=== PATIENT | female | born 1950 | race Caucasian/White ===

== ENCOUNTER 2017-05-31 11:53 | Emergency (ER) | payer MEDICARE ==
[~2017-05-31] VITALS: Ht 162.6 cm; Wt 90.7 kg
[~2017-05-31 11:53] MED LIST: ASP325T PO; ATEN50TA PO; GBPN300C PO; GLIP10TA13 PO; PNT40TEC PO; POTA20TA15 PO; SIMV40TA4 PO; SULF1TAB35 PO; THM100T PO
--- OUTSIDE RECORDS SUMMARY | 2017-05-31 11:59 | XMS REPORT ---
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
--- NOTE | 2017-05-31 12:09 | ED Neurological Problem ---
General Chief Complaint: Neuro-Stroke Like Symptoms Stated Complaint: THROAT FEELS LIKE IT IS CLOSING/SPEECH ISSUES Source: patient, family Exam Limitations: no limitations History of Present Illness Time seen by provider: 12:06 Initial Comments To ER with a 5 day history of difficulty swallowing and speech issues. Patient speaks in single words or very short phrases and when asked if she knows what she wants to say but can't get the words out she shakes her head yes. She states this began about a week ago. She feels that her symptoms are not any worse today than they were 5 days ago, she only presents today because her family insisted she be checked out. However, her daughter who is present reports that her symptoms of aphasia/dysphasia are worse today than they were yesterday. She does report a history of a stroke in the past. She is on a daily aspirin. She states she otherwise feels fine. Daughter reports that she did have a stroke in 2000 with some right-sided weakness. Timing/Duration: 1 week Severity: moderate Associated Symptoms: No numbness in legs/feet, No paresthesia, No ringing in ears, No seizures, No sleepy Allergies and Home Medications Allergies Coded Allergies: No Known Drug Allergies (Unverified , 04/17/12) Home Medications Aspirin 325 Mg Tab, 325 MG PO DAILY, (Reported) Atenolol 50 Mg Tablet, 50 MG PO DAILY, (Reported) Gabapentin 300 Mg Cap, 300 MG PO HS, (Reported) Glipizide 10 Mg Tablet, 10 MG PO DAILY, (Reported) Pantoprazole Sodium 40 Mg Tablet.dr, 40 MG PO DAILY, #30 (Reported) Constitutional: see HPI Eyes: No Symptoms Reported Ears, Nose, Mouth, Throat: no symptoms reported Respiratory: no symptoms reported Cardiovascular: no symptoms reported Genitourinary: no symptoms reported Musculoskeletal: no symptoms reported Skin: no symptoms reported Psychiatric/Neurological: See HPI Endocrine: No Symptoms Reported Hematologic/Lymphatic: No Symptoms Reported Past Qeibzwe-Cqtwhh-Jmache Hx Patient Social History Alcohol Use: Denies Use Recreational Drug Use: No Smoking Status: Current Everyday Smoker Type Used: Cigarettes Recent Hopitalizations: Yes Immunizations Up To Date Date of Pneumonia Vaccine: Feb 01, 2012 Date of Influenza Vaccine: Aug 12, 2013 Surgeries HX Surgeries: Yes (CAROTIDS) Respiratory Hx Respiratory Disorders: No Cardiovascular Hx Cardiac Disorders: Yes Neurological Hx Neurological Disorders: Yes (STROKE 01) Neurological Disorders: Stroke Reproductive System Hx Reproductive Disorders: No Genitourinary Hx Genitourinary Disorders: No Gastrointestinal Hx Gastrointestinal Disorders: Yes Gastrointestinal Disorders: Ulcer Musculoskeletal Hx Musculoskeletal Disorders: Yes Musculoskeletal Disorders: Arthritis Endocrine Hx Endocrine Disorders: Yes Endocrine Disorders: Diabetes, Non-Insulin dep HEENT HX ENT Disorders: No Cancer Hx Cancer: Yes Cancer: Skin Psychosocial Hx Psychiatric Problems: No Integumentary HX Skin/Integumentary Disorder: No Blood Transfusions Hx Blood Disorders: No Physical Exam Vital Signs Vital Sign - Last 12Hours 05/31/17 11:55 Temp 98.3 Pulse 58 Resp 18 B/P (MAP) 169/69 Pulse Ox 93 Capillary Refill : General Appearance: WD/WN HEENT: PERRL/EOMI, normal ENT inspection Neck: non-tender, full range of motion Respiratory: no respiratory distress, no accessory muscle use Cardiovascular: regular rate, rhythm, no murmur Gastrointestinal: normal bowel sounds, non tender, soft Neurologic/Psychiatric: alert, normal mood/affect, oriented x 3 Crainal Nerves: normal hearing, normal speech Motor/Sensory: no motor deficit, no sensory deficit Skin: normal color, warm/dry Comments She does speak in single words and very short phrases rather than in a fluent sentence as seen with expressive aphasia Stroke Onset of Symptoms Date of Onset of Symptoms: May 25, 2017 Onset of Symptoms: Yes NIH Stroke Scale Assessment Level of Consciousness: 0=Alert Level of Consciousness-Questio: 0=Answers both month/age LOC Commands: 0=Performs both tasks Gaze: 0=Normal Visual Bowman: 0=No visual loss Facial Movement (Facial Paresi: 0=Normal symmetrical mnt Motor Function-Arms Right: 0=No drift Motor Function-Arms Left: 0=No drift Motor Function-Legs Right: 0=No drift Limb Ataxia: 0=Absent Sensory: 0=Normal:no loss (she does have sharp sensory loss to bilateral lower extremities but reports that this is normal for her secondary to diabetes and the sensory loss is no greater than usual) Best Language: 1=Mild to moderat aphasia Dysarthria: 1=Mild to moderate loss Extinction & Inattention: 0=No abnormality NIH Stroke Scale Score: 2 Progress/Results/Core Measures Results/Orders Lab Results Laboratory Tests Test 05/31/17 12:10 Range/Units White Blood Count 8.8 4.3-11.0 10^3/uL Red Blood Count 4.99 4.35-5.85 10^6/uL Hemoglobin 15.2 11.5-16.0 G/DL Hematocrit 47 35-52 % Mean Corpuscular Volume 94 80-99 FL Mean Corpuscular Hemoglobin 31 25-34 PG Mean Corpuscular Hemoglobin Concent 32 32-36 G/DL Red Cell Distribution Width 14.9 H 10.0-14.5 % Platelet Count 343 130-400 10^3/uL Mean Platelet Volume 9.3 7.4-10.4 FL Neutrophils (%) (Auto) 66 42-75 % Lymphocytes (%) (Auto) 21 12-44 % Monocytes (%) (Auto) 9 0-12 % Eosinophils (%) (Auto) 4 0-10 % Basophils (%) (Auto) 1 0-10 % Neutrophils # (Auto) 5.8 1.8-7.8 X 10^3 Lymphocytes # (Auto) 1.8 1.0-4.0 X 10^3 Monocytes # (Auto) 0.8 0.0-1.0 X 10^3 Eosinophils # (Auto) 0.3 0.0-0.3 10^3/uL Basophils # (Auto) 0.1 0.0-0.1 10^3/uL Prothrombin Time 12.4 12.2-14.7 SEC INR Comment 1.0 0.8-1.4 Activated Partial Thromboplast Time 26 24-35 SEC D-Dimer 0.83 H 0.00-0.49 UG/ML Sodium Level 139 135-145 MMOL/L Potassium Level 4.2 3.6-5.0 MMOL/L Chloride Level 99 98-107 MMOL/L Carbon Dioxide Level 29 21-32 MMOL/L Anion Gap 11 5-14 MMOL/L Blood Urea Nitrogen 9 7-18 MG/DL Creatinine 0.76 0.60-1.30 MG/DL Estimat Glomerular Filtration Rate > 60 BUN/Creatinine Ratio 12 Glucose Level 119 H 70-105 MG/DL Calcium Level 10.0 8.5-10.1 MG/DL Total Bilirubin 0.6 0.1-1.0 MG/DL Aspartate Amino Transf (AST/SGOT) 13 5-34 U/L Alanine Aminotransferase (ALT/SGPT) 12 0-55 U/L Alkaline Phosphatase 77 40-136 U/L Total Protein 7.7 6.4-8.2 GM/DL Albumin 3.6 3.2-4.5 GM/DL My Orders Orders - BRITTON JEAN APRN Ct Head Wo-R/O Stroke (05/31/17 12:05) Cbc With Automated Diff (05/31/17 12:05) Comprehensive Metabolic Panel (05/31/17 12:05) Protime With Inr (05/31/17 12:05) Fibrin Degradation Products (05/31/17 12:05) Partial Thromboplastin Time (05/31/17 12:05) Chest 1 View, Ap/Pa Only (05/31/17 12:05) Ekg Tracing (05/31/17 12:05) Saline Lock/Iv-Start (05/31/17 12:05) Ct Chest W (05/31/17 12:44) Mri Brain W/Wo Contrast (05/31/17 12:48) Ns Iv 1000 Ml (Sodium Chloride 0.9%) (05/31/17 13:00) Iohexol Injection (Omnipaque 350 Mg/Ml 1 (05/31/17 13:00) Sodium Chloride Flush (Catheter Flush Sy (05/31/17 13:00) Medications Given in ED Current Medications Medications Dose Ordered Sig/Sunny Route Start Time Stop Time Status Last Admin Dose Admin Iohexol 75 ml ONCE ONCE IV 05/31/17 13:00 05/31/17 13:04 DC 05/31/17 13:39 75 ML Sodium Chloride 10 ml NEEDED PRN IV 05/31/17 13:00 05/31/17 13:39 10 ML Vital Signs/I&O Vital Sign - Last 12Hours 05/31/17 11:55 Temp 98.3 Pulse 58 Resp 18 B/P (MAP) 169/69 Pulse Ox 93 Diagnostic Imaging Diagonstic Imaging: CT Comments NAME: CHEMOPEDRO K [facility] REC#: [id number] PT STATUS: REG ER : 1950 PHYSICIAN: BRITTON JEAN APRN ADMIT DATE: 05/31/17/ER Draft Date of Exam:05/31/17 CT HEAD WO-R/O STROKE INDICATION: Difficulty speaking x1 week. Noncontrast brain CT is performed. There is no recent prior study for comparison. FINDINGS: There are mild diffuse atrophic changes. There is an old left frontal infarct involving the cortex and subcortical white matter and deep white matter. There is no acute hemorrhage or mass effect or midline shift. Calvarial windows are unremarkable. IMPRESSION: Old left frontal infarct. No acute hemorrhage or mass effect or acute intracranial finding. Dictated on workstation # [id number] Dict: 05/31/17 1232 Trans: 05/31/17 1235 [id number] Interpreted by: UBALDO BYRNES MD Electronically signed by: NAME: PEDRO MCLAIN [facility] REC#: [id number] PT STATUS: REG ER : 1950 PHYSICIAN: BRITTON JEAN APRN ADMIT DATE: 05/31/17/ER Draft Date of Exam:05/31/17 CT CHEST W PROCEDURE: CT chest with contrast only. TECHNIQUE: Multiple contiguous axial images were obtained through the chest after administration of intravenous contrast. INDICATION: Lung nodules. 75 ML of Omnipaque 350 is administered intravenously. FINDINGS: There is a 4.6 x 4.1 x 3.9 cm irregular mass in the lateral aspect of the left upper lobe with appearance consistent with lung cancer. A small nodule in a similar location was seen on 08/12/2013 measuring 1.2 CM. There is a circumscribed nodule measuring 2.1 CM in the left lower lobe enlarged from the previous exam where it measured 1.5 CM. It has intrinsic fat density and is likely a hamartoma. No other suspicious nodules or mass is identified. There are mild emphysema changes in the upper lobes with no significant consolidation or mass in the right lung. There are nonspecific minimally prominent lymph nodes in the left hilum up to 0.7 CM in size and there is a subaortic lymph node measuring 0.7 CM and right paratracheal lymph node measuring one CM in size. Borderline sized 1 cm right hilar lymph node is also seen. The heart size is slightly enlarged. There is no pericardial or pleural effusion. Sections in the upper abdomen demonstrate stable left adrenal nodule measuring 1.2 CM in size probably an adenoma. The osseous structures demonstrate degenerative changes with no suspicious mass. IMPRESSION: 1. There is a mass measuring 4.6 CM in the left upper lobe concerning for lung cancer. The lymph nodes seen in the alexus and mediastinum are borderline in size and may or may not be neoplastic. PET/CT evaluation is suggested. 2. The 2.1 cm nodule in the left lower lobe is likely related to hamartoma. 3. A 1.2 cm left adrenal nodule stable from the prior exam likely an adenoma. The findings were discussed with the KEREN Palumbo taking care of the patient at time of dictation. Dictated on workstation # [id number] Departure Communication Progress Notes 1508-I did discuss the case with Dr. Alexus Peters. She agrees to discharge the patient home with close follow-up. She will call me back with an appointment time. 1516-appointment time tomorrow morning at 820 a.m. Impression Impression: Primary Impression: Expressive aphasia Additional Impressions: left frontal cerebral infarct Lung mass Disposition: 01 HOME, SELF-CARE Condition: Stable Departure-Patient Inst. Decision time for Depature: 15:08 Referrals: [facility] (PCP) Primary Care Physician FERNY ROJAS (Family) Primary Care Physician Patient Instructions: Left-Side Stroke, NO INSTRUCTIONS GIVEN Add. Discharge Instructions: 1. Follow-up with [facility] 2. Return to ER for any concerns 3. All discharge instructions reviewed with patient and/or family. Voiced understanding. Copy Copies To 2: ALEXUS PETERS MD, PETER J APRN May 31, 2017 12:09
[2017-05-31 12:22] LABS: BASOPHILS # (AUTO) 0.1 10^3/uL (0.0-0.1); BASOPHILS % (AUTO) 1 % (0-10); EOSINOPHILS # (AUTO) 0.3 10^3/uL (0.0-0.3); EOSINOPHILS % (AUTO) 4 % (0-10); LYMPHOCYTES # (AUTO) 1.8 X 10^3 (1.0-4.0); LYMPHOCYTES % (AUTO) 21 % (12-44); MEAN CORPUSCULAR HEMOGLOBIN 31 PG (25-34); MEAN CORPUSCULAR HGB CONC 32 G/DL (32-36); MEAN CORPUSCULAR VOLUME 94 FL (80-99); MEAN PLATELET VOLUME 9.3 FL (7.4-10.4); MONOCYTES # (AUTO) 0.8 X 10^3 (0.0-1.0); MONOCYTES % (AUTO) 9 % (0-12); NEUTROPHILS # (AUTO) 5.8 X 10^3 (1.8-7.8); NEUTROPHILS % (AUTO) 66 % (42-75); PLATELET COUNT 343 10^3/uL (130-400); RED BLOOD COUNT 4.99 10^6/uL (4.35-5.85); RED CELL DISTRIBUTION WIDTH 14.9 % (10.0-14.5); WHITE BLOOD COUNT 8.8 10^3/uL (4.3-11.0)
[2017-05-31 12:28] LABS: PROTHROMBIN TIME PATIENT 12.4 SEC (12.2-14.7)
--- NOTE | 2017-05-31 12:35 | Diagnostic Imaging Report ---
INDICATION: Difficulty speaking x1 week. Noncontrast brain CT is performed. There is no recent prior study for comparison. FINDINGS: There are mild diffuse atrophic changes. There is an old left frontal infarct involving the cortex and subcortical white matter and deep white matter. There is no acute hemorrhage or mass effect or midline shift. Calvarial windows are unremarkable. IMPRESSION: Old left frontal infarct. No acute hemorrhage or mass effect or acute intracranial finding. Dictated by: Dictated on workstation # [id number]
[2017-05-31 12:38] LABS: ALANINE AMINOTRANSFERASE 12 U/L (0-55); ALBUMIN 3.6 GM/DL (3.2-4.5); ANION GAP 11 MMOL/L (5-14); ASPARTATE AMINO TRANSFERASE 13 U/L (5-34); BILIRUBIN,TOTAL 0.6 MG/DL (0.1-1.0); BLOOD UREA NITROGEN 9 MG/DL (7-18); BUN/CREATININE RATIO 12; CARBON DIOXIDE 29 MMOL/L (21-32); CHLORIDE 99 MMOL/L (98-107); CREATININE SERUM 0.76 MG/DL (0.60-1.30); GFR ESTIMATED > 60; GLUCOSE 119 MG/DL (70-105); POTASSIUM 4.2 MMOL/L (3.6-5.0); SODIUM 139 MMOL/L (135-145); TOTAL PROTEIN 7.7 GM/DL (6.4-8.2)
[2017-05-31] MEDS ORDERED: NS IV 1000 ML 1,000 ML IV SCH (13:00)
[2017-05-31] MEDS ORDERED: IOHEXOL 350 MG/ML 100 ML (OMNIPAQUE 350) VIAL IV ONE (13:00)
[2017-05-31] MEDS ORDERED: CATHETER FLUSH 10 ML SYR IV PRN (13:00)
--- NOTE | 2017-05-31 13:09 | Diagnostic Imaging Report ---
INDICATION: Difficulty articulating. Possible stroke. COMPARISON: 08/12/2013 FINDINGS: Single frontal view of the chest is obtained. Heart size is normal. The pulmonary vessels appear unremarkable. There is no pneumothorax or pleural fluid. There is a 6 cm lobulated mass in the left upper lobe considerably larger than on the prior study. There is also a 2.5 cm nodule in the left lower chest increased in size from the prior study. These are concerning for malignancy. The lungs are otherwise clear. IMPRESSION: There is an enlarging 6 cm lobulated mass in left upper lobe and there is an enlarging 2.6 cm nodule in the left lower lobe concerning for neoplasm. CT scan of the chest is recommended for further evaluation. Report given to Josue Suárez APRN, at 1:08 p.m. 05/31/2017/ariella Dictated by: Dictated on workstation # [id number]
[2017-05-31] MEDS ORDERED: GADOBUTROL 10 MMOL/10 ML (GADAVIST) VIAL IV ONE (14:00)
--- NOTE | 2017-05-31 14:08 | Diagnostic Imaging Report ---
PROCEDURE: CT chest with contrast only. TECHNIQUE: Multiple contiguous axial images were obtained through the chest after administration of intravenous contrast. INDICATION: Lung nodules. 75 ML of Omnipaque 350 is administered intravenously. FINDINGS: There is a 4.6 x 4.1 x 3.9 cm irregular mass in the lateral aspect of the left upper lobe with appearance consistent with lung cancer. A small nodule in a similar location was seen on 08/12/2013 measuring 1.2 CM. There is a circumscribed nodule measuring 2.1 CM in the left lower lobe enlarged from the previous exam where it measured 1.5 CM. It has intrinsic fat density and is likely a hamartoma. No other suspicious nodules or mass is identified. There are mild emphysema changes in the upper lobes with no significant consolidation or mass in the right lung. There are nonspecific minimally prominent lymph nodes in the left hilum up to 0.7 CM in size and there is a subaortic lymph node measuring 0.7 CM and right paratracheal lymph node measuring one CM in size. Borderline sized 1 cm right hilar lymph node is also seen. The heart size is slightly enlarged. There is no pericardial or pleural effusion. Sections in the upper abdomen demonstrate stable left adrenal nodule measuring 1.2 CM in size probably an adenoma. The osseous structures demonstrate degenerative changes with no suspicious mass. IMPRESSION: 1. There is a mass measuring 4.6 CM in the left upper lobe concerning for lung cancer. The lymph nodes seen in the alexus and mediastinum are borderline in size and may or may not be neoplastic. PET/CT evaluation is suggested. 2. The 2.1 cm nodule in the left lower lobe is likely related to hamartoma. 3. A 1.2 cm left adrenal nodule stable from the prior exam likely an adenoma. The findings were discussed with the KEREN Palumbo taking care of the patient at time of dictation. Dictated by: Dictated on workstation # [id number]
--- NOTE | 2017-05-31 14:30 | Diagnostic Imaging Report ---
PROCEDURE: MR imaging of the brain with and without contrast. TECHNIQUE: Multiplanar, multisequence MR imaging of the brain was performed with and without contrast. INDICATION: Difficulty speaking for a week. Suspicious lung mass, probably related to lung cancer is seen on chest imaging. 9 mL of Gadavist is administered intravenously. FINDINGS: There is no diffusion restriction to suggest an acute infarct. There is encephalomalacia in the left frontal lobe extending to the basal ganglia region with no mass effect and no associated abnormal enhancement suggestive of an old infarct. There is ex vacuo dilatation of the left frontal horn of the lateral ventricle. There is no hydrocephalus. There are periventricular and deep white matter T2 hyperintense signal areas without mass effect or enhancement compatible with chronic white matter ischemic changes. Similar findings in ryne white matter tracts are seen. The cerebellum appears unremarkable. The pituitary gland is not enlarged. No hypothalamic or pineal region mass. No extra-axial fluid collection is noted. The internal auditory canals and inner ear structures appear symmetric. There is a dominant left vertebral artery. The central vascular flow-voids appear symmetric. There is mucosal thickening in the left posterior ethmoidal air cells. The orbits appear symmetric. IMPRESSION: Findings compatible with a left frontal old infarct. No acute infarct or enhancing mass. Dictated by: Dictated on workstation # [id number]
[2017-05-31 15:30] VITALS: BP 148/72
== END 2017-05-31 15:30 | disposition home or self-care (01) ==
LOC: EDUNIT# 11:53 → ER 11:56
DX: R47.01 Aphasia (principal); R13.10 Dysphagia, unspecified; R91.8 Other nonspecific abnormal finding of lung field; E27.9 Disorder of adrenal gland, unspecified; E11.9 Type 2 diabetes mellitus without complications; F17.210 Nicotine dependence, cigarettes, uncomplicated; Z79.82 Long term (current) use of aspirin; Z79.84 Long term (current) use of oral hypoglycemic drugs; Z79.899 Other long term (current) drug therapy; Z86.73 Personal history of transient ischemic attack (TIA), and cerebral infarction without residual deficits
CPT/HCPCS: 36415; 70450; 70553; 71010; 71260; 80053; 85025; 85379; 85610; 85730; 93005; 96360

== ENCOUNTER 2017-06-02 09:03 | Observation (INO) | payer MEDICARE ==
[~2017-06-02] VITALS: Ht 162.6 cm; Wt 90.9 kg
--- NOTE | 2017-06-02 09:21 | ED Neurological Problem ---
General Stated Complaint: SOA Source: patient Exam Limitations: no limitations History of Present Illness Time seen by provider: 09:05 Initial Comments Here with report difficulty with swallowing. Reports that her tongue feels swollen although she is having difficulty forming words overall. Seen a few days ago for strokelike symptoms and ultimately was discharged home. States it' s worse this morning but patient is having difficulty expressing her thoughts/ concerns verbally. She is word searching and sometimes completely unable to form words. Denies breathing problems. Denies weakness otherwise and this seems to be affecting essentially just speech. Patient walked into the room with a steady gait. Denies chest pain or breathing problems. Denies nausea, vomiting or diarrhea. Symptoms worsened when she was trying to eat a bagel today although she has had persistent symptoms since onset prior to his visit 2 days ago.. Timing/Duration: 1 hour Severity: moderate Associated Symptoms: No confusion, No fatigue, No fever/chills, No nausea/ vomiting, No paresthesia, No seizures, slurred speech, No trouble walking, No weakness Allergies and Home Medications Allergies Coded Allergies: No Known Drug Allergies (Unverified , 04/17/12) Home Medications Aspirin 325 Mg Tab, 325 MG PO DAILY, (Reported) Atenolol 50 Mg Tablet, 50 MG PO DAILY, (Reported) Gabapentin 300 Mg Cap, 300 MG PO HS, (Reported) Glipizide 10 Mg Tablet, 10 MG PO DAILY, (Reported) Pantoprazole Sodium 40 Mg Tablet.dr, 40 MG PO DAILY, #30 (Reported) Constitutional: see HPI, No chills, No fever Eyes: No Symptoms Reported Ears, Nose, Mouth, Throat: see HPI, mouth swelling (tongue) Respiratory: no symptoms reported Cardiovascular: no symptoms reported Gastrointestinal: No nausea, No vomiting Genitourinary: no symptoms reported Musculoskeletal: no symptoms reported All Other Systems Reviewed Negative Unless Noted: Yes Past Ijovzoi-Hetbps-Yekryn Hx Patient Social History Alcohol Use: Denies Use Recreational Drug Use: No Smoking Status: Current Everyday Smoker Type Used: Cigarettes Recent Foreign Travel: No Contact w/Someone Who Travel: No Recent Hopitalizations: Yes Immunizations Up To Date Date of Pneumonia Vaccine: Feb 01, 2012 Date of Influenza Vaccine: Aug 12, 2013 Surgeries HX Surgeries: Yes (CAROTIDS) Surgeries: Vascular Surgery Respiratory Hx Respiratory Disorders: No Cardiovascular Hx Cardiac Disorders: Yes Cardiac Disorders: Hypertension Neurological Hx Neurological Disorders: Yes (STROKE 01) Neurological Disorders: Stroke Reproductive System Hx Reproductive Disorders: No Genitourinary Hx Genitourinary Disorders: No Gastrointestinal Hx Gastrointestinal Disorders: Yes Gastrointestinal Disorders: Ulcer Musculoskeletal Hx Musculoskeletal Disorders: Yes Musculoskeletal Disorders: Arthritis Endocrine Hx Endocrine Disorders: Yes Endocrine Disorders: Diabetes, Non-Insulin dep HEENT HX ENT Disorders: No Cancer Hx Cancer: Yes Cancer: Skin Psychosocial Hx Psychiatric Problems: No Integumentary HX Skin/Integumentary Disorder: No Blood Transfusions Hx Blood Disorders: No Reviewed Nursing Assessment Reviewed/Agree w Nursing PMH: Yes Family Medical History Significant Family History: No Pertinent Family Hx Physical Exam Vital Signs Vital Sign - Last 12Hours 06/02/17 09:15 Temp 98.2 Pulse 59 Resp 20 B/P (MAP) 150/70 Pulse Ox 95 O2 Delivery Room Air Capillary Refill : General Appearance: WD/WN, no apparent distress HEENT: PERRL/EOMI, pharyngeal erythema, other (tongue is not significantly swollen and there does not appear to be deviation.) Neck: full range of motion, supple Respiratory: lungs clear, normal breath sounds Cardiovascular: regular rate, rhythm, no murmur Peripheral Pulses: 2+ Dorsalis Pedis (R), 2+ Left Dors-Pedis (L), 2+ Radial Pulses (R), 2+ Radial Pulses (L) Gastrointestinal: non tender, soft Back: normal inspection, no CVA tenderness, no vertebral tenderness Extremities: non-tender, normal inspection Neurologic/Psychiatric: alert, oriented x 3 Crainal Nerves: abnormal speech, No tongue deviation to R, No tongue deviation to L Coordination/Gait: normal gait Motor/Sensory: sensory deficit (right lower decreased from left lower but reported as residual from previous stroke.) Skin: normal color, warm/dry Progress/Results/Core Measures Results/Orders Lab Results Laboratory Tests Test 06/02/17 09:25 06/02/17 11:01 Range/Units White Blood Count 9.3 4.3-11.0 10^3/uL Red Blood Count 4.99 4.35-5.85 10^6/uL Hemoglobin 15.2 11.5-16.0 G/DL Hematocrit 47 35-52 % Mean Corpuscular Volume 95 80-99 FL Mean Corpuscular Hemoglobin 31 25-34 PG Mean Corpuscular Hemoglobin Concent 32 32-36 G/DL Red Cell Distribution Width 14.9 H 10.0-14.5 % Platelet Count 324 130-400 10^3/uL Mean Platelet Volume 9.5 7.4-10.4 FL Neutrophils (%) (Auto) 72 42-75 % Lymphocytes (%) (Auto) 15 12-44 % Monocytes (%) (Auto) 6 0-12 % Eosinophils (%) (Auto) 7 0-10 % Basophils (%) (Auto) 0 0-10 % Neutrophils # (Auto) 6.6 1.8-7.8 X 10^3 Lymphocytes # (Auto) 1.4 1.0-4.0 X 10^3 Monocytes # (Auto) 0.6 0.0-1.0 X 10^3 Eosinophils # (Auto) 0.6 H 0.0-0.3 10^3/uL Basophils # (Auto) 0.0 0.0-0.1 10^3/uL Prothrombin Time 12.1 L 12.2-14.7 SEC INR Comment 0.9 0.8-1.4 Activated Partial Thromboplast Time 28 24-35 SEC D-Dimer 0.93 H 0.00-0.49 UG/ML Sodium Level 140 135-145 MMOL/L Potassium Level 4.1 3.6-5.0 MMOL/L Chloride Level 100 98-107 MMOL/L Carbon Dioxide Level 29 21-32 MMOL/L Anion Gap 11 5-14 MMOL/L Blood Urea Nitrogen 12 7-18 MG/DL Creatinine 0.79 0.60-1.30 MG/DL Estimat Glomerular Filtration Rate > 60 BUN/Creatinine Ratio 15 Glucose Level 139 H 70-105 MG/DL Glucometer 147 H 70-110 MG/DL Calcium Level 9.8 8.5-10.1 MG/DL Total Bilirubin 0.6 0.1-1.0 MG/DL Aspartate Amino Transf (AST/SGOT) 12 5-34 U/L Alanine Aminotransferase (ALT/SGPT) 10 0-55 U/L Alkaline Phosphatase 77 40-136 U/L Troponin I < 0.30 <0.30 NG/ML Total Protein 7.4 6.4-8.2 GM/DL Albumin 3.5 3.2-4.5 GM/DL Urine Color YELLOW Urine Clarity CLEAR Urine pH 6 5-9 Urine Specific [place] 1.015 L 1.016-1.022 Urine Protein NEGATIVE NEGATIVE Urine Glucose (UA) NEGATIVE NEGATIVE Urine Ketones NEGATIVE NEGATIVE Urine Nitrite NEGATIVE NEGATIVE Urine Bilirubin NEGATIVE NEGATIVE Urine Urobilinogen NORMAL NORMAL MG/DL Urine Leukocyte Esterase 1+ H NEGATIVE Urine RBC (Auto) NEGATIVE NEGATIVE Urine RBC NONE /HPF Urine WBC 2-5 /HPF Urine Squamous Epithelial Cells 25-50 H /HPF Urine Crystals NONE /LPF Urine Bacteria FEW H /HPF Urine Casts NONE /LPF Urine Mucus NEGATIVE /LPF Urine Culture Indicated YES My Orders Orders - PATRICK FINLEY MD Cbc With Automated Diff (06/02/17 09:12) Protime With Inr (06/02/17 09:12) Partial Thromboplastin Time (06/02/17 09:12) Comprehensive Metabolic Panel (06/02/17 09:12) Fibrin Degradation Products (06/02/17 09:12) Troponin I (06/02/17 09:12) Ua Culture If Indicated (06/02/17 09:12) Chest 1 View, Ap/Pa Only (06/02/17 09:12) Ekg Tracing (06/02/17 09:12) Nothing By Mouth (06/02/17 Lunch) Accucheck Stat ONCE (06/02/17 09:12) Saline Lock/Iv-Start (06/02/17 09:12) Vital Signs - Stroke Q15M (06/02/17 09:12) Ct Head Wo-R/O Stroke (06/02/17 09:12) O2 (06/02/17 09:12) Intake & Output 06,14,22 (06/02/17 09:12) Monitor-Rhythm Ecg Trace Only (06/02/17 09:12) Dysphagia Screening Tool (06/02/17 09:12) Ns Iv 500 Ml (Sodium Chloride 0.9%) (06/02/17 10:28) Urine Culture (06/02/17 11:01) Nicotine Patch (Nicoderm Patch) (06/02/17 11:45) Medications Given in ED Current Medications Medications Dose Ordered Sig/Sunny Route Start Time Stop Time Status Last Admin Dose Admin Sodium Chloride 500 ml @ 0 mls/hr Q0M ONCE IV 06/02/17 10:28 06/02/17 10:29 DC 06/02/17 10:37 0 MLS/HR Vital Signs/I&O Vital Sign - Last 12Hours 8/12/17 09:15 Temp 98.2 Pulse 59 Resp 20 B/P (MAP) 150/70 Pulse Ox 95 O2 Delivery Room Air Progress Note : Progress Note Seen and evaluated. IV, labs, EKG, chest x-ray and CT head ordered. Stroke scale to related to difficulty with answering questions and decreased sensation right lower extremity. Some of this is residual but some of this is new with respect to speech difficulty. 1010: CT and x-ray reviewed. Labs reviewed. Urine still pending. Patient has had 2 visits for similar events related to difficulty with swallowing and speech. Does have history of stroke with right- sided deficit. Also concerns for lung cancer. Due to the difficulty swallowing , do believe patient may benefit from inpatient rehabilitation. 1100: Patient will likely meet criteria for rehabilitation admission. Patient to be admitted observation due to difficulty with swallowing and then likely transfer to inpatient rehabilitation unit. UA pending. 1130: UA complete. Likely contamination. Admit, observation status. Patient and friend verbalize understanding instructions and agreement with plan. ECG Initial ECG Impression Date: Jun 02, 2017 Initial ECG Impression Time: : Initial ECG Rate: 50 Initial ECG Rhythm: Normal Sinus Comment Sinus rhythm with normal axis. No evidence of ST elevation DC. Unchanged from previous from 05/31/17. Interpreted by me. Diagnostic Imaging Diagonstic Imaging: CT Plain Films/CT/US/NM/MRI: head Comments VIA [facility], [facility]. [place], [place] NAME: PEDRO MCLAIN [facility] REC#: [id number] PT STATUS: REG ER : 1950 PHYSICIAN: PATRICK FINLEY MD ADMIT DATE: 06/02/17/ER Draft Date of Exam:06/02/17 CT HEAD WO-R/O STROKE INDICATION: History of stroke, mental status changes. COMPARISON: 05/31/2017. FINDINGS: There is an area of encephalomalacia involving the left frontoparietal lobe which is stable. There is no new area of acute ischemia or hemorrhage. There is no midline shift or mass effect. The bony calvarium and visualized paranasal sinuses are stable. Mastoid air cells are clear. IMPRESSION: Stable area of encephalomalacia in the left frontoparietal lobe. No new finding identified to suggest acute ischemia or hemorrhage. Dictated on workstation # [id number] Dict: 06/02/17 1000 Trans: 06/02/17 1012 [id number] Interpreted by: FRAN MCDUFFIE Electronically signed by: Juliette Imaging: Xray Plain Films/CT/US/NM/MRI: chest Comments NAME: PEDRO MCLIAN [facility] REC#: [id number] PT STATUS: REG ER : 1950 PHYSICIAN: PATRICK FINLEY MD ADMIT DATE: 06/02/17/ER Signed Date of Exam: 06/02/17 CHEST 1 VIEW, AP/PA ONLY INDICATION: Stroke. Comparison made with prior examination from 05/31/17. FINDINGS: There is a persistent mass in the left upper lobe. There is also mass adjacent to left heart border. There is cardiomegaly and some venous congestion. There is no pleural effusion or pneumothorax. The mediastinum is unremarkable. IMPRESSION: Unchanged masslike densities in the left upper lobe and left lower lobe as described. Cardiomegaly and some central pulmonary venous congestion. Dictated by: Dictated on workstation # [id number] Dict: 06/02/17 1000 Trans: 06/02/17 1010 Interpreted by: ANIA RM Electronically signed by: ANIA RM 06/02/17 1010 Departure Communication Time/Spoke to Admitting Phy: 11:30 Impression Impression: Primary Impression: Dysphagia Additional Impressions: Lung mass residual weakness from previous stroke Disposition: ADMITTED INPATIENT Condition: Stable Admissions Decision to Admit Reason: Admit from ER (General) Decision to Admit/Date: Jun 02, 2017 Time/Decision to Admit Time: 11:30 Departure-Patient Inst. Referrals: [facility] (PCP/Family) Primary Care Physician PATRICK FINLEY MD Jun 02, 2017 09:21
[2017-06-02 09:31] LABS: BASOPHILS % (AUTO) 0 % (0-10); EOSINOPHILS # (AUTO) 0.6 10^3/uL (0.0-0.3); EOSINOPHILS % (AUTO) 7 % (0-10); LYMPHOCYTES # (AUTO) 1.4 X 10^3 (1.0-4.0); LYMPHOCYTES % (AUTO) 15 % (12-44); MEAN CORPUSCULAR HEMOGLOBIN 31 PG (25-34); MEAN CORPUSCULAR HGB CONC 32 G/DL (32-36); MEAN CORPUSCULAR VOLUME 95 FL (80-99); MEAN PLATELET VOLUME 9.5 FL (7.4-10.4); MONOCYTES # (AUTO) 0.6 X 10^3 (0.0-1.0); MONOCYTES % (AUTO) 6 % (0-12); NEUTROPHILS # (AUTO) 6.6 X 10^3 (1.8-7.8); NEUTROPHILS % (AUTO) 72 % (42-75); PLATELET COUNT 324 10^3/uL (130-400); RED BLOOD COUNT 4.99 10^6/uL (4.35-5.85); RED CELL DISTRIBUTION WIDTH 14.9 % (10.0-14.5); WHITE BLOOD COUNT 9.3 10^3/uL (4.3-11.0)
[2017-06-02 09:43] LABS: INR 0.9 (0.8-1.4); PROTHROMBIN TIME PATIENT 12.1 SEC (12.2-14.7)
[2017-06-02 09:52] LABS: ALANINE AMINOTRANSFERASE 10 U/L (0-55); ALBUMIN 3.5 GM/DL (3.2-4.5); ANION GAP 11 MMOL/L (5-14); ASPARTATE AMINO TRANSFERASE 12 U/L (5-34); BILIRUBIN,TOTAL 0.6 MG/DL (0.1-1.0); BLOOD UREA NITROGEN 12 MG/DL (7-18); BUN/CREATININE RATIO 15; CALCIUM 9.8 MG/DL (8.5-10.1); CARBON DIOXIDE 29 MMOL/L (21-32); CHLORIDE 100 MMOL/L (98-107); CREATININE SERUM 0.79 MG/DL (0.60-1.30); GFR ESTIMATED > 60; GLUCOSE 139 MG/DL (70-105); POTASSIUM 4.1 MMOL/L (3.6-5.0); SODIUM 140 MMOL/L (135-145); TOTAL PROTEIN 7.4 GM/DL (6.4-8.2)
[2017-06-02 09:58] LABS: TROPONIN I < 0.30 NG/ML (<0.30)
--- NOTE | 2017-06-02 10:06 | Diagnostic Imaging Report ---
INDICATION: Stroke. Comparison made with prior examination from 05/31/17. FINDINGS: There is a persistent mass in the left upper lobe. There is also mass adjacent to left heart border. There is cardiomegaly and some venous congestion. There is no pleural effusion or pneumothorax. The mediastinum is unremarkable. IMPRESSION: Unchanged masslike densities in the left upper lobe and left lower lobe as described. Cardiomegaly and some central pulmonary venous congestion. Dictated by: Dictated on workstation # [id number]
--- NOTE | 2017-06-02 10:13 | Diagnostic Imaging Report ---
INDICATION: History of stroke, mental status changes. COMPARISON: 05/31/2017. FINDINGS: There is an area of encephalomalacia involving the left frontoparietal lobe which is stable. There is no new area of acute ischemia or hemorrhage. There is no midline shift or mass effect. The bony calvarium and visualized paranasal sinuses are stable. Mastoid air cells are clear. IMPRESSION: Stable area of encephalomalacia in the left frontoparietal lobe. No new finding identified to suggest acute ischemia or hemorrhage. Dictated by: Dictated on workstation # [id number]
[2017-06-02] MEDS ORDERED: NS IV 500 ML 500 ML IV ONE (10:28)
[2017-06-02 11:08] LABS: BILIRUBIN,URINE NEGATIVE (NEGATIVE); KETONES,URINE NEGATIVE (NEGATIVE); LEUKOCYTE ESTERASE ,URINE 1+ (NEGATIVE); NITRITE,URINE NEGATIVE (NEGATIVE); PH,URINE 6 (5-9); PROTEIN,URINE NEGATIVE (NEGATIVE); UROBILINOGEN,URINE NORMAL (NORMAL)
[2017-06-02 11:27] LABS: SQUAMOUS EPITHELIAL CELL,UR 25-50 /HPF
[2017-06-02] MEDS ORDERED: NICOTINE 21 MG (NICODERM) PATCH TD ONE (11:45)
[2017-06-02] MEDS ORDERED: NS IV 1000 ML 1,000 ML IV SCH (13:15)
[2017-06-02 15:01] VITALS: BP 150/70
[2017-06-02] MEDS ORDERED: RT-ALBUTEROL/IPRATROPIUM 3 ML (DUONEB) VIAL INH PRN (15:15)
[2017-06-02 15:43] VITALS: BP 133/67
[2017-06-02] MEDS: RT-ALBUTEROL/IPRATROPIUM 3 ML (DUONEB) VIAL INH SCH (18:30)
[2017-06-02 20:00] VITALS: BP 136/75
[2017-06-02] MEDS ORDERED: GABAPENTIN 300 MG (NEURONTIN) CAP PO SCH (22:30)
[2017-06-03] VITALS: BP 132/60
[2017-06-03 04:00] VITALS: BP 115/67
--- NOTE | 2017-06-03 04:37 | Short Stay Summary ---
HPI Attending Physician Alexus Peters MD PCP [facility] [place] Consult Date of Admission Jun 02, 2017 at 11:32 am Home Medications Home Medications Reviewed patient Home Medication Reconciliation Form Allergies Coded Allergies: No Known Drug Allergies (Unverified , 04/17/12) ZWG-Ybsbaw-Eqrzfk Hx Patient Social History Alcohol Use: Denies Use Recreational Drug Use: No Smoking Status: Current Everyday Smoker Type Used: Cigarettes 2nd Hand Smoke Exposure: Yes Recent Foreign Travel: No Contact w/other who traveled: No Recent Hopitalizations: Yes Recent Infectious Disease Expo: No Physical Abuse Screen: No Sexual Abuse: No Immunizations Up To Date Date of Pneumonia Vaccine: Feb 01, 2012 Date of Influenza Vaccine: Aug 12, 2013 Family Medical History Significant Family History: No Pertinent Family Hx Physical Exam-(CHC) Physical Exam Vital Signs VS - Last 72 Hours, by Label 06/02/17 06/02/17 06/02/17 06/02/17 09:15 15:01 15:43 18:33 Temp 98.2 96.9 Pulse 59 59 51 Resp 20 19 B/P (MAP) 150/70 133/67 Pulse Ox 95 95 93 93 O2 Delivery Room Air Room Air FiO2 21 06/02/17 06/03/17 06/03/17 20:00 00:00 04:00 Temp 99.2 98.0 98.2 Pulse 69 63 64 Resp 18 18 18 B/P (MAP) 136/75 132/60 115/67 Pulse Ox 93 95 94 O2 Delivery Room Air Capillary Refill : Less Than 3 Seconds Clinical Quality Measures DVT/VTE Risk/Contraindication: Risk Factor Score Per Nursin RFS Level Per Nursing on Admit: 4+=Very High Stroke: Date of last known well: May 26, 2017 ALEXUS PETERS MD Jun 03, 2017 4:37 am
[2017-06-03 06:39] LABS: BASOPHILS % (AUTO) 0 % (0-10); EOSINOPHILS # (AUTO) 0.6 10^3/uL (0.0-0.3); EOSINOPHILS % (AUTO) 7 % (0-10); LYMPHOCYTES # (AUTO) 0.8 X 10^3 (1.0-4.0); LYMPHOCYTES % (AUTO) 9 % (12-44); MEAN CORPUSCULAR HEMOGLOBIN 31 PG (25-34); MEAN CORPUSCULAR HGB CONC 32 G/DL (32-36); MEAN CORPUSCULAR VOLUME 94 FL (80-99); MEAN PLATELET VOLUME 9.5 FL (7.4-10.4); MONOCYTES # (AUTO) 0.6 X 10^3 (0.0-1.0); MONOCYTES % (AUTO) 7 % (0-12); NEUTROPHILS # (AUTO) 6.8 X 10^3 (1.8-7.8); NEUTROPHILS % (AUTO) 77 % (42-75); PLATELET COUNT 283 10^3/uL (130-400); RED BLOOD COUNT 4.72 10^6/uL (4.35-5.85); RED CELL DISTRIBUTION WIDTH 14.8 % (10.0-14.5); WHITE BLOOD COUNT 8.8 10^3/uL (4.3-11.0)
[2017-06-03] MEDS: RT-ALBUTEROL/IPRATROPIUM 3 ML (DUONEB) VIAL INH SCH ×4 (06:47→18:52)
[2017-06-03 07:01] LABS: ALANINE AMINOTRANSFERASE 9 U/L (0-55); ALBUMIN 3.2 GM/DL (3.2-4.5); ANION GAP 10 MMOL/L (5-14); ASPARTATE AMINO TRANSFERASE 14 U/L (5-34); BILIRUBIN,TOTAL 0.7 MG/DL (0.1-1.0); BLOOD UREA NITROGEN 12 MG/DL (7-18); BUN/CREATININE RATIO 18; CALCIUM 9.3 MG/DL (8.5-10.1); CARBON DIOXIDE 26 MMOL/L (21-32); CHLORIDE 101 MMOL/L (98-107); CREATININE SERUM 0.68 MG/DL (0.60-1.30); GFR ESTIMATED > 60; GLUCOSE 135 MG/DL (70-105); POTASSIUM 4.3 MMOL/L (3.6-5.0); SODIUM 137 MMOL/L (135-145); TOTAL PROTEIN 6.9 GM/DL (6.4-8.2)
[2017-06-03 08:00] VITALS: BP 136/73
[2017-06-03] MEDS: NICOTINE 21 MG (NICODERM) PATCH TD SCH (09:28)
[2017-06-03] MEDS: PATCH REMOVAL TP SCH (09:28)
[2017-06-03 12:00] VITALS: BP 140/72
--- NOTE | 2017-06-03 13:02 | History & Physicial (CHS) ---
HPI History of Present Illness: 66yo woman presented to ER with complaints of dysphagia. Has been worsening over the past few weeks. Was found to have metastatic cancer which is thought to be a lung primary. She was seen in ER on and preferred not to stay , so outpatient follow up was arranged. She did follow up with her PCP on Sunday morning, and arrangements were made to see Dr Alcala and oncology. She presented to ER on Sunday with worsening dysphagia, and she is barely able to get any fluids down without choking and coughing. She was unable to pass her dysphagia screen in ER and so was admitted for observatino to include a swallow study and possible rehab. Pt has a history of strokes, but she states taht the difficulty swallowing did not occur acutely and has been wrosening over time. Source: patient Exam Limitations: no limitations Date seen by provider: Jun 03, 2017 Time Seen by Provider: 09:00 Attending Physician Alexus Choi MD PCP [facility] [place] Consult Date of Admission Jun 02, 2017 at 11:32 am Home Medications Home Medications Reviewed patient Home Medication Reconciliation Form Allergies Coded Allergies: No Known Drug Allergies (Unverified , 04/17/12) VXL-[id number]-Gdpqla Hx Patient Social History Alcohol Use: Denies Use Recreational Drug Use: No Smoking Status: Current Everyday Smoker Type Used: Cigarettes 2nd Hand Smoke Exposure: Yes Recent Foreign Travel: No Contact w/other who traveled: No Recent Hopitalizations: Yes Recent Infectious Disease Expo: No Physical Abuse Screen: No Sexual Abuse: No Immunizations Up To Date Date of Pneumonia Vaccine: Feb 01, 2012 Date of Influenza Vaccine: Aug 12, 2013 Family Medical History Significant Family History: No Pertinent Family Hx Review of Systems (CHC) Constitutional: no symptoms reported All Other Systems Reviewed Negative Unless Noted: Yes (Negative excepted noted.) Reviewed Test Results Reviewed Test Results Lab Laboratory Tests Test 06/02/17 09:25 06/02/17 11:01 06/03/17 06:20 Range/Units White Blood Count 9.3 8.8 4.3-11.0 10^3/uL Red Blood Count 4.99 4.72 4.35-5.85 10^6/uL Hemoglobin 15.2 14.4 11.5-16.0 G/DL Hematocrit 47 44 35-52 % Mean Corpuscular Volume 95 94 80-99 FL Mean Corpuscular Hemoglobin 31 31 25-34 PG Mean Corpuscular Hemoglobin Concent 32 32 32-36 G/DL Red Cell Distribution Width 14.9 H 14.8 H 10.0-14.5 % Platelet Count 324 283 130-400 10^3/uL Mean Platelet Volume 9.5 9.5 7.4-10.4 FL Neutrophils (%) (Auto) 72 77 H 42-75 % Lymphocytes (%) (Auto) 15 9 L 12-44 % Monocytes (%) (Auto) 6 7 0-12 % Eosinophils (%) (Auto) 7 7 0-10 % Basophils (%) (Auto) 0 0 0-10 % Neutrophils # (Auto) 6.6 6.8 1.8-7.8 X 10^3 Lymphocytes # (Auto) 1.4 0.8 L 1.0-4.0 X 10^3 Monocytes # (Auto) 0.6 0.6 0.0-1.0 X 10^3 Eosinophils # (Auto) 0.6 H 0.6 H 0.0-0.3 10^3/uL Basophils # (Auto) 0.0 0.0 0.0-0.1 10^3/uL Prothrombin Time 12.1 L 12.2-14.7 SEC INR Comment 0.9 0.8-1.4 Activated Partial Thromboplast Time 28 24-35 SEC D-Dimer 0.93 H 0.00-0.49 UG/ML Sodium Level 140 137 135-145 MMOL/L Potassium Level 4.1 4.3 3.6-5.0 MMOL/L Chloride Level 100 101 98-107 MMOL/L Carbon Dioxide Level 29 26 21-32 MMOL/L Anion Gap 11 10 5-14 MMOL/L Blood Urea Nitrogen 12 12 7-18 MG/DL Creatinine 0.79 0.68 0.60-1.30 MG/DL Estimat Glomerular Filtration Rate > 60 > 60 BUN/Creatinine Ratio 15 18 Glucose Level 139 H 135 H 70-105 MG/DL Glucometer 147 H 70-110 MG/DL Calcium Level 9.8 9.3 8.5-10.1 MG/DL Total Bilirubin 0.6 0.7 0.1-1.0 MG/DL Aspartate Amino Transf (AST/SGOT) 12 14 5-34 U/L Alanine Aminotransferase (ALT/SGPT) 10 9 0-55 U/L Alkaline Phosphatase 77 68 40-136 U/L Troponin I < 0.30 <0.30 NG/ML Total Protein 7.4 6.9 6.4-8.2 GM/DL Albumin 3.5 3.2 3.2-4.5 GM/DL Urine Color YELLOW Urine Clarity CLEAR Urine pH 6 5-9 Urine Specific [place] 1.015 L 1.016-1.022 Urine Protein NEGATIVE NEGATIVE Urine Glucose (UA) NEGATIVE NEGATIVE Urine Ketones NEGATIVE NEGATIVE Urine Nitrite NEGATIVE NEGATIVE Urine Bilirubin NEGATIVE NEGATIVE Urine Urobilinogen NORMAL NORMAL MG/DL Urine Leukocyte Esterase 1+ H NEGATIVE Urine RBC (Auto) NEGATIVE NEGATIVE Urine RBC NONE /HPF Urine WBC 2-5 /HPF Urine Squamous Epithelial Cells 25-50 H /HPF Urine Crystals NONE /LPF Urine Bacteria FEW H /HPF Urine Casts NONE /LPF Urine Mucus NEGATIVE /LPF Urine Culture Indicated YES Physical Exam-(CHC) Physical Exam Vital Signs VS - Last 72 Hours, by Label 06/02/17 06/02/17 06/02/17 06/02/17 09:15 15:01 15:43 18:33 Temp 98.2 96.9 Pulse 59 59 51 Resp 20 19 B/P (MAP) 150/70 133/67 Pulse Ox 95 95 93 93 O2 Delivery Room Air Room Air FiO2 21 06/02/17 06/03/17 06/03/17 06/03/17 20:00 00:00 04:00 06:47 Temp 99.2 98.0 98.2 Pulse 69 63 64 Resp 18 18 18 B/P (MAP) 136/75 132/60 115/67 Pulse Ox 93 95 94 92 O2 Delivery Room Air Room Air 06/03/17 06/03/17 06/03/17 06/03/17 08:00 08:00 10:00 12:00 Temp 99.0 98.6 Pulse 65 70 Resp 20 18 B/P (MAP) 136/73 140/72 Pulse Ox 92 93 93 O2 Delivery Room Air Room Air Room Air 06/03/17 06/03/17 06/03/17 15:05 16:20 18:52 Temp 98.5 Pulse 72 Resp 18 B/P (MAP) 157/73 Pulse Ox 94 95 95 O2 Delivery Room Air Room Air Room Air Capillary Refill : Less Than 3 SecondsLess Than 3 Seconds General Appearance: WD/WN, no apparent distress HEENT: PERRL/EOMI, normal ENT inspection, pharynx normal Neck: non-tender, full range of motion, supple, normal inspection Respiratory: chest non-tender, lungs clear, normal breath sounds, no respiratory distress, no accessory muscle use Cardiovascular: regular rate, rhythm, no edema, no gallop, no JVD, no murmur Gastrointestinal: normal bowel sounds, non tender, soft, no organomegaly, no pulsatile mass Extremities: normal range of motion, non-tender, normal inspection, no pedal edema, no calf tenderness, normal capillary refill Neurologic/Psychiatric: closet organizer II-XII nml as tested, no motor/sensory deficits, alert, normal mood/affect, oriented x 3 Skin: normal color, warm/dry Assessment/Plan Assessment/Plan Admission Dx SEE BELOW Plan DYSPHASIA ADMIT - We had anticipated an IRF eval. However, due to the weekend, we were not able to bring in the staff to do a complete eval. We will re-consider this option tomorrow when PT, OT, and speech are available. I have already talked with Kira Ruano RN from IRF to see what options exist for her. She will need rehab on at least 2 of the 3 disciplines in order to qualify for the IRF service. - She is on a mechanical soft diet and honey thickened liquids for now. - I recommend a surgical consult for PEG placement. HOwever, this should likely be discussed with her primary oncologist and/or Dr Alcala prior to bringing this option to the patient as I do not currently know the extent of her disease process and overall prognosis for this particular issue. STROKE SYNDROME WITH RESIDUAL DEFICITS ADM - PT/OT/Speech eval tomorrow; it is not clear what is residual and what is acute at the present time DIABETES MELLITUS - Diabetic diet - Restart RENAE today - will do finger checks and add insulin if necessary - I am more concerend about hypoglycemic from decreased PO intake than her BS running too high HTN - restart home meds CHRONIC PAIN - pt complaining of leg pain, usually on neurontin, restart that today - also takes tylenol with some frequency which we will restart ELEVATED D-DIMER - expected given her disease state - do not anticipate infection but malignancy - no si/sx of DVT/PE DVT PROPH: SCDs, ambulation Diagnosis/Problems: Clinical Quality Measures DVT/VTE Risk/Contraindication: Risk Factor Score Per Nursin RFS Level Per Nursing on Admit: 4+=Very High Stroke: Date of last known well: May 26, 2017 Copy Copies To 1: ALEXUS CESAR APRN, MD Jun 03, 2017 1:02 pm
[2017-06-03] MEDS: ATENOLOL 50 MG (TENORMIN) TAB PO SCH (14:25)
[2017-06-03] MEDS: ASPIRIN 325 MG (5 GR) TABLET PO SCH (14:25)
[2017-06-03] MEDS: glipiZIDE 5 MG (GLUCOTROL) TAB PO SCH (14:25)
[2017-06-03] MEDS: PANTOPRAZOLE 40 MG (PROTONIX) TAB PO SCH (14:25)
[2017-06-03 16:20] VITALS: BP 157/73
[2017-06-03 19:07] VITALS: BP 148/80
[2017-06-03] MEDS: GABAPENTIN 300 MG (NEURONTIN) CAP PO SCH (20:11)
[2017-06-04 00:11] VITALS: BP 157/73
[2017-06-04 04:00] VITALS: BP 148/80
[2017-06-04] MEDS: glipiZIDE 5 MG (GLUCOTROL) TAB PO SCH (06:02)
[2017-06-04] MEDS: RT-ALBUTEROL/IPRATROPIUM 3 ML (DUONEB) VIAL INH SCH ×4 (07:15→18:55)
[2017-06-04 08:00] VITALS: BP 171/71
[2017-06-04] MEDS: NICOTINE 21 MG (NICODERM) PATCH TD SCH (08:30)
[2017-06-04] MEDS: ATENOLOL 50 MG (TENORMIN) TAB PO SCH (08:30)
[2017-06-04] MEDS: ASPIRIN 325 MG (5 GR) TABLET PO SCH (08:30)
[2017-06-04] MEDS: PATCH REMOVAL TP SCH (08:30)
[2017-06-04] MEDS: GABAPENTIN 300 MG (NEURONTIN) CAP PO SCH ×3 (08:30→20:00)
[2017-06-04] MEDS: PANTOPRAZOLE 40 MG (PROTONIX) TAB PO SCH (08:30)
--- NOTE | 2017-06-04 09:48 | Physical Therapy Evaluation ---
PT Evaluation-General Medical Diagnosis Admission Date Jun 02, 2017 at 11:32 Medical Diagnosis: dysphagia Onset Date: Jun 02, 2017 Therapy Diagnosis Therapy Diagnosis: debility Height/Weight Height (Feet): 5 Height (Inches): 4.00 Weight (Pounds): 200 Weight (Ounces): 5.0 Precautions Precautions/Isolations: Aspiration, Standard Precautions, Pressure Ulcer Referral Physician: Sidra Choi Reason for Referral: Evaluation/Treatment Medical History Pertinent Medical History: CVA, DM, HTN, Smoking Additional Medical History CVA 2000; 2012 dysphagia episode Current History residual CVA, difficulty swallowing at home and tongue feels "thick" found lung mass and is found to have metastatic cancer per report Reviewed History: Yes Social History Home: Apartment Current Living Status: Alone Entry Into Home: Level Entry Prior/Core FIM Prior Level of Function Functional [place] Measure 0=Not Assessed/NA 4=Minimal Assistance 1=Total Assistance 5=Supervision or Setup 2=Maximal Assistance 6=Modified [place] 3=Moderate Assistance 7=Complete [place] Bed Mobility: 6 Transfers (B,C,W/C) (FIM): 6 Gait: 6 uses cane PLOF PT Evaluation-Current Subjective Patient agrees to PT. She states she continues to have difficulty swallowing her spit, however, is on a pureed diet. Pain Numeric Pain Scale: 0-No Pain Location: No Pain Reported Objective Patient Orientation: Normal For Age Problem Solving: Good ROM/Strength ROM Lower Extremities bilateral LE WNL Strenght Lower Extremities bilateral LE WNL Integumentary/Posture Integumentary refer to nursing notes Bowel Incontinence: No Bladder Incontinence: No Posture WNL Neuromuscular (Tone, Coordination, Reflexes) grossly intact Sensory Vision: Functional Hearing: Functional Sensation Right Lower Extremit: Impaired Sensation Left Lower Extremity: Impaired Transfers Functional [place] Measure 0=Not Assessed/NA 4=Minimal Assistance 1=Total Assistance 5=Supervision or Setup 2=Maximal Assistance 6=Modified [place] 3=Moderate Assistance 7=Complete [place] Transfers (B, C, W/C) (FIM): 6 Scootin Rollin Supine to/from Sit: 6 Gait Mode of Locomotion: Walk Anticipated Mode of Locomotion: Walk Gait (FIM): 6 Distance (FIM): 3=150 ft Distance: 400' Gait Level of Assist: 6 Gait Assistive Device: Cane Single Point Comments/Gait Description safe and functional with cane Balance Sitting Static: Normal Sitting Dynamic: Normal Standing Static: Normal Standing Dynamic: Normal Assessment/Needs 66 y.o. female, will be seen short term by skilled PT to ensure safe return to home at maximum LOF. Patient is limited with dysphagia with all gross motor skills intact. Rehab Potential: Good PT Short Term Goals Short Term Goals Time Frame: Jun 08, 2017 Transfers (B,C,W/C) (FIM): 6 Gait (FIM): 6 Distance (FIM): 3=150 ft Gait Level of Assist: 6 Gait Assistive Device: Cane Single Point PT Plan Problem List Problem List: Activity Tolerance Treatment/Plan Treatment Plan: Continue Plan of Care Treatment Plan: Education, Functional Activity [place], Functional Strength, Gait , Safety, Therapeutic Exercise, Transfers Treatment Duration: Jun 08, 2017 Frequency: 5 times per week Estimated Hrs Per Day: .25 hour per day Patient and/or Family Agrees t: Yes Safety Risks/Education Patient Education: Safety Issues Teaching Recipient: Patient Teaching Methods: Discussion Response to Teaching: Verbalize Understanding Discharge Recommendations Therapy D/C Recommendations: Home Independently Time/GCodes Time In: 845 Time Out: 855 Total Billed Treatment Time: 10 Total Billed Treatment 1 visit EVLowC 10 min G Codes Necessary: MARIANO Landaverde PT Jun 04, 2017 09:47
--- NOTE | 2017-06-04 10:45 | Progress Note (SOAP) ---
Subjective Subjective/Events-last exam States that she is feeling fine this AM. Still having troubles swallowing. Denies any pain. Patient does not qualify for IRF Review of Systems Date Seen by Provider: Jun 04, 2017 Time Seen by Provider: 10:10 General: No Chills, No Night Sweats Pulmonary: Dyspnea (Overnight that resolved with oxygen) Cardiovascular: No: Chest Pain, Orthopnea Gastrointestinal: No: Abdominal Pain, Nausea, Vomiting Genitourinary: No Dysuria, No Frequency Neurological: Other (dysphagia and dysarthria), Weakness Objective Exam Last Set of Vital Signs Vital Signs Date Time Temp Pulse Resp B/P (MAP) Pulse Ox O2 Delivery O2 Flow Rate FiO2 06/04/17 08:32 Nasal Cannula 1.00 06/04/17 08:00 97.7 68 20 171/71 94 06/02/17 15:01 21 Capillary Refill : Less Than 3 SecondsLess Than 3 Seconds I&O Intake and Output 06/04/17 00:00 Intake Total 1640 ml Balance 1640 ml Intake Oral 1640 ml # Voids 5 # Bowel Movements 1 General: Alert, Oriented X3, Cooperative, No Acute Distress HEENT: Mucous Memb Moist/[place], Other (having troubles clearing secreations) Lungs: Clear to Auscultation, Normal Air Movement Heart: Regular Rate, No Murmurs Abdomen: Normal Bowel Sounds, Soft, No Tenderness, No Hepatosplenomegaly, No Masses Extremities: No Edema, No Tenderness/Swelling Neuro: Strength at 5/5 X4 Ext, Sensation Intact, Cranial Nerves 3-12 NL Psych/Mental Status: Mental Status NL, Mood NL Results/Procedures Lab Laboratory Tests 06/04/17 06:01: Glucometer 117H Microbiology 06/02/17 Urine Culture - Final, Complete Assessment/Plan Assessment/Plan Admission Dx SEE BELOW Plan DYSPHASIA - CT w/o any acute changes, likely 2/2 to mass in chest - She is on a mechanical soft diet and honey thickened liquids for now. - Discussed PEG tube, patient states that she feels she can eat better, may need placement as outpatient STROKE SYNDROME WITH RESIDUAL DEFICITS - Stable LEFT APICAL LUNG MASS - Oncology and Pulmonology consults placed DIABETES MELLITUS - Diabetic diet - Restart RENAE today - will do finger checks and add insulin if necessary - I am more concerned about hypoglycemic from decreased PO intake than her BS running too high HTN: elevated this AM - restart home meds CHRONIC PAIN: Stable today ELEVATED D-DIMER - expected given her disease state - do not anticipate infection but malignancy - no si/sx of DVT/PE TOBACCO USE - Discussed the importance of cessation DVT PROPH: SCDs, Lovenox 40 daily Dispo: Continue admission, will have oncology and pulmonology see patient in hosp Diagnosis/Problems: Clinical Quality Measures DVT/VTE Risk/Contraindication: Risk Factor Score Per Nursin RFS Level Per Nursing on Admit: 4+=Very High Stroke: Date of last known well: May 26, 2017 JUAN SOLARES MD Jun 04, 2017 10:45
[2017-06-04] MEDS ORDERED: GABA-490 PO (11:04)
[2017-06-04] MEDS ORDERED: OXYB10TA PO (11:04)
[2017-06-04] MEDS ORDERED: ATOR20TA66 PO (11:04)
--- NOTE | 2017-06-04 11:32 | ST Dysphagia Evaluation ---
Speech Evaluation-General Medical Diagnosis Oral Dysphagia Onset Date: Jun 02, 2017 Therapy Diagnosis Therapy Diagnosis: Mild Oral Dysphagia Precautions Precautions: Aspiration Precautions/Isolations: Aspiration, Standard Precautions, Pressure Ulcer Referral Referring Physician: Dr. Sidra Choi Reason for Referral: Evaluation/Treatment Clinical Bedside Swallowing Evaluation Medical History Pertinent Medical History: Arthritis, CVA, DM, HTN, Smoking Reviewed History: Yes Social History Current Living Status: Alone Speech PLF/Current-Dysphagia Prior Level of Function The patient denied prior challenges with swallowing, reporting she consumed a regular diet with thin liquids at home. Subjective The patient was recently admitted to [facility] with a diagnosis of dysphagia. Per patient, her tongue feels "swollen." Additionally, the patient reports increased drooling over the past week. The patient denied signs/ symptoms of aspiration, stating, "I said I didn't cough on anything and I can eat anything I want, it just feels big." The patient denied recent chest infections, including pneumonia. CXR: 06/02/17: Unchanged masslike densities in the left upper lobe and left lower lobe, as described. Cardiomegaly and some central pulmonary venous congestion. Cognitive Status Patient Orientation: Person, Place, Time, Situation Oral Motor Skills Dentition: Edentalous Denture Type: Partial- Upper & Lower Current Food Consistancy: Pureed, Honey Liquids Ability to Follow Directions: Excellent Oral Expression Ability: Mild Impairment Observation: Excessive Secretions Oral Voice Voice Phonatory-Based Quality: Normal Voice Pitch: Normal Voice Loudness: Normal Face Facial Symmetry: Symmetrical Oral-Facial Assessment Oral-Facial Dentition: Normal Labial Seal Description: Normal Smile: Normal Puff Cheeks: Normal Lingual Protrusion: Normal Lingual ROM: Abnormal (Mildly reduced range of motion laterally.) Lingual Strength: Normal Pharynx Velopharyngeal Move.: Normal Volitional Dry Swallow: Yes (The patient denied odynophagia upon a dry swallow. ) Dysphagia Evaluation Consistencies Presented: Regular, Thin Liquid, Pureed Oral Phase: Oral Residue - Mild oral residue was noted with solid consistencies. The patient was able to clear oral residue with a subsequent thin liquid swallow. - No pharyngeal deficits were noted throughout the evaluation. - No signs/symptoms of aspiration were demonstrated with eight ounces of tea ( via straw), four ounces of puree, or one riya cracker. The patient's vocal quality remained clear throughout bolus trials. Excessive secretions were noted in the oral cavity. Dietary Recommendations: Regular Liquid Recommendations: Thin Swallowing Precautions: Alternate Liquids/Solids, Small Bites and Sips, Sitting Upright 90 Degrees - Swallow more frequently to clear oral secretions. Dysphagia Evaluation Summary - The patient demonstrated mild oral dysphagia characterized by minimally reduced lingual lateral range of motion. No signs/symptoms of aspiration were demonstrated. Speech-Plan Treatment Plan Speech Therapy Treatment Plan: Discontinue ST Speech pathology treatment is not warranted at this time. Speech pathology defers treatment to primary care physician as rationale/reason for reduced lingual sensation and "edema" is unknown to this clinician. Frequency: Daily (Skilled speech pathology treatment not warranted at this time.) Estimated Hrs Per Day: .25 hour per day (Skilled speech pathology treatment not warranted at this time.) Rehab Potential: Good Safety Risks/Education Teaching Recipient: Patient Teaching Methods: Discussion Response to Teaching: Verbalize Understanding Education Topics Provided: Results, Recommendations, Plan of Care, Signs/Symptoms of Aspiration Time Speech Therapy Time In: 10:45 Speech Therapy Time Out: 11:00 Total Billed Time: 15 Billed Treatment Time 1, DYSEVS Speech GCodes Complexity Level Test(s)/Tool Used to Determine: Level of Assistance Scale Functional Limitation-Current Current: SWALCUR Modifier: CI Functional Limitation-Goal Goal: SWALGOAL Modifier: CI Functional Limitation-D/C Discharge: [facility] Modifier: CI ALLISON ZENDEJAS Jun 04, 2017 11:32
[2017-06-04 12:00] VITALS: BP 132/61
--- NOTE | 2017-06-04 12:49 | Occupational Therapy Eval ---
OT Evaluation-General/PLF Medical Diagnosis Admission Date Jun 02, 2017 at 11:32 Medical Diagnosis: Oral Dysphagia Onset Date: Jun 02, 2017 Therapy Diagnosis Therapy Diagnosis: Decreased ADL skills Height/Weight Height (Feet): 5 Height (Inches): 4.00 Weight (Pounds): 200 Weight (Ounces): 5.0 Precautions Precautions/Isolations: Aspiration, Standard Precautions, Pressure Ulcer Safety Interventions: None Referral Physician: Sidra Choi Referral Reason: Activity Tolerance, Self Care, Evaluation/Treatment, Strengthening/ROM Medical History Pertinent Medical History: Arthritis, CVA, DM, HTN, Smoking Additional Medical History Chronic pain Current History Pt. came to ER with stroke syndrome with residual deficits. Experiencing dysphagia and swallowing deficits. Reviewed History: Yes Social History Home: Single Level Current Living Status: Alone Entry Into Home: Level Entry ADL-Prior Level of Function ADL PLOF Comments Pt. lives in [place]. Does not drive. States that she is independent with all daily needs. However, has someone that gets her groceries and cleans her house for her. DME/Equipment: Bath Chair, Tub/Shower DME/Equipment Comments Pt. utilizes a cane for ambulation. But states that this is only for ambulation outside of her apartment. Pt. states that she would like a walk in shower, and that she can have one if she wants. Drive Self: No OT Current Status Subjective Pt. does not report pain. However, does have difficulty speaking due to dysphagia issues. Pt. also has difficulty swallowing. Appearance Pt. up in chair. Is dressed. States that she showered yesterday. Declines showering today. Pt. adamant that she is independent with daily tasks. States that she is able to bathe and dress self. States that her only issues are "swallowing." Mental Status/Objective Patient Orientation: Person, Place, Time, Situation Attachments: Oxygen Current Glasses/Contacts: Yes Upper Extremity ROM WFL- Pt. is able to demonstrate full ROM bilaterally within all planes. Upper Extremity Coordination intact Upper Extremity Strength WFL ADL-Treatment Functional [place] Measure 0=Not Assessed/NA 4=Minimal Assistance 1=Total Assistance 5=Supervision or Setup 2=Maximal Assistance 6=Modified [place] 3=Moderate Assistance 7=Complete IndependenceIRFPAI Quality Coding Scale 6 Independent with activity with or without an assistive device 5 Patient requires set up or clean up by helper. Patient completes activity by themselves 4 Supervision or touching assist (CGA). [place] provide cues , steadying assist 3 The helper provides less than half the effort to complete the activity 2 The helper provides more than half the effort to complete the activity 1 Dependent. The helper does all the effort to complete an activity 7 Patient refused to complete or attempt activity 9 The patient did not perform the activity before the current illness or injury 88 Not attempted due to Medical conditions or safety concerns Lower Body Dressing (FIM): 6 (Pt. dressed self this morning previous to OT arriving. Pt. demonstrates ability to doff/don shoes independently today with OT.) Transfers (B, C, W/C) (FIM): 6 (Pt. is able to stand and ambulate with cane with mod I.) Pt. demonstrates good balance when standing. Demonstrates appropriate ROM bilaterally in Upper extremities. Pt. verbalizes that she dressed self already today. Pt. declines all attempts at showering, as she showered yesterday. Pt. states that her only deficit right now is swallowing and speaking. OT explains to her purpose of evaluation, and possibility of inpatient rehab. Pt. verbalizes that she wants to go home. Does not feel that she needs occupational therapy. Pt. verbalizes that she has had BM, and is even able to cleanse self. States that she would like to go home. This therapist feels that pt. would benefit from home health speech therapy, until she can progress to outpt speech therapy. Have made this known to pt. Have spoke with inpt. rehab coordinator. Pt. has made her wishes known to coordinator as well. All needs met in room. Education OT Patient Education: Purpose of tx/functional activities, Rehab process, Transfer techniques Teaching Recipient: Patient Teaching Methods: Demonstration, Discussion Response to Teaching: Verbalize Understanding, Return Demonstration OT Short Term Goals Short Term Goals Transfers (B,C,W/C) (FIM): 6 1=Demonstrate adherence to instructed precautions during ADL tasks. 2=Patient will verbalize/demonstrate understanding of assistive devices/ modifications for ADL. 3=Patient will improve strength/tolerance for activity to enable patient to perform ADL's. OT Custodial Goals Custodial Goals Time Frame: Jun 04, 2017 Additional Goals: 1-Demonstrate ADL Tasks, 2-Verbalize Understanding 1=Demonstrate adherence to instructed precautions during ADL tasks. 2=Patient will verbalize/demonstrate understanding of assistive devices/ modifications for ADL. 3=Patient will improve strength/tolerance for activity to enable patient to perform ADL's. OT Education/Plan Problem List/Assessment Assessment: No Skilled OT Needs ID'd Discharge Recommendations Plan/Recommendations: Discharge/Goals Met Therapy D/C Recommendations: Home Independently Patient/Family Goals Pt. would like to go home with home health speech therapy. Treatment Plan/Plan of Care Treatment,Training & Education: Yes Treatment Duration: Jun 04, 2017 Frequency: 1 time per week Estimated Hrs Per Day: .5 hour per day Agreement: Yes Rehab Potential: Good Time/GCodes Start Time: 09:00 Stop Time: 09:25 Total Time Billed (hr/min): 25 Billed Treatment Time 1, EVM PT/OT Therapy GCodes Therapy Test(s)/Tool used to determine: Level of Assistance Scale Functional Limitation-Current Modifier: CI Functional Limitation-Goal Modifier: CI HARSHA SORIANO OT Jun 04, 2017 12:49
[2017-06-04 16:30] VITALS: BP 102/58
[2017-06-04 19:50] VITALS: BP 140/59
--- NOTE | 2017-06-04 21:20 | CONSULTATION REPORT ---
DATE OF SERVICE: 06/04/2017 REFERRING PHYSICIAN: Dr. De Anda. The patient is admitted to room 417. IMPRESSION: 1. A 66-year-old female admitted to the hospital with transient ischemic attack like symptoms. 2. Recent diagnosis of a left upper lobe lung mass with left hilar and mediastinal lymphadenopathy, rule out malignancy. 3. History of previous cerebrovascular accident with expressive aphasia. RECOMMENDATIONS: 1. Proceed with pulmonary consultation with Dr. Alcala for bronchoscopy, EBUS and biopsy of the left hilar or mediastinal lymph nodes. 2. Proceed with evaluation of TIA/CVA like symptoms with appropriate management. 3. director agricultural services consult regarding discharge options as patient lives by herself and will not be able to manage. 4. The patient will need a PET CT scan on an outpatient basis in the next week. 5. I will make further recommendations once a pathology report is available and staging PET CT scan is completed. BRIEF HISTORY: The patient is a 66-year-old female who has been having TIA/CVA like symptoms and came to the emergency room. She has previous history of CVA and has expressive aphasia now. She is having difficulty swallowing and complained of her tongue being "thick." She was in the emergency room 2 days prior to the current admission and was noted to have a left upper lobe mass posteriorly which is new, along with a left hilar and mediastinal lymphadenopathy. She was scheduled for a pulmonary evaluation on an outpatient basis for this. Because of her expressive aphasia, the patient could not give any detailed history other than a few words at a time. PAST MEDICAL HISTORY: Significant for a previous CVA in 2000 with residual right sided weakness and slight expressive aphasia. She has history of gastroesophageal reflux disorder and questionable ulcers. History of diabetes mellitus type 2 which is controlled with medications. History of osteoarthritis and carotid surgeries in the past. The patient was unable to give any details on this. SOCIAL HISTORY: The patient is but from her for a long time. She lives alone at [place]. No other close family and no children. The closest relative is a sister who lives in [place]. She has been smoking one pack of cigarettes a day since the age of 13 years. Denied any significant alcohol or other recreational drug use. The patient mentioned that she worked in [place] for approximately 20 years then moved back to [place] several years ago. FAMILY HISTORY: Could not be obtained in detail from the patient. PHYSICAL EXAMINATION TODAY: GENERAL: Showed an elderly female, awake and trying to answer questions but unable to do so because of the expressive aphasia. VITAL SIGNS: Temperature was 97.1, pulse rate of 58, respirations 18, blood pressure 102/58, oxygen saturation of 92% on room air. HEENT: Normocephalic, extraocular muscles intact, conjunctivae pink, obvious right facial droop with partial loss of right nasolabial fold. NECK: Supple with no JVD. No cervical, supraclavicular or axillary lymphadenopathy palpable. CHEST: Symmetrical. LUNGS: With slightly diminished breath sounds bilaterally with a rare scattered wheeze. No rales heard. CARDIOVASCULAR: Exam was regular in rate and rhythm without murmurs or gallops. ABDOMEN: Obese, soft, nontender with no hepatosplenomegaly or other masses palpable. EXTREMITIES: Showed no edema. NEUROLOGIC: Significant for right hemiparesis and right facial palsy. DIAGNOSTIC DATA: CBC done yesterday showed WBC 8.8, hemoglobin 14.4 and platelet count of 283,000 with neutrophil count of 6.8. Chemistry panel showed normal electrolytes. BUN was 12 and creatinine 0.68 with GFR more than 60 mL/minute. Nonfasting glucose was 135. Liver function studies were within normal limits. A CT scan of the chest done on 05/31/2017 showed a mass measuring 4.6 x 4.1 x 3.9 cm in the lateral aspect of left upper lobe. There are minimally prominent lymph nodes in the left hilum and mediastinum. There is another 2.5 cm circular nodule in the left lower lobe, probably related to a hematoma. A 1.2 cm left adrenal nodule which is stable from the previous exam. MRI of the brain done on 05/31/2017 showed a previous left frontal infarct with no acute infarct or enhancing mass noted. Thank you for allowing me to participate in this patient's care. I will follow the patient with you and make appropriate recommendations. Job ID: [id number] DocumentID: [id number] Dictated Date: 06/04/2017 18:03:58 Metal Building Assembler Date: 06/04/2017 21:19:25 Dictated By: CLEMENTINE SPRINGER MD [facility]
[2017-06-05] VITALS (9 sets, daily range): BP systolic 121–175; BP diastolic 56–76
[2017-06-05] MEDS: glipiZIDE 5 MG (GLUCOTROL) TAB PO SCH (05:39)
[2017-06-05] MEDS: RT-ALBUTEROL/IPRATROPIUM 3 ML (DUONEB) VIAL INH SCH ×4 (07:02→19:35)
[2017-06-05 07:35] LABS: CHOLESTEROL 175 MG/DL (< 200); DIRECT LDL 127 MG/DL (1-129); TRIGLYCERIDES 133 MG/DL (<150); VLDL CHOLESTEROL 27 MG/DL (5-40)
[2017-06-05] MEDS: NICOTINE 21 MG (NICODERM) PATCH TD SCH (08:33)
[2017-06-05] MEDS: GABAPENTIN 300 MG (NEURONTIN) CAP PO SCH ×3 (08:33→20:19)
[2017-06-05] MEDS: ASPIRIN 325 MG (5 GR) TABLET PO SCH (08:33)
[2017-06-05] MEDS: ATENOLOL 50 MG (TENORMIN) TAB PO SCH (08:33)
[2017-06-05] MEDS: PATCH REMOVAL TP SCH (08:33)
[2017-06-05] MEDS: PANTOPRAZOLE 40 MG (PROTONIX) TAB PO SCH (08:33)
--- NOTE | 2017-06-05 08:54 | Pulmonary Consultation ---
History of Present Illness History of Present Illness Date of Consultation 06/05/17 08:50 Time Seen by Provider: 08:50 Date of Admission History of Present Illness 66yo presented to ED secondary to dysphagia worsening over last few weeks. Pt was dx with large peripheral lung mass and small mediastinal lymphadenopathy as out patient with CT scan. She has a scheduled appt in my office with me today. I am consulted to pulmonary management. Allergies and Home Medications Allergies Coded Allergies: No Known Drug Allergies (Unverified , 04/17/12) Home Medications Aspirin 325 Mg Tab, 325 MG PO DAILY, (Reported) Atenolol 50 Mg Tablet, 50 MG PO DAILY, (Reported) Atorvastatin Calcium 20 Mg Tablet, 20 MG PO DAILY, (Reported) Gabapentin 400 Mg Capsule, 400 MG PO TID, (Reported) Glipizide 10 Mg Tablet, 10 MG PO DAILY, (Reported) Oxybutynin Chloride 10 Mg Tab.er.24, 10 MG PO DAILY, (Reported) Past Clvobms-Vyupue-Jlixoh Hx Patient Social History Alcohol Use: Denies Use Recreational Drug Use: No Smoking Status: Current Everyday Smoker Type Used: Cigarettes 2nd Hand Smoke Exposure: Yes Recent Foreign Travel: No Contact w/Someone Who Travel: No Recent Infectious Disease Expo: No Recent Hopitalizations: Yes Physical Abuse Screen: No Sexual Abuse: No Immunizations Up To Date Date of Pneumonia Vaccine: Feb 01, 2012 Date of Influenza Vaccine: Aug 12, 2013 Seasonal Allergies Seasonal Allergies: No Surgeries HX Surgeries: Yes (CAROTIDS) Surgeries: Vascular Surgery Respiratory Hx Respiratory Disorders: No Cardiovascular Hx Cardiac Disorders: Yes Cardiac Disorders: Hypertension Neurological Hx Neurological Disorders: Yes (STROKE 01) Neurological Disorders: Stroke Reproductive System Hx Reproductive Disorders: No Sexually Transmitted Disease: No HIV/AIDS: No Female Reproductive Disorders: Denies Genitourinary Hx Genitourinary Disorders: No Gastrointestinal Hx Gastrointestinal Disorders: Yes Gastrointestinal Disorders: Ulcer Musculoskeletal Hx Musculoskeletal Disorders: Yes Musculoskeletal Disorders: Arthritis Endocrine Hx Endocrine Disorders: Yes Endocrine Disorders: Diabetes, Non-Insulin dep HEENT HX ENT Disorders: No Cancer Hx Cancer: Yes Cancer: Skin Psychosocial Hx Psychiatric Problems: No Integumentary HX Skin/Integumentary Disorder: No Blood Transfusions Hx Blood Disorders: No Adverse Reaction to a Blood Tr: No Reviewed Nursing Assessment Reviewed/Agree w Nursing PMH: Yes Family Medical History Significant Family History: No Pertinent Family Hx Exam Exam Vital Signs Date Time Temp Pulse Resp B/P (MAP) Pulse Ox O2 Delivery O2 Flow Rate FiO2 06/05/17 08:00 98.6 71 20 160/73 95 Room Air 06/05/17 07:02 70 93 06/05/17 07:02 93 Room Air 06/05/17 03:54 97.9 62 20 153/69 94 Room Air 06/05/17 01:20 87 20 175/76 94 06/05/17 00:00 97.7 65 20 152/67 93 Room Air 06/04/17 20:00 Room Air 06/04/17 19:50 98.4 56 20 140/59 93 Room Air 06/04/17 18:55 93 Room Air 06/04/17 16:30 97.1 58 18 102/58 92 Room Air 06/04/17 15:12 94 Nasal Cannula 0.50 06/04/17 12:00 98.1 54 20 132/61 95 Nasal Cannula 0.50 06/04/17 10:59 97 Nasal Cannula 0.50 I & O 06/05/17 07:00 Intake Total 1310 ml Output Total 1600 ml Balance -290 ml Capillary Refill: Less Than 3 Seconds Peripheral Pulses: 2+ Dorsalis Pedis (R), 2+ Left Dors-Pedis (L), 2+ Radial Pulses (R), 2+ Radial Pulses (L) Gastrointestinal: normal bowel sounds, non tender, soft, no organomegaly, no pulsatile mass Assessment/Plan Assessment/Plan Left apical lung mass -Will plan on doing bronchoscopy with EBUS as out patient -I discussed with Dr. Robles and he agrees procedure should be done later as out patient secondary to patient having acute stroke like symptoms currently. -I will be out of town for 1 week starting . Will schedule bronchoscopy with EBUS for SunJun 20. Dr. Robles and Dr. De Anda will obtain PET scan after pt is discharged. Acute on chronic stroke like symptoms with dysphasia -Check stat head ct r/o acute change vs mass Tobacco dependance Clinical Quality Measures DVT/VTE Risk/Contraindication: Risk Factor Score Per Nursin RFS Level Per Nursing on Admit: 4+=Very High Stroke: Date of last known well: May 26, 2017 JANIS GUZMAN DO Jun 05, 2017 08:54
--- NOTE | 2017-06-05 10:24 | Physical Therapy Daily Note ---
PT Daily Note-Current Subjective Patient agrees to PT. Worsening dysphagia. Pain Numeric Pain Scale: 0-No Pain Location: No Pain Reported Mental Status Patient Orientation: Normal For Age Transfers Functional [place] Measure 0=Not Assessed/NA 4=Minimal Assistance 1=Total Assistance 5=Supervision or Setup 2=Maximal Assistance 6=Modified [place] 3=Moderate Assistance 7=Complete IndependenceIRFPAI Quality Coding Scale 6 Independent with activity with or without an assistive device 5 Patient requires set up or clean up by helper. Patient completes activity by themselves 4 Supervision or touching assist (CGA). [place] provide cues , steadying assist 3 The helper provides less than half the effort to complete the activity 2 The helper provides more than half the effort to complete the activity 1 Dependent. The helper does all the effort to complete an activity 7 Patient refused to complete or attempt activity 9 The patient did not perform the activity before the current illness or injury 88 Not attempted due to Medical conditions or safety concerns Transfers (B, C, W/C) (FIM): 6 Scootin Sit to/from Stand: 6 Gait Training Gait (FIM): 6 Distance (FIM): 3=150 ft Distance: 300' Gait Level of Assist: 6 Gait Assistive Device: Cane Single Point safe and functional Assessment Current Status: Good Progress Patient's gross motor skills have not been effected at this time. Patient to have head CT secondary to possible brain mets. PT Short Term Goals Short Term Goals Time Frame: Jun 08, 2017 Transfers (B,C,W/C) (FIM): 6 Gait (FIM): 6 Distance (FIM): 3=150 ft Gait Level of Assist: 6 Gait Assistive Device: Cane Single Point PT Plan Treatment/Plan Treatment Plan: Continue Plan of Care Treatment Plan: Education, Functional Activity [place], Functional Strength, Gait , Safety, Therapeutic Exercise, Transfers Treatment Duration: Jun 08, 2017 Frequency: 5 times per week Estimated Hrs Per Day: .25 hour per day Patient and/or Family Agrees t: Yes Time/GCodes Time In: 925 Time Out: 940 Total Billed Treatment Time: 15 Total Billed Treatment 1 visit FA 15 min PT/OT Therapy GCodes Therapy Test(s)/Tool used to determine: Level of Assistance Scale Functional Limitation-Current Modifier: CI Functional Limitation-Goal Modifier: CI MARIANO ONEAL PT Jun 05, 2017 10:24
[2017-06-05] MEDS ORDERED: CATHETER FLUSH 10 ML SYR IV PRN (10:45)
[2017-06-05] MEDS ORDERED: IOHEXOL 350 MG/ML 100 ML (OMNIPAQUE 350) VIAL IV ONE (10:45)
[2017-06-05] MEDS ORDERED: NS 100 ML (IVPB) BAG IV ONE (10:45)
--- NOTE | 2017-06-05 11:42 | Diagnostic Imaging Report ---
CLINICAL INDICATION: Patient with dysphasia. Followup from last week's scan. EXAM: Axial CT scan of the brain performed without and with 80 cc of Omnipaque 350 IV contrast. COMPARISON: Axial CT scan of the brain performed without contrast dated 06/02/2017. FINDINGS: There is no CT evidence of acute cerebral infarct, intracranial hemorrhage, or gross mass effect. There is no abnormal IV contrast enhancement. Stable moderate-sized area of chronic cerebral infarct involving the left frontal lobe and left basal ganglia region with associated encephalomalacia. There is normal heard-white matter distinction. The brain parenchymal volume appears appropriate for patient's age. There is no significant midline shift or herniation. [place] of [place] vessels show no significant abnormality as visualized. Dural venous sinuses are grossly unremarkable as visualized. There is no evidence of hydrocephalus. The basal cisterns are unremarkable. The skull, extracranial soft tissue, and orbits are unremarkable. The paranasal sinuses are unremarkable. IMPRESSION: 1: Stable CT scan of the brain with no evidence of acute intracranial process. 2: Stable chronic cerebral infarct involving the left frontal lobe and left basal ganglia region. 3: The remainder of the brain parenchyma is stable. Dictated by: Dictated on workstation # [id number]
--- NOTE | 2017-06-05 14:36 | Progress Note (SOAP) ---
Subjective Subjective/Events-last exam Complains of numbness and thickened tongue this AM. Overnight told the nurse that she was concerned she had another stroke. Denies any pain, shortness of breath or chest pain. Review of Systems Date Seen by Provider: Jun 05, 2017 Time Seen by Provider: 10:20 Objective Exam Last Set of Vital Signs Vital Signs Date Time Temp Pulse Resp B/P (MAP) Pulse Ox O2 Delivery O2 Flow Rate FiO2 06/05/17 12:00 98.1 57 20 132/64 95 Room Air 06/04/17 15:12 0.50 06/02/17 15:01 21 Capillary Refill : Less Than 3 SecondsLess Than 3 Seconds I&O Intake and Output 06/05/17 00:00 Intake Total 1710 ml Output Total 1950 ml Balance -240 ml Intake Oral 1710 ml Output Urine Total 1950 ml # Bowel Movements 2 General: Alert, Oriented X3, No Acute Distress HEENT: Atraumatic, PERRLA Lungs: Clear to Auscultation, Normal Air Movement Heart: Regular Rate, No Murmurs Abdomen: Normal Bowel Sounds, Soft, No Tenderness, No Hepatosplenomegaly, No Masses Neuro: Normal Gait, Strength at 5/5 X4 Ext, Sensation Intact, Cranial Nerves 3- 12 NL, Other (slowed and slurred speech) Results/Procedures Lab Laboratory Tests 06/05/17 05:37: Glucometer 136H 06/05/17 06:18: Triglycerides Level 133, Cholesterol Level 175, LDL Cholesterol Direct 127, VLDL Cholesterol 27, HDL Cholesterol 36L Microbiology 06/02/17 Urine Culture - Final, Complete Assessment/Plan Assessment/Plan Admission Dx SEE BELOW Plan DYSPHASIA - CT w/o any acute changes, likely 2/2 to mass in chest - She is on a mechanical soft diet and honey thickened liquids for now. - Discussed PEG tube, patient states that she feels she can eat better, may need placement as outpatient - Repeat CT today due to stroke concerns, Consider MRI STROKE SYNDROME WITH RESIDUAL DEFICITS - Stable LEFT APICAL LUNG MASS - Oncology and Pulmonology consults placed - Cari mccauley patient - Will need PET CT next week for staging DIABETES MELLITUS - Diabetic diet - Restart RENAE today - will do finger checks and add insulin if necessary - I am more concerned about hypoglycemic from decreased PO intake than her BS running too high HTN: elevated this AM - restart home meds CHRONIC PAIN: Stable today ELEVATED D-DIMER - expected given her disease state - do not anticipate infection but malignancy - no si/sx of DVT/PE TOBACCO USE - Discussed the importance of cessation DVT PROPH: SCDs, Lovenox 40 daily Dispo: Continue admission Diagnosis/Problems: Clinical Quality Measures DVT/VTE Risk/Contraindication: Risk Factor Score Per Nursin RFS Level Per Nursing on Admit: 4+=Very High Stroke: Date of last known well: May 26, 2017 JUAN SOLARES MD Jun 05, 2017 14:36
[2017-06-05] MEDS ORDERED: diphenhydrAMINE 25 MG TAB (BENADRYL) PO PRN (21:30)
[2017-06-06 03:42] VITALS: BP 116/55
[2017-06-06] MEDS: glipiZIDE 5 MG (GLUCOTROL) TAB PO SCH (05:55)
[2017-06-06] MEDS: RT-ALBUTEROL/IPRATROPIUM 3 ML (DUONEB) VIAL INH SCH ×2 (06:45→10:36)
[2017-06-06 08:00] VITALS: BP 123/58
[2017-06-06] MEDS: GABAPENTIN 300 MG (NEURONTIN) CAP PO SCH (08:23)
[2017-06-06] MEDS: NICOTINE 21 MG (NICODERM) PATCH TD SCH (08:23)
[2017-06-06] MEDS: PANTOPRAZOLE 40 MG (PROTONIX) TAB PO SCH (08:23)
[2017-06-06] MEDS: ATENOLOL 50 MG (TENORMIN) TAB PO SCH (08:23)
[2017-06-06] MEDS: ASPIRIN 325 MG (5 GR) TABLET PO SCH (08:23)
[2017-06-06] MEDS: PATCH REMOVAL TP SCH (08:23)
--- NOTE | 2017-06-06 08:28 | Pulmonary Progress Note ---
Subjective Time Seen by Provider: 08:28 Subjective/Events-last exam PT feels improved c/w yesterday. Exam Exam Vital Signs Date Time Temp Pulse Resp B/P (MAP) Pulse Ox O2 Delivery O2 Flow Rate FiO2 06/06/17 06:45 94 Room Air 06/06/17 03:42 98.7 65 20 116/55 94 Room Air 06/05/17 23:30 98.9 63 22 121/56 92 Room Air 06/05/17 19:45 97.8 68 18 128/63 93 Room Air 06/05/17 19:41 Room Air 06/05/17 19:36 90 Room Air 06/05/17 15:52 93 Room Air 06/05/17 15:30 98.0 55 20 145/63 95 Room Air 06/05/17 12:00 98.1 57 20 132/64 95 Room Air 06/05/17 10:35 93 Room Air 06/05/17 08:35 Room Air General Appearance: No Apparent Distress, WD/WN, Anxious Respiratory: Chest Non Tender, Lungs Clear, Normal Breath Sounds, No Accessory Muscle Use, No Respiratory Distress Cardiovascular: Regular Rate, Rhythm, No Edema, No Gallop Capillary Refill: Less Than 3 Seconds Peripheral Pulses: 2+ Dorsalis Pedis (R), 2+ Left Dors-Pedis (L), 2+ Radial Pulses (R), 2+ Radial Pulses (L) Gastrointestinal: normal bowel sounds, non tender, soft, no organomegaly, no pulsatile mass Neurologic/Psychiatric: Alert, Aphasia (improved ), Facial Droop Skin: Normal Color, Warm/Dry Lymphatic: No Adenopathy Assessment/Plan Assessment/Plan Left apical lung mass -Will plan on doing bronchoscopy with EBUS as out patient -I discussed with Dr. Robles and he agrees procedure should be done later as out patient secondary to patient having acute stroke like symptoms currently. -I will be out of town for 1 week starting . Will schedule bronchoscopy with EBUS for SunJun 20. Dr. Robles and Dr. De Anda will obtain PET scan after pt is discharged. Acute on chronic stroke like symptoms with dysphasia -Check stat head ct r/o acute change vs mass Tobacco dependance Discussed with Dr. De Anda regarding plan of care. 232 Clinical Quality Measures DVT/VTE Risk/Contraindication: Risk Factor Score Per Nursin RFS Level Per Nursing on Admit: 4+=Very High Stroke: Date of last known well: May 26, 2017 JANIS GUZMAN DO Jun 06, 2017 08:28
--- NOTE | 2017-06-06 10:20 | Physical Therapy Daily Note ---
PT Daily Note-Current Subjective Pt sitting in recliner upon arrival. Pt was just finishing visit with and was told discharge today. Pt agreed to visit with PT. Pain Numeric Pain Scale: 0-No Pain Location: No Pain Reported Mental Status Patient Orientation: Person, Place, [place] Transfers Functional [place] Measure 0=Not Assessed/NA 4=Minimal Assistance 1=Total Assistance 5=Supervision or Setup 2=Maximal Assistance 6=Modified [place] 3=Moderate Assistance 7=Complete IndependenceIRFPAI Quality Coding Scale 6 Independent with activity with or without an assistive device 5 Patient requires set up or clean up by helper. Patient completes activity by themselves 4 Supervision or touching assist (CGA). [place] provide cues , steadying assist 3 The helper provides less than half the effort to complete the activity 2 The helper provides more than half the effort to complete the activity 1 Dependent. The helper does all the effort to complete an activity 7 Patient refused to complete or attempt activity 9 The patient did not perform the activity before the current illness or injury 88 Not attempted due to Medical conditions or safety concerns Treatments Pt visited with PT about discharge and what equipment pt might need both in bathroom and for day to day activities. Pt to receive OT & ST per . Pt has grab bars, strategic advisor, high rise toilet & shower chair. PT doesn't feel that shower bench is necessary for getting into tub. Pt had just walked with Aide so declined ambulation at this time. Pt resting in recliner with all needs met at end of tx. Assessment Current Status: Fair Progress Pt continues to slur speech during tx. Pt feels excited and confident about going home. PT Short Term Goals Short Term Goals Time Frame: Jun 08, 2017 Transfers (B,C,W/C) (FIM): 6 Gait (FIM): 6 Distance (FIM): 3=150 ft Gait Level of Assist: 6 Gait Assistive Device: Cane Single Point PT Plan Treatment/Plan Treatment Plan: Continue Plan of Care Treatment Plan: Education, Functional Activity [place], Functional Strength, Gait , Safety, Therapeutic Exercise, Transfers Treatment Duration: Jun 08, 2017 Frequency: 5 times per week Estimated Hrs Per Day: .25 hour per day Patient and/or Family Agrees t: Yes Safety Risks/Education Patient Education: Reviewed Precautions, Correct Positioning, Safety Issues Teaching Recipient: Patient Teaching Methods: Discussion Response to Teaching: Verbalize Understanding Time/GCodes Time In: 1000 Time Out: 1015 Total Billed Treatment Time: 15 Total Billed Treatment visit, FA (15m) PT/OT Therapy GCodes Therapy Test(s)/Tool used to determine: Level of Assistance Scale Functional Limitation-Current Modifier: DOROTHY Functional Limitation-Goal Modifier: JAIRO LAWSON BATTERY ASSEMBLER Jun 06, 2017 10:20
--- NOTE | 2017-06-06 10:29 | Discharge Summary ---
Diagnosis/Chief Complaint Date of Admission Jun 02, 2017 at 12:50 Date of Discharge 06/06/2017 Admission Diagnosis Admission Diagnosis Dysphagia TIA Left Apical Lung mass with Brain mets NIDDM HTN Chronic Pain Tobacco use Discharge Diagnosis See Above Chief Complaint/HPI Chief Complaint/HPI 66yo woman presented to ER with complaints of dysphagia. Has been worsening over the past few weeks. Was found to have metastatic cancer which is thought to be a lung primary. She was seen in ER on and preferred not to stay , so outpatient follow up was arranged. She did follow up with her PCP on Sunday morning, and arrangements were made to see Dr Alcala and oncology. She presented to ER on Sunday with worsening dysphagia, and she is barely able to get any fluids down without choking and coughing. She was unable to pass her dysphagia screen in ER and so was admitted for observatino to include a swallow study and possible rehab. Pt has a history of strokes, but she states taht the difficulty swallowing did not occur acutely and has been wrosening over time. Discharge Summary-Simple/Stand Consultations Dr Alcala: Pulmonology Dr Robles: Oncology Discharge Physical Examination Allergies: Coded Allergies: No Known Drug Allergies (Unverified , 04/17/12) Vitals & I&Os Vital Sign - Last 12Hours Date Time Temp Pulse Resp B/P (MAP) Pulse Ox O2 Delivery O2 Flow Rate FiO2 06/06/17 08:10 Room Air 06/06/17 08:00 97.9 68 24 123/58 94 06/04/17 15:12 0.50 06/02/17 15:01 21 General Appearance: Alert, Oriented X3, Cooperative, No Acute Distress HEENT: Atraumatic, PERRLA Respiratory: Clear to Auscultation, Normal Air Movement Cardiovascular: Regular Rate, No Murmurs Abdominal: Normal Bowel Sounds, Soft, No Tenderness, No Hepatosplenomegaly, No Masses Extremities: No Clubbing, No Edema Skin: Other (Erythematous rash on arms and chest) Neuro: Normal Gait, Strength at 5/5 X4 Ext, Sensation Intact, Cranial Nerves 3- 12 NL, Other (dysphagia and dysarthria) Hospital Course See final discharge diagnosis. Discussion & Recommendations 66 yo F that presented to ER with worsening dysphagia and dysarthria Dysphagia and Dysarthria: Normal Head CT scans x2 while admitted. Concerning for TIA as it waxes and wanes. Much improved on day of discharge. Ordered HH for patient for speech, OT, and PT. Left Apical Lung Mass with Brain mets: Patient needs scheduled for outpatient PET scan on Sunday. Plan to see Dr Alcala on Jun 20 to schedule bronchoscopy with bx. Will follow up with Dr Robles after results are obtained. Concerning for lung cancer. Patient has been smoking at least 1 ppd since she was 12. NIDDM: Restart home meds. PCP will follow. HTN: Controlled during admission. Continue home meds. Tobacco Use: Patient states that she is not ready to quit smoking. She wants to be states that it will be on her own time. Discharge Condition at discharge Stable Instructions to patient/family Please see electonic discharge instructions given to patient. Discharge Medications Reviewed and agree with Discharge Medication list on patient's Discharge Instruction sheet Clinical Quality Measures DVT/VTE Risk/Contraindication: Risk Factor Score Per Nursin RFS Level Per Nursing on Admit: 4+=Very High Stroke: Date of last known well: May 26, 2017 Copy Copies To 1: Lala AQUINO HOLLY R MD Jun 06, 2017 10:29
--- NOTE | 2017-06-06 10:29 | D/C HH Face to Face Order ---
D/C Face to Face Orders Instructions for Patient Patient Instructions/FollowUp: You have a follow up appointment with Llaa Joseph on Jun 12 @ 2pm You will have an appointment with Dr Alcala on Jun 20 We are going to call you will your appointment to get your PET scan done for next SundayJun 12 Physician to follow Patient: Neetu Discharge Diet for Home: Regular Diet Patient Problems: Dysphagia and Dysarthria Left Apical Lung mass with Brain Mets TIA HTN NIDDM Tobaccoism Goals for Patient: - Improved speech - Improved strength on RUE - Work on clearing secretions with swallow Patient Data-Allergies,Ht & Wt Patient Allergies: Coded Allergies: No Known Drug Allergies (Unverified , 04/17/12) Height (Feet): 5 Height (Inches): 4.00 Weight (Pounds): 200 Weight (Ounces): 5.0 Home Health Need/Face to Face Date of Face to Face: Jun 06, 2017 Clinical Findings: Muscle weakness (RUE), Other-list in note (Dysphagia and Dysarthria) I have seen Pt [id number]: Yes Discharged To: Home Diagnosis/Conditions: Dysphagia and Dysarthria Left Apical Lung mass with Brain Mets TIA with h/o CVA HTN NIDDM Tobaccoism Problems/Diagnosis/Condition: Patient is Homebound due to: Neli fall risk due to instabilty, Muscle weakness Homebound Status Due to the above stated illness, injury or surgical procedure (medical condition or diagnosis) and associated clinical findings, the patient is homebound because of his/her inability to leave home except with aid of a supportive device and/or person AND leaving the home requires a considerable and taxing effort or is medically contraindicated. Pt req the following assistanc: Aid of another person Home Health Nursing Orders Home Health Services Order: Building Services Coordinator-Evaluate & Treat, Physical Therapy-Evaluate & Treat, Speech Language-Evaluate & Treat Home Health Infusion Therapy Site Location: Forearm Therapy Orders Therapy Orders: Physical Therapy, PT to assess for OT, Speech Language Pathology Therapy Specific Orders: Teach enviro modifications/safety, Eval & treat dysphagia, Increase strength/endurance Certify Stmt I certify that this patient is under my care and that I, a nurse practitioner or a physician; a children's nursery assistant working with me, had a face to face encounter that - meets the physician face to face encounter requirements with this patient as dated. JUAN SOLARES MD Jun 06, 2017 10:29
--- NOTE | 2017-06-07 14:48 | Speech Therapy Progress Note ---
Therapy Progress Note This clinician was contacted by home health physical therapist, Francisca, with a questions regarding the patient's diet consistency. Per report and evaluation on 05/25/2017, the patient was placed on a regular diet with thin liquids. The patient's family reported the patient has experienced increased drooling since discharge, as well as, oral pocketing. Upon evaluation, the patient reported drooling to this clinician. The clinician deferred recommendations regarding increased saliva production to the patient's primary team, however, recommended the patient complete dry swallows more frequently to clear the secretions from the oral cavity. The clinician continues to defer recommendations of increased saliva production to the primary team. The patient's family stated the patient does "cough" but it is not in relation to eating or drinking. If the patient or patient's family has concerns of progressing dysphagia, the clinician recommended a home health speech pathology assessment and/or a modified barium swallow referral. Pending repeat swallowing evaluation, the clinician recommended a pureed diet (to reduce oral pocketing and mastication effort), as well as, reduced bolus size of thin liquids (teaspoon size, only/no straws). The physical therapist was encouraged to follow up with the clinician with any additional questions or concerns. ALLISON ZENDEJAS Jun 07, 2017 14:48
== END 2017-06-06 10:19 | disposition home health service (06) ==
LOC: EDUNIT# 09:03 → ER 09:05 → UNDOADMOB 11:32 → 4TH 11:32
PROVIDERS: ADMIT Pediatrics; ATTEND Pediatrics
DX: R13.10 Dysphagia, unspecified (principal); G45.9 Transient cerebral ischemic attack, unspecified; R91.8 Other nonspecific abnormal finding of lung field; C79.31 Secondary malignant neoplasm of brain; R59.0 Localized enlarged lymph nodes; I69.920 Aphasia following unspecified cerebrovascular disease; I69.951 Hemiplegia and hemiparesis following unspecified cerebrovascular disease affecting right dominant side; I51.7 Cardiomegaly; I10 Essential (primary) hypertension; E11.9 Type 2 diabetes mellitus without complications; M79.662 Pain in left lower leg; G89.29 Other chronic pain; K21.9 Gastro-esophageal reflux disease without esophagitis; F17.210 Nicotine dependence, cigarettes, uncomplicated; Z79.82 Long term (current) use of aspirin; Z79.84 Long term (current) use of oral hypoglycemic drugs; Z79.899 Other long term (current) drug therapy
CPT/HCPCS: 36415; 70450; 70470; 71010; 80053; 80061; 81000; 82962; 84484; 85025; 85379; 85610; 85730; 87088; 93005; 93041; 94640; 94760; 96360; G0378

== ENCOUNTER 2017-06-08 10:23 | Emergency (ER) | payer MEDICARE ==
[~2017-06-08] VITALS: Ht 152.4 cm; Wt 89.8 kg
[~2017-06-08 10:23] MED LIST changes: +ATOR20TA66 PO; +GABA-490 PO; +OXYB10TA PO
[2017-06-08 10:56] LABS: BASOPHILS % (AUTO) 0 % (0-10); EOSINOPHILS # (AUTO) 0.4 10^3/uL (0.0-0.3); EOSINOPHILS % (AUTO) 5 % (0-10); LYMPHOCYTES % (AUTO) 11 % (12-44); MEAN CORPUSCULAR HEMOGLOBIN 30 PG (25-34); MEAN CORPUSCULAR HGB CONC 32 G/DL (32-36); MEAN CORPUSCULAR VOLUME 94 FL (80-99); MEAN PLATELET VOLUME 9.6 FL (7.4-10.4); MONOCYTES # (AUTO) 0.5 X 10^3 (0.0-1.0); MONOCYTES % (AUTO) 5 % (0-12); NEUTROPHILS # (AUTO) 7.6 X 10^3 (1.8-7.8); NEUTROPHILS % (AUTO) 79 % (42-75); PLATELET COUNT 360 10^3/uL (130-400); RED BLOOD COUNT 4.98 10^6/uL (4.35-5.85); RED CELL DISTRIBUTION WIDTH 14.6 % (10.0-14.5); WHITE BLOOD COUNT 9.6 10^3/uL (4.3-11.0)
[2017-06-08 11:25] LABS: ALANINE AMINOTRANSFERASE 10 U/L (0-55); ALBUMIN 3.7 GM/DL (3.2-4.5); ANION GAP 12 MMOL/L (5-14); ASPARTATE AMINO TRANSFERASE 11 U/L (5-34); BILIRUBIN,TOTAL 0.7 MG/DL (0.1-1.0); BLOOD UREA NITROGEN 18 MG/DL (7-18); BUN/CREATININE RATIO 22; CALCIUM 10.2 MG/DL (8.5-10.1); CARBON DIOXIDE 28 MMOL/L (21-32); CHLORIDE 99 MMOL/L (98-107); CREATINE KINASE 54 U/L (29-168); CREATININE SERUM 0.81 MG/DL (0.60-1.30); GFR ESTIMATED > 60; GLUCOSE 136 MG/DL (70-105); POTASSIUM 3.8 MMOL/L (3.6-5.0); SODIUM 139 MMOL/L (135-145); TOTAL PROTEIN 7.7 GM/DL (6.4-8.2)
[2017-06-08 11:31] LABS: TROPONIN I < 0.30 NG/ML (<0.30)
--- NOTE | 2017-06-08 11:46 | Diagnostic Imaging Report ---
INDICATION: Shortness of breath. PA and lateral chest. There is a 4.2 cm round mass in the left apex, a 2.2 cm round mass at the left lung base. These were present on prior study from 06/02/2017 and unchanged. Lungs are otherwise clear. There are no effusions or pneumothoraces. IMPRESSION: Stable chest with two round masses in the left lung. Dictated by: Dictated on workstation # [id number]
--- NOTE | 2017-06-08 12:13 | ED Respiratory ---
General Chief Complaint: Respiratory Problems Stated Complaint: SOA Nursing Triage Note: PT CO OF SOA, PT HAS DIFF W TALKING, L SIDE OF MOUTH DRAWN UP, HAS TROUBLE DRINKING, PT SOA WAS RELEASED FROM HOSP 3 DAYS AGO, HAS LUNG TUMOR PRESSING ON NERVES. PT HAS RASH ALL OVER BODY, STATES IS ALLERGIC TO ASA AND IBUPROFEN Source: other (NEXT DOOR NEIGHBOR DOES ALL TALKING FOR PT) History of Present Illness Time seen by provider: 10:42 Initial Comments PT ARRIVES VIA POV FROM HOME C/O SHORTNESS OF BREATH SINCE THIS AM--STATES SHE SLEPT GOOD LAST PM WAS ADMITTED 06/02-06/06 FOR DYSPHAGIA/DYSPHASIA AND RIGHT FACIAL DROP AND HAS BEEN DX WITH LUNG TUMORS PRESSING ON NERVES IN HER NECK /THROAT NO CHEST PAIN NO FEVER NO COUGH NO SWELLING IN LEGS/ FEET OR PAIN IN CALVES PT HAS AN INHALER BUT HAS NOT USED IT. DOES NOT HAVE HOME O2 OR NEBULIZER. PT STATES HER BREATHING WAS ALOT BETTER WITH NEB TREATMENTS WHILE IN HOSPITAL. PT HAD HAD A RASH ALL OVER BODY--WAS FELT TO BE AN ALLERGIC REACTION TO IBUPROFEN AND/ OR ASPIRIN--STATES RASH IS GETTING BETTER PT TOOK AN ASPIRIN THIS AM PCP: [facility] Allergies and Home Medications Allergies Coded Allergies: No Known Drug Allergies (Unverified , 04/17/12) Home Medications Albuterol Sulfate 2.5 Mg/3 Ml Vial.neb, 2.5 MG IH Q4H, #1 Prescribed by: YELITZA JIMÉNEZ on 06/08/17 1214 Aspirin 325 Mg Tab, 325 MG PO DAILY, (Reported) Atenolol 50 Mg Tablet, 50 MG PO DAILY, (Reported) Atorvastatin Calcium 20 Mg Tablet, 20 MG PO DAILY, (Reported) Gabapentin 400 Mg Capsule, 400 MG PO TID, (Reported) Glipizide 10 Mg Tablet, 10 MG PO DAILY, (Reported) Oxybutynin Chloride 10 Mg Tab.er.24, 10 MG PO DAILY, (Reported) Constitutional: No chills, No diaphoresis, No fever EENTM: see HPI Respiratory: see HPI, No cough, short of breath Cardiovascular: no symptoms reported, No chest pain, No edema, No palpitations Gastrointestinal: no symptoms reported Genitourinary: no symptoms reported Musculoskeletal: no symptoms reported Skin: no symptoms reported Psychiatric/Neurological: See HPI, Pre-Existing Deficit Hematologic/Lymphatic: No Symptoms Reported Immunological/Allergic: no symptoms reported Past Zzhyowy-Ikdpjl-Fyrcsw Hx Patient Social History Alcohol Use: Denies Use Recreational Drug Use: No Smoking Status: Current Everyday Smoker Type Used: Cigarettes 2nd Hand Smoke Exposure: Yes Recent Foreign Travel: No Contact w/Someone Who Travel: No Recent Infectious Disease Expo: No Recent Hopitalizations: Yes (06/02/17 FOR DYSPAGIA/DYSPHASIA/RIGHT FACIAL DROOP ) Immunizations Up To Date Tetanus Booster (TDap): Unknown Date of Pneumonia Vaccine: Feb 01, 2012 Date of Influenza Vaccine: Aug 12, 2013 Seasonal Allergies Seasonal Allergies: No Surgeries HX Surgeries: Yes (CAROTIDS) Surgeries: Vascular Surgery Respiratory Hx Respiratory Disorders: No Cardiovascular Hx Cardiac Disorders: Yes Cardiac Disorders: High Cholesterol, Hypertension Neurological Hx Neurological Disorders: Yes (STROKE 01) Neurological Disorders: Stroke Reproductive System Hx Reproductive Disorders: No Sexually Transmitted Disease: No HIV/AIDS: No Female Reproductive Disorders: Denies Genitourinary Hx Genitourinary Disorders: No Gastrointestinal Hx Gastrointestinal Disorders: Yes Gastrointestinal Disorders: Ulcer Musculoskeletal Hx Musculoskeletal Disorders: Yes Musculoskeletal Disorders: Arthritis Endocrine Hx Endocrine Disorders: Yes Endocrine Disorders: Diabetes, Non-Insulin dep HEENT HX ENT Disorders: No Cancer Hx Cancer: Yes Cancer: Lung Psychosocial Hx Psychiatric Problems: No Integumentary HX Skin/Integumentary Disorder: No Blood Transfusions Hx Blood Disorders: No Adverse Reaction to a Blood Tr: No Physical Exam Vital Signs Vital Sign - Last 12Hours 06/08/17 10:25 Temp 98.0 Pulse 59 Resp 18 B/P (MAP) 148/72 Pulse Ox 92 O2 Delivery Nasal Cannula O2 Flow Rate 2.00 FiO2 92 Capillary Refill : Less Than 3 Seconds General Appearance: WD/WN, no apparent distress, other HEENT: other (RIGHT FACIAL DROOP) Neck: non-tender Respiratory: no respiratory distress, no accessory muscle use, decreased breath sounds (IN BASES BILATERALLY), No rales, No rhonchi, No wheezing Cardiovascular: regular rate, rhythm, no JVD, no murmur Gastrointestinal: normal bowel sounds, non tender, soft Extremities: pedal edema (TRACE BILATERALLY) Neurologic/Psychiatric: alert, normal mood/affect, facial droop (RIGHT ), other (DYSARTHRIA) Skin: normal color, warm/dry Progress/Results/Core Measures Results/Orders Lab Results Laboratory Tests Test 06/08/17 10:36 Range/Units White Blood Count 9.6 4.3-11.0 10^3/uL Red Blood Count 4.98 4.35-5.85 10^6/uL Hemoglobin 15.1 11.5-16.0 G/DL Hematocrit 47 35-52 % Mean Corpuscular Volume 94 80-99 FL Mean Corpuscular Hemoglobin 30 25-34 PG Mean Corpuscular Hemoglobin Concent 32 32-36 G/DL Red Cell Distribution Width 14.6 H 10.0-14.5 % Platelet Count 360 130-400 10^3/uL Mean Platelet Volume 9.6 7.4-10.4 FL Neutrophils (%) (Auto) 79 H 42-75 % Lymphocytes (%) (Auto) 11 L 12-44 % Monocytes (%) (Auto) 5 0-12 % Eosinophils (%) (Auto) 5 0-10 % Basophils (%) (Auto) 0 0-10 % Neutrophils # (Auto) 7.6 1.8-7.8 X 10^3 Lymphocytes # (Auto) 1.0 1.0-4.0 X 10^3 Monocytes # (Auto) 0.5 0.0-1.0 X 10^3 Eosinophils # (Auto) 0.4 H 0.0-0.3 10^3/uL Basophils # (Auto) 0.0 0.0-0.1 10^3/uL Sodium Level 139 135-145 MMOL/L Potassium Level 3.8 3.6-5.0 MMOL/L Chloride Level 99 98-107 MMOL/L Carbon Dioxide Level 28 21-32 MMOL/L Anion Gap 12 5-14 MMOL/L Blood Urea Nitrogen 18 7-18 MG/DL Creatinine 0.81 0.60-1.30 MG/DL Estimat Glomerular Filtration Rate > 60 BUN/Creatinine Ratio 22 Glucose Level 136 H 70-105 MG/DL Calcium Level 10.2 H 8.5-10.1 MG/DL Magnesium Level 2.0 1.8-2.4 MG/DL Total Bilirubin 0.7 0.1-1.0 MG/DL Aspartate Amino Transf (AST/SGOT) 11 5-34 U/L Alanine Aminotransferase (ALT/SGPT) 10 0-55 U/L Alkaline Phosphatase 67 40-136 U/L Total Creatine Kinase 54 29-168 U/L Creatine Kinase MB 1.7 <6.6 NG/ML Troponin I < 0.30 <0.30 NG/ML B-Type Natriuretic Peptide 129.5 H <100.0 PG/ML Total Protein 7.7 6.4-8.2 GM/DL Albumin 3.7 3.2-4.5 GM/DL My Orders Orders - YELITZA JIMÉNEZ DO Saline Lock/Iv-Start (06/08/17 10:50) Ekg Tracing (06/08/17 10:50) O2 (06/08/17 10:50) Monitor-Rhythm Ecg Trace Only (06/08/17 10:50) BNP (06/08/17 10:50) Cbc With Automated Diff (06/08/17 10:50) Comprehensive Metabolic Panel (06/08/17 10:50) Creatine Kinase (06/08/17 10:50) Creatine Kinase Mb (06/08/17 10:50) Magnesium (06/08/17 10:50) Troponin I (06/08/17 10:50) Chest Pa/Lat (2 View) (06/08/17 10:50) Vital Signs/I&O Vital Sign - Last 12Hours 06/08/17 06/08/17 06/08/17 10:25 10:25 12:21 Temp 98.0 Pulse 59 51 Resp 18 18 B/P (MAP) 148/72 Pulse Ox 92 92 100 O2 Delivery Nasal Cannula O2 Flow Rate 2.00 FiO2 92 Blood Pressure Mean: 97 Progress Note : Progress Note O2 SATS 90-92% ON ROOM AIR ON ARRIVAL--UP WITH O2 --STATES SHE FEELS MUCH BETTER NO DETERIORATION IN PT'S CONDITION DURING ER STAY Diagnostic Imaging Comments CXR--STABLE, NO ACUTE PROCESS, PER RADIOLOGIST REPORT @ 1149 Reviewed: Reviewed by Me Departure Communication Progress Notes 1150--SPOKE WITH DR. SOLARES, PT DOES NOT MEET ADMIT CRITERIA, AND CANNOT QUALIFY PT FOR HOME O2 THROUGH THE ER. SHE STATES THAT PT IS TO GO DIRECTLY TO [facility] AFTER DISMISSAL FROM ER, AND THEY WILL DO AMBULATORY O2 SATS AND CAN ARRANGE FOR HOME O2 IF PT QUALIFIES. PT IS COMFORTABLE WITH THIS PLAN Impression Impression: Primary Impression: COPD (chronic obstructive pulmonary disease) Additional Impressions: LUNG MASSES Dyspnea Disposition: HOME, SELF-CARE Condition: Improved Departure-Patient Inst. Referrals: [facility] (PCP/Family) Primary Care Physician Patient Instructions: COPD Including Emphysema (DC) Add. Discharge Instructions: TAKE ALL YOUR MEDICATIONS PRESCRIBED GO DIRECTLY TO [facility] [place] AMBULATING OXYGEN LEVELS TESTED FOLLOW UP WITH THEM FOR FURTHER CARE All discharge instructions reviewed with patient and/or family. Voiced understanding. Scripts Albuterol Sulfate (Albuterol Sulfate) 2.5 Mg/3 Ml Vial.neb 2.5 MG IH Q4H, #1 EA Prov: YELITZA JIMÉNEZ DO 06/08/17 YELITZA JIMÉNEZ DO Jun 08, 2017 12:13
[2017-06-08] MEDS ORDERED: ALBU2.5V4 IH (12:14)
[2017-06-08 12:21] VITALS: BP 147/71
== END 2017-06-08 12:25 | disposition home or self-care (01) ==
LOC: EDUNIT# 10:23 → ER 10:26
DX: J44.9 Chronic obstructive pulmonary disease, unspecified (principal); R91.8 Other nonspecific abnormal finding of lung field; I10 Essential (primary) hypertension; M19.90 Unspecified osteoarthritis, unspecified site; E11.9 Type 2 diabetes mellitus without complications; F17.210 Nicotine dependence, cigarettes, uncomplicated; Z79.82 Long term (current) use of aspirin; Z79.84 Long term (current) use of oral hypoglycemic drugs; Z85.828 Personal history of other malignant neoplasm of skin; Z86.73 Personal history of transient ischemic attack (TIA), and cerebral infarction without residual deficits; Z87.19 Personal history of other diseases of the digestive system
CPT/HCPCS: 36415; 71020; 80053; 82550; 82553; 83735; 83880; 84484; 85025; 93005; 93041

== ENCOUNTER 2017-06-19 15:35 | Inpatient (IN) | payer MEDICARE ==
[~2017-06-19] VITALS: Ht 162.6 cm; Wt 93.1 kg
[2017-06-19] MEDS ORDERED: VANCOMYCIN INJECTION 1,000 MG in NS (IVPB) 250 ML IV ONE (15:45)
[2017-06-19] MEDS ORDERED: PIPERACILLIN SODIUM/TAZOBACTAM 4.5 GM in NS (IVPB) 100 ML IV ONE (15:45)
[2017-06-19] MEDS ORDERED: PHARMACY TO DOSE IV SCH (15:45)
[2017-06-19] MEDS ORDERED: ACETAMINOPHEN 325 MG TABLET/CAPLET (TYLENOL) PO PRN (15:45)
[2017-06-19 16:10] VITALS: BP 161/66
[2017-06-19] MEDS ORDERED: PIPERACILLIN/TAZOBACTAM 4.5 GM/NS 100 ML IV NR ×2 (16:30)
[2017-06-19] MEDS ORDERED: NS IV 1000 ML 1,000 ML IV SCH (16:30)
[2017-06-19] MEDS ORDERED: CATHETER FLUSH 10 ML SYR IV PRN (16:30)
--- NOTE | 2017-06-19 16:31 | Pulmonary Consultation ---
History of Present Illness History of Present Illness Date of Consultation 06/19/17 16:19 Time Seen by Provider: 15:00 (in office ) Date of Admission 06/19/2017 History of Present Illness 66 yo female who was seen in our office today in regards to a recent hospitalization for poss CVA and testing showed a lung mass. Pt presented in pulmonary office for follow up and is reporting decrease in appetite, weak, malaise, fatigue, and it was discovered that she had a fever of 103.[address] Alcala spoke with Dr. Luciano w/[facility] as she reports being a pt of Dr. Joseph. Dr. Luciano has agreed to admission and Dr. Alcala is placing admission orders to room # 421. Patient and family agreeable. Will hold off on previously scheduled bronch w/EBUS. Dr. Wilson was notified of need to delay testing. Pt had her PET scan today. Allergies and Home Medications Allergies Coded Allergies: No Known Drug Allergies (Unverified , 04/17/12) Home Medications Albuterol Sulfate 2.5 Mg/3 Ml Vial.neb, 2.5 MG IH Q4H, #1 Prescribed by: YELITZA JIMÉNEZ on 06/08/17 1214 Aspirin 325 Mg Tab, 325 MG PO DAILY, (Reported) Atenolol 50 Mg Tablet, 50 MG PO DAILY, (Reported) Atorvastatin Calcium 20 Mg Tablet, 20 MG PO DAILY, (Reported) Gabapentin 400 Mg Capsule, 400 MG PO TID, (Reported) Glipizide 10 Mg Tablet, 10 MG PO DAILY, (Reported) Oxybutynin Chloride 10 Mg Tab.er.24, 10 MG PO DAILY, (Reported) Past Xvivtab-Pdkxjn-Mrhngs Hx Patient Social History Type Used: Cigarettes 2nd Hand Smoke Exposure: Yes Recent Foreign Travel: No Contact w/Someone Who Travel: No Recent Hopitalizations: Yes (06/02/17 FOR DYSPAGIA/DYSPHASIA/RIGHT FACIAL DROOP ) Immunizations Up To Date Tetanus Booster (TDap): Unknown Date of Pneumonia Vaccine: Feb 01, 2012 Date of Influenza Vaccine: Aug 12, 2013 Seasonal Allergies Seasonal Allergies: No Surgeries History of Surgeries: Yes (CAROTIDS) Surgeries: Vascular Surgery Respiratory History of Respiratory Disorde: No Currently Using CPAP: No Currently Using BIPAP: No Cardiovascular History of Cardiac Disorders: Yes Cardiac Disorders: High Cholesterol, Hypertension Neurological History of Neurological Disord: Yes (past hx) Neurological Disorders: Stroke Reproductive System Hx Reproductive Disorders: No Sexually Transmitted Disease: No HIV/AIDS: No Female Reproductive Disorders: Denies Genitourinary History of Genitourinary Disor: No Gastrointestinal History of Gastrointestinal Di: No Gastrointestinal Disorders: Ulcer Musculoskeletal History of Musculoskeletal Dis: Yes Musculoskeletal Disorders: Arthritis Endocrine History of Endocrine Disorders: Yes Endocrine Disorders: Diabetes, Non-Insulin dep HEENT History of HEENT Disorders: No Cancer History of Cancer: Yes Cancer: Lung Psychosocial History of Psychiatric Problem: No Integumentary History of Skin or Integumenta: No Blood Transfusions History of Blood Disorders: No Adverse Reaction to a Blood Tr: No Review of Systems Date Seen by Provider: Jun 19, 2017 Time Seen by Provider: 15:00 Constitutional: Fever, Chills, Weakness, Malaise Eyes: No: Pain, Vision change, Conjunctivae inflammation, Eyelid inflammation, Other, Redness ENT: No: Ear pain, Ear discharge, Nose pain, Nose discharge, Nose congestion, Mouth pain, Mouth swelling, Throat pain, Throat swelling, Other Respiratory: Cough, Dry, Shortness of breath, SOB with excertion Cardiovascular: No: Chest Pain, Palpitations, Orthopnea, Paroxysmal Noc. Dyspnea, Edema, Lt Headedness, Other Gastrointestinal: No: Nausea, Vomiting, Abdominal Pain, Diarrhea, Constipation , Melena, Hematochezia, Other Genitourinary: No Dysuria, No Frequency, No Incontinence, No Hematuria, No Retention, No Other Musculoskeletal: No: other, neck pain, shoulder pain, arm pain, back pain, hand pain, leg pain, foot pain Skin: No: Rash, Lesions, Jaundice, Bruising, Other Neurological: Weakness Exam Exam General Appearance: No Apparent Distress, WD/WN, Obese HEENT: PERRL/EOMI, Normal ENT Inspection Neck: Full Range of Motion, Normal Inspection, Non Tender, Supple Respiratory: Chest Non Tender, Lungs Clear, Normal Breath Sounds, No Accessory Muscle Use, No Respiratory Distress, Decreased Breath Sounds, Other Cardiovascular: Regular Rate, Rhythm Gastrointestinal: normal bowel sounds, non tender, soft Extremity: Normal Capillary Refill, Normal Inspection, No Calf Tenderness Neurologic/Psychiatric: Alert, Oriented x3, No Motor/Sensory Deficits, Normal Mood/Affect, frame builder II-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 Alcala went over test results, assessed patient and developed treatment plan in office and STRATEGIC DEBRIEFING OFFICER charted only. VKITORIA VALENCIA APRN Jun 19, 2017 16:31
[2017-06-19 16:55] LABS: BASOPHILS % (AUTO) 0 % (0-10); EOSINOPHILS % (AUTO) 0 % (0-10); LYMPHOCYTES # (AUTO) 0.5 X 10^3 (1.0-4.0); LYMPHOCYTES % (AUTO) 3 % (12-44); MEAN CORPUSCULAR HEMOGLOBIN 30 PG (25-34); MEAN CORPUSCULAR HGB CONC 33 G/DL (32-36); MEAN CORPUSCULAR VOLUME 91 FL (80-99); MEAN PLATELET VOLUME 10.1 FL (7.4-10.4); MONOCYTES # (AUTO) 1.5 X 10^3 (0.0-1.0); MONOCYTES % (AUTO) 8 % (0-12); NEUTROPHILS # (AUTO) 17.1 X 10^3 (1.8-7.8); NEUTROPHILS % (AUTO) 89 % (42-75); PLATELET COUNT 391 10^3/uL (130-400); RED BLOOD COUNT 4.71 10^6/uL (4.35-5.85); RED CELL DISTRIBUTION WIDTH 15.1 % (10.0-14.5); WHITE BLOOD COUNT 19.2 10^3/uL (4.3-11.0)
[2017-06-19] MEDS ORDERED: ALBU2.5V4 IH (16:56)
[2017-06-19] MEDS ORDERED: VANCOMYCIN 1500 MG/NS 500 ML IVPB IV NR ×2 (17:00)
[2017-06-19 17:27] LABS: LYMPHOCYTES % (MANUAL) 2 %; NEUTROPHILS % (MANUAL) 88 %; REACTIVE LYMPHOCYTES 1 %
--- NOTE | 2017-06-19 17:45 | Diagnostic Imaging Report ---
INDICATION: Pneumonia. TECHNIQUE: PA and lateral views of the chest are obtained. COMPARISON: Comparison is made to study of 06/08/2017. FINDINGS: Similar to the previous study, there are dominant masses projecting over the left upper lobe and likely within the left lower lobe. There has been development of extensive airspace disease in the right midlung. No pneumothorax is identified. There is no significant pleural fluid. IMPRESSION: Dominant masses in the left lung are redemonstrated however there has been development of infiltrate in the right midlung, likely due to pneumonia. Dictated by: Dictated on workstation # [id number]
[2017-06-19 17:47] LABS: ALANINE AMINOTRANSFERASE 21 U/L (0-55); ALBUMIN 3.2 GM/DL (3.2-4.5); ANION GAP 8 MMOL/L (5-14); ASPARTATE AMINO TRANSFERASE 25 U/L (5-34); BILIRUBIN,TOTAL 0.8 MG/DL (0.1-1.0); BLOOD UREA NITROGEN 11 MG/DL (7-18); BUN/CREATININE RATIO 14; CALCIUM 9.8 MG/DL (8.5-10.1); CARBON DIOXIDE 29 MMOL/L (21-32); CHLORIDE 95 MMOL/L (98-107); CREATININE SERUM 0.79 MG/DL (0.60-1.30); GFR ESTIMATED > 60; GLUCOSE 178 MG/DL (70-105); POTASSIUM 4.2 MMOL/L (3.6-5.0); SODIUM 132 MMOL/L (135-145); TOTAL PROTEIN 7.4 GM/DL (6.4-8.2)
[2017-06-19] MEDS: RT-ALBUTEROL/IPRATROPIUM 3 ML (DUONEB) VIAL INH SCH ×2 (18:32→22:30)
[2017-06-19 18:55] LABS: BILIRUBIN,URINE NEGATIVE (NEGATIVE); KETONES,URINE NEGATIVE (NEGATIVE); LEUKOCYTE ESTERASE ,URINE 1+ (NEGATIVE); NITRITE,URINE NEGATIVE (NEGATIVE); PH,URINE 5 (5-9); PROTEIN,URINE 3+ (NEGATIVE); UROBILINOGEN,URINE 4 MG/DL (NORMAL)
[2017-06-19 19:02] VITALS: BP 114/56
[2017-06-19 19:06] LABS: WBC,URINE RARE /HPF
[2017-06-19] MEDS: MICONAZOLE 2% POWDER (DESENEX AF) 90 GM TOP SCH (20:13)
[2017-06-19] MEDS: NS IV 1000 ML 1,000 ML IV SCH (20:13)
[2017-06-19] MEDS: PIPERACILLIN/TAZOBACTAM 4.5 GM/NS 100 ML IVPB IV SCH ×2 (21:59)
[2017-06-19] MEDS: ACETAMINOPHEN 500 MG TAB (TYLENOL) PO PRN (23:05)
[2017-06-20 00:10] VITALS: BP 95/57
[2017-06-20] MEDS: RT-ALBUTEROL/IPRATROPIUM 3 ML (DUONEB) VIAL INH SCH ×6 (02:20→22:51)
[2017-06-20] MEDS: NS IV 1000 ML 1,000 ML IV SCH ×3 (03:19→19:50)
[2017-06-20 04:05] VITALS: BP 120/72
[2017-06-20] MEDS: VANCOMYCIN 1250 MG/NS 250 ML IVPB IV SCH ×4 (05:03→18:51)
[2017-06-20] MEDS: PIPERACILLIN/TAZOBACTAM 4.5 GM/NS 100 ML IVPB IV SCH ×6 (06:34→21:43)
[2017-06-20 08:00] VITALS: BP 125/71
[2017-06-20] MEDS: MICONAZOLE 2% POWDER (DESENEX AF) 90 GM TOP SCH ×2 (09:05→21:43)
[2017-06-20] MEDS ORDERED: FAMOTIDINE 20 MG (PEPCID) TABLET PO PRN (09:15)
--- NOTE | 2017-06-20 09:15 | Pulmonary Progress Note ---
Subjective Time Seen by Provider: 09:11 Subjective/Events-last exam No complications noted. Exam Exam Vital Signs Date Time Temp Pulse Resp B/P (MAP) Pulse Ox O2 Delivery O2 Flow Rate FiO2 06/20/17 06:52 92 Nasal Cannula 2.00 06/20/17 04:05 98.4 86 20 120/72 95 Nasal Cannula 1.50 06/20/17 02:20 95 Nasal Cannula 2.00 06/20/17 01:00 64 06/20/17 00:47 100.0 06/20/17 00:46 100.0 06/20/17 00:10 102.1 96 18 95/57 92 Nasal Cannula 1.50 06/19/17 23:05 101.5 06/19/17 22:30 95 Nasal Cannula 2.00 06/19/17 22:04 99.5 06/19/17 20:05 92 Nasal Cannula 1.50 06/19/17 19:02 101.4 84 20 114/56 97 Room Air 06/19/17 19:00 84 06/19/17 18:32 94 Nasal Cannula 2.00 06/19/17 16:36 94 Nasal Cannula 2.00 06/19/17 16:10 102.7 92 20 161/66 92 Room Air General Appearance: No Apparent Distress, WD/WN, Obese HEENT: PERRL/EOMI, Normal ENT Inspection Neck: Full Range of Motion, Normal Inspection, Non Tender, Supple Respiratory: Chest Non Tender, Lungs Clear, Normal Breath Sounds, No Accessory Muscle Use, No Respiratory Distress, Decreased Breath Sounds, Other Cardiovascular: Regular Rate, Rhythm Gastrointestinal: normal bowel sounds, non tender, soft Extremity: Normal Capillary Refill, Normal Inspection, No Calf Tenderness Neurologic/Psychiatric: Alert, Oriented x3, No Motor/Sensory Deficits, Normal 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
--- NOTE | 2017-06-20 09:41 | History & Physicial (CHS) ---
HPI History of Present Illness: 66 yo admitted to hospital from Pulm clinic after being unable to walk yesterday due to weakness and noted to have fever of 103 in clinic, concern for pneumonia. She today admits epigastric pain and cough. She denies mucous or hemoptysis. She does use oxygen at night already. She states her pain is improved with belching. Date seen by provider: Jun 20, 2017 Time Seen by Provider: 09:30 Attending Physician Zuly Luciano MD PCP Lala Joseph APRN Consult Date of Admission Jun 19, 2017 at 3:57 pm Home Medications Home Medications Reviewed patient Home Medication Reconciliation Form Allergies Coded Allergies: aspirin (Verified Allergy, Intermediate, 06/19/17) HEAD TO TOE RASH/HIVES ibuprofen (Verified Allergy, Intermediate, 06/19/17) HEAD TO TOE RASH/HIVES Tetanus Vaccines and Toxoid (Verified Allergy, Unknown, 06/19/17) NME-Lnwlfn-Iivhbz Hx Patient Social History Alcohol Use: Denies Use Recreational Drug Use: No Smoking Status: Current Everyday Smoker Type Used: Cigarettes 2nd Hand Smoke Exposure: Yes Recent Foreign Travel: No Contact w/other who traveled: No Recent Hopitalizations: Yes (06/02/17 FOR DYSPAGIA/DYSPHASIA/RIGHT FACIAL DROOP ) Recent Infectious Disease Expo: No Physical Abuse Screen: No Sexual Abuse: No Immunizations Up To Date Tetanus Booster (TDap): Unknown Date of Pneumonia Vaccine: Feb 01, 2012 Date of Influenza Vaccine: Aug 12, 2013 Past Medical History PMHx: DMII with peripheral neuropathy HTN HLD H/O CVA COPD SurgHx: [place] teeth extraction Family Medical History Significant Family History: Heart Disease Review of Systems ([facility]) Constitutional: fever EENTM: no symptoms reported Respiratory: cough, short of breath Gastrointestinal: No constipation, No diarrhea Genitourinary: No decreased output Musculoskeletal: other (neuropathy) Psychiatric/Neurological: No Symptoms Reported Reviewed Test Results Reviewed Test Results Lab Laboratory Tests Test 06/19/17 16:45 06/19/17 17:20 06/19/17 18:29 06/19/17 18:45 Range/Units White Blood Count 19.2 H 4.3-11.0 10^3/uL Red Blood Count 4.71 4.35-5.85 10^6/uL Hemoglobin 14.3 11.5-16.0 G/DL Hematocrit 43 35-52 % Mean Corpuscular Volume 91 80-99 FL Mean Corpuscular Hemoglobin 30 25-34 PG Mean Corpuscular Hemoglobin Concent 33 32-36 G/DL Red Cell Distribution Width 15.1 H 10.0-14.5 % Platelet Count 391 130-400 10^3/uL Mean Platelet Volume 10.1 7.4-10.4 FL Neutrophils (%) (Auto) 89 H 42-75 % Lymphocytes (%) (Auto) 3 L 12-44 % Monocytes (%) (Auto) 8 0-12 % Eosinophils (%) (Auto) 0 0-10 % Basophils (%) (Auto) 0 0-10 % Neutrophils # (Auto) 17.1 H 1.8-7.8 X 10^3 Lymphocytes # (Auto) 0.5 L 1.0-4.0 X 10^3 Monocytes # (Auto) 1.5 H 0.0-1.0 X 10^3 Eosinophils # (Auto) 0.0 0.0-0.3 10^3/uL Basophils # (Auto) 0.0 0.0-0.1 10^3/uL Neutrophils % (Manual) 88 % Lymphocytes % (Manual) 2 % Monocytes % (Manual) 9 % Reactive Lymphocytes 1 % Blood Morphology Comment NORMAL Lactic Acid Level 2.12 *H 1.32 0.50-2.00 MMOL/L Sodium Level 132 L 135-145 MMOL/L Potassium Level 4.2 3.6-5.0 MMOL/L Chloride Level 95 L 98-107 MMOL/L Carbon Dioxide Level 29 21-32 MMOL/L Anion Gap 8 5-14 MMOL/L Blood Urea Nitrogen 11 7-18 MG/DL Creatinine 0.79 0.60-1.30 MG/DL Estimat Glomerular Filtration Rate > 60 BUN/Creatinine Ratio 14 Glucose Level 178 H 70-105 MG/DL Calcium Level 9.8 8.5-10.1 MG/DL Total Bilirubin 0.8 0.1-1.0 MG/DL Aspartate Amino Transf (AST/SGOT) 25 5-34 U/L Alanine Aminotransferase (ALT/SGPT) 21 0-55 U/L Alkaline Phosphatase 88 40-136 U/L Total Protein 7.4 6.4-8.2 GM/DL Albumin 3.2 3.2-4.5 GM/DL Urine Color ELIZABETH H Urine Clarity SLIGHTLY CLOUDY Urine pH 5 5-9 Urine Specific [place] 1.025 H 1.016-1.022 Urine Protein 3+ H NEGATIVE Urine Glucose (UA) NEGATIVE NEGATIVE Urine Ketones NEGATIVE NEGATIVE Urine Nitrite NEGATIVE NEGATIVE Urine Bilirubin NEGATIVE NEGATIVE Urine Urobilinogen 4 H NORMAL MG/DL Urine Leukocyte Esterase 1+ H NEGATIVE Urine RBC (Auto) 2+ H NEGATIVE Urine RBC NONE /HPF Urine WBC RARE /HPF Urine Squamous Epithelial Cells 10-25 H /HPF Urine Crystals NONE /LPF Urine Amorphous Sediment FEW ISABEL URATES H /LPF Urine Bacteria NEGATIVE /HPF Urine Casts PRESENT /LPF Urine Granular Casts 2-5 H /LPF Urine Coarse Granular Casts 0-2 H /LPF Urine Mucus NEGATIVE /LPF Urine Culture Indicated NO Radiology CXR 06/19: IMPRESSION: Dominant masses in the left lung are redemonstrated however there has been development of infiltrate in the right midlung, likely due to pneumonia. Physical Exam-([facility]) Physical Exam Vital Signs VS - Last 72 Hours, by Label 06/19/17 06/19/17 06/19/17 06/19/17 16:10 16:36 18:32 19:00 Temp 102.7 Pulse 92 84 Resp 20 B/P (MAP) 161/66 Pulse Ox 92 94 94 O2 Delivery Room Air Nasal Cannula Nasal Cannula O2 Flow Rate 2.00 2.00 06/19/17 06/19/17 06/19/17 06/19/17 19:02 20:05 22:04 22:30 Temp 101.4 99.5 Pulse 84 Resp 20 B/P (MAP) 114/56 Pulse Ox 97 92 95 O2 Delivery Room Air Nasal Cannula Nasal Cannula O2 Flow Rate 1.50 2.00 06/19/17 06/20/17 06/20/17 06/20/17 23:05 00:10 00:46 01:00 Temp 101.5 102.1 100.0 Pulse 96 64 Resp 18 B/P (MAP) 95/57 Pulse Ox 92 O2 Delivery Nasal Cannula O2 Flow Rate 1.50 06/20/17 06/20/17 06/20/17 06/20/17 02:20 04:05 06:52 08:00 Temp 98.4 99.6 Pulse 86 102 Resp 20 20 B/P (MAP) 120/72 125/71 Pulse Ox 95 95 92 94 O2 Delivery Nasal Cannula Nasal Cannula Nasal Cannula Nasal Cannula O2 Flow Rate 2.00 1.50 2.00 1.50 06/20/17 06/20/17 06/20/17 06/20/17 08:00 10:39 12:00 14:42 Temp 99.9 Pulse 94 Resp 22 B/P (MAP) 153/60 Pulse Ox 92 90 93 93 O2 Delivery Nasal Cannula Nasal Cannula Nasal Cannula Nasal Cannula O2 Flow Rate 1.50 2.00 1.50 2.00 06/20/17 06/20/17 06/20/17 06/20/17 16:00 17:16 18:00 18:54 Temp 101.0 101.0 99.1 99.0 Pulse 104 Resp 20 B/P (MAP) 140/60 Pulse Ox 94 O2 Delivery Nasal Cannula O2 Flow Rate 1.50 06/20/17 19:25 Pulse Ox 94 O2 Delivery Nasal Cannula O2 Flow Rate 2.00 Capillary Refill : General Appearance: WD/WN, no apparent distress Respiratory: decreased breath sounds, rhonchi Cardiovascular: regular rate, rhythm, no edema, no murmur Extremities: no pedal edema Neurologic/Psychiatric: normal mood/affect, sensory deficit (fingertips and dorsal feet) Skin: normal color, warm/dry, other (facial erythema) 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 HLD HTN COPD Plan Sepsis secondary to pneumonia- on admission febrile and with leukocytosis, CXR with middle lobe infiltrate Vancomycin/zosyn, IVF, sputum and blood cultures Lung mass- plan for continued work-up outpatient H/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- repeated imaging last hospital visit within last couple of weeks showed no new infarct or mass, but has recurrent intermittent speech and swallow issues, is seeing outpatient DMII with peripheral neuropathy- resume home medications and sliding scale insulin, diabetic diet HLD- resume home statin HTN- continue home atenolol COPD- RT, duonebs q4 DVT ppx- enoxaparin Diagnosis/Problems: Clinical Quality Measures DVT/VTE Risk/Contraindication: Risk Factor Score Per Nursin RFS Level Per Nursing on Admit: 4+=Very High Copy Copies To 1: CHILO Martinez BETHANY N MD Jun 20, 2017 09:41
[2017-06-20 11:10] LABS: BASOPHILS % (AUTO) 0 % (0-10); EOSINOPHILS % (AUTO) 0 % (0-10); LYMPHOCYTES # (AUTO) 0.4 X 10^3 (1.0-4.0); LYMPHOCYTES % (AUTO) 3 % (12-44); MEAN CORPUSCULAR HEMOGLOBIN 30 PG (25-34); MEAN CORPUSCULAR HGB CONC 32 G/DL (32-36); MEAN CORPUSCULAR VOLUME 93 FL (80-99); MEAN PLATELET VOLUME 9.4 FL (7.4-10.4); MONOCYTES # (AUTO) 0.8 X 10^3 (0.0-1.0); MONOCYTES % (AUTO) 5 % (0-12); NEUTROPHILS # (AUTO) 16.2 X 10^3 (1.8-7.8); NEUTROPHILS % (AUTO) 93 % (42-75); PLATELET COUNT 271 10^3/uL (130-400); RED BLOOD COUNT 4.27 10^6/uL (4.35-5.85); RED CELL DISTRIBUTION WIDTH 14.9 % (10.0-14.5); WHITE BLOOD COUNT 17.5 10^3/uL (4.3-11.0)
[2017-06-20 11:28] LABS: ANION GAP 12 MMOL/L (5-14); BLOOD UREA NITROGEN 11 MG/DL (7-18); BUN/CREATININE RATIO 15; CALCIUM 9.2 MG/DL (8.5-10.1); CARBON DIOXIDE 23 MMOL/L (21-32); CHLORIDE 98 MMOL/L (98-107); CREATININE SERUM 0.75 MG/DL (0.60-1.30); GFR ESTIMATED > 60; GLUCOSE 169 MG/DL (70-105); POTASSIUM 3.9 MMOL/L (3.6-5.0); SODIUM 133 MMOL/L (135-145)
[2017-06-20 12:00] VITALS: BP 153/60
[2017-06-20] MEDS: ENOXAPARIN 40 MG/0.4 ML (LOVENOX) SYR SC SCH (12:24)
[2017-06-20 16:00] VITALS: BP 140/60
[2017-06-20] MEDS ORDERED: TROUGH ORDER-PHARMACY XX NR (17:00)
[2017-06-20] MEDS: ACETAMINOPHEN 500 MG TAB (TYLENOL) PO PRN (17:16)
[2017-06-20 20:00] VITALS: BP 106/54
[2017-06-20] MEDS: GABAPENTIN 400 MG (NEURONTIN) CAP PO SCH (21:43)
[2017-06-21] VITALS (20 sets, daily range): BP systolic 83–127; BP diastolic 53–87
[2017-06-21] MEDS: RT-ALBUTEROL/IPRATROPIUM 3 ML (DUONEB) VIAL INH SCH ×6 (02:00→22:26)
[2017-06-21] MEDS ORDERED: ONDANSETRON 4 MG/2 ML (SDV) Z0FRAN IVP PRN (02:15)
[2017-06-21] MEDS ORDERED: ENOXAPARIN 80 MG/0.8 ML (LOVENOX) SYR SC ONE (02:15)
[2017-06-21] MEDS ORDERED: DILTIAZEM 25 MG/5 ML INJ (CARDIZEM) VIAL IVP ONE (02:15)
[2017-06-21] MEDS ORDERED: NS (IVPB) 0 ML ONE (02:24)
[2017-06-21] MEDS ORDERED: NS (IVPB) 100 ML ONE (02:30)
[2017-06-21] MEDS: DILTIAZEM DRIP 100 MG in SODIUM CHLORIDE (ADD-VANTAGE) 100 ML IV SCH ×3 (02:45→19:35)
[2017-06-21] MEDS: NS IV 1000 ML 1,000 ML IV SCH ×4 (03:45→23:49)
[2017-06-21] MEDS: ACETAMINOPHEN 500 MG TAB (TYLENOL) PO PRN (04:46)
[2017-06-21] MEDS: VANCOMYCIN 1250 MG/NS 250 ML IVPB IV SCH ×4 (05:24→18:12)
[2017-06-21 05:41] LABS: BASOPHILS % (AUTO) 0 % (0-10); EOSINOPHILS % (AUTO) 0 % (0-10); LYMPHOCYTES # (AUTO) 0.5 X 10^3 (1.0-4.0); LYMPHOCYTES % (AUTO) 3 % (12-44); MEAN CORPUSCULAR HEMOGLOBIN 30 PG (25-34); MEAN CORPUSCULAR HGB CONC 33 G/DL (32-36); MEAN CORPUSCULAR VOLUME 93 FL (80-99); MEAN PLATELET VOLUME 9.6 FL (7.4-10.4); MONOCYTES % (AUTO) 7 % (0-12); NEUTROPHILS # (AUTO) 12.9 X 10^3 (1.8-7.8); NEUTROPHILS % (AUTO) 90 % (42-75); PLATELET COUNT 274 10^3/uL (130-400); RED BLOOD COUNT 4.18 10^6/uL (4.35-5.85); RED CELL DISTRIBUTION WIDTH 14.9 % (10.0-14.5); WHITE BLOOD COUNT 14.3 10^3/uL (4.3-11.0)
[2017-06-21 05:57] LABS: ANION GAP 10 MMOL/L (5-14); BLOOD UREA NITROGEN 8 MG/DL (7-18); BUN/CREATININE RATIO 12; CALCIUM 9.1 MG/DL (8.5-10.1); CARBON DIOXIDE 25 MMOL/L (21-32); CHLORIDE 100 MMOL/L (98-107); CREATININE SERUM 0.66 MG/DL (0.60-1.30); GFR ESTIMATED > 60; GLUCOSE 127 MG/DL (70-105); MAGNESIUM 1.4 MG/DL (1.8-2.4); POTASSIUM 3.5 MMOL/L (3.6-5.0); SODIUM 135 MMOL/L (135-145)
[2017-06-21] MEDS ORDERED: glipiZIDE 5 MG (GLUCOTROL) TAB PO SCH (06:30)
[2017-06-21] MEDS ORDERED: meTOprolol 5 MG/5 ML (LOPRESSOR) VIAL IV ONE (06:30)
--- NOTE | 2017-06-21 06:56 | Diagnostic Imaging Report ---
Clinical indication: Patient with history of pneumonia. Exam: Portable chest x-ray upright view. Comparison: Chest x-ray dated 06/19/2017. Findings: There is interval increased consolidation in the right upper lobe. There is interval increased size of the small area of consolidation in the left upper lobe. There is increased patchy groundglass opacification involving both lung acosta. Cardiac silhouette is mildly enlarged. There is no significant pulmonary vascular congestion. There is no pleural effusion or pneumothorax. The remainder of this exam shows no significant interval change compared to the prior study of comparison. Impression: 1.: Interval progression of bilateral lung pneumonia with increased consolidation in the right upper lobe, left upper lobe, and increased opacification of both lung bases. 2: There is mild cardiomegaly with no significant pulmonary vascular congestion. Dictated by: Dictated on workstation # [id number]
[2017-06-21] MEDS: PIPERACILLIN/TAZOBACTAM 4.5 GM/NS 100 ML IVPB IV SCH ×6 (07:06→22:13)
--- NOTE | 2017-06-21 08:17 | Pulmonary Progress Note ---
Subjective Time Seen by Provider: 08:15 Subjective/Events-last exam Pt transferred to ICU last night secondary to Afib RVR Exam Exam Vital Signs Date Time Temp Pulse Resp B/P (MAP) Pulse Ox O2 Delivery O2 Flow Rate FiO2 06/21/17 06:49 98 Nasal Cannula 2.00 06/21/17 06:00 120 16 103/60 92 Nasal Cannula 2.00 06/21/17 05:16 101.4 06/21/17 05:00 147 20 91/53 93 Nasal Cannula 2.00 06/21/17 04:46 101.3 06/21/17 04:00 Nasal Cannula 2.00 06/21/17 04:00 134 11 98/78 92 Nasal Cannula 2.00 06/21/17 04:00 101.3 Nasal Cannula 2.00 06/21/17 03:00 138 9 121/80 95 Nasal Cannula 2.00 06/21/17 02:45 138 28 100/55 95 2.00 06/21/17 02:00 141 12 120/87 90 Nasal Cannula 2.00 06/21/17 02:00 Nasal Cannula 2.00 06/21/17 01:22 100.0 158 22 109/65 93 Nasal Cannula 2.00 06/21/17 01:00 127 06/20/17 22:51 94 Nasal Cannula 2.00 06/20/17 20:00 97.5 92 20 106/54 93 Nasal Cannula 1.50 06/20/17 20:00 Nasal Cannula 2.00 06/20/17 19:25 94 Nasal Cannula 2.00 06/20/17 19:00 83 06/20/17 18:00 99.1 06/20/17 17:16 101.0 06/20/17 16:00 101.0 104 20 140/60 94 Nasal Cannula 1.50 06/20/17 14:42 93 Nasal Cannula 2.00 06/20/17 12:00 99.9 94 22 153/60 93 Nasal Cannula 1.50 06/20/17 10:39 90 Nasal Cannula 2.00 I & O 06/22/17 07:00 Intake Total 258 ml Balance 258 ml General Appearance: No Apparent Distress, WD/WN, Obese HEENT: PERRL/EOMI, Normal ENT Inspection Neck: Full Range of Motion, Normal Inspection, Non Tender, Supple Respiratory: Chest Non Tender, Lungs Clear, Normal Breath Sounds, No Accessory Muscle Use, No Respiratory Distress, Decreased Breath Sounds, Other Cardiovascular: Regular Rate, Rhythm Gastrointestinal: normal bowel sounds, non tender, soft Extremity: Normal Capillary Refill, Normal Inspection, No Calf Tenderness Neurologic/Psychiatric: Alert, Oriented x3, No Motor/Sensory Deficits, Normal 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
[2017-06-21] MEDS: GABAPENTIN 400 MG (NEURONTIN) CAP PO SCH ×3 (08:47→20:22)
[2017-06-21] MEDS: ENOXAPARIN 40 MG/0.4 ML (LOVENOX) SYR SC SCH (08:47)
[2017-06-21] MEDS: MICONAZOLE 2% POWDER (DESENEX AF) 90 GM TOP SCH ×2 (08:48→20:22)
[2017-06-21] MEDS: OXYBUTYNIN (DITROPAN) 5 MG TAB PO SCH ×2 (08:49→20:22)
[2017-06-21] MEDS ORDERED: NON-FORMULARY MEDICATION 1 EA EA (Oxybutynin Chloride (Oxybutynin Chloride ER) 10 MG) PO SCH (09:00)
[2017-06-21] MEDS ORDERED: NON-FORMULARY MEDICATION 1 EA EA (Glipizide 10 MG) PO SCH (09:00)
[2017-06-21] MEDS ORDERED: ATENOLOL 50 MG (TENORMIN) TAB PO SCH (09:00)
[2017-06-21] MEDS ORDERED: ATORVASTATIN 20 MG (LIPITOR) TABLET PO SCH (09:00)
--- NOTE | 2017-06-21 10:44 | Progress Note (SOAP) ---
Subjective Subjective/Events-last exam Febrile, vomited and had tachycardia, found to be in atrial fibrillation with RVR. She is essentially asymptomatic, however. Transferred to ICU for cardizem drip. Review of Systems Date Seen by Provider: Jun 21, 2017 Time Seen by Provider: 09:45 Objective Exam Last Set of Vital Signs Vital Signs Date Time Temp Pulse Resp B/P (MAP) Pulse Ox O2 Delivery O2 Flow Rate FiO2 06/21/17 10:23 96 Nasal Cannula 2.00 06/21/17 07:00 135 06/21/17 06:00 16 103/60 06/21/17 05:16 101.4 Capillary Refill : I&O Intake and Output 06/22/17 00:00 Intake Total 358 ml Balance 358 ml Intake Oral 100 ml IV Total 258 ml # Voids 2 General: Alert, No Acute Distress Lungs: Other (ronchi, decreased air movement) Heart: Other (tachycardic, irregular) Neuro: Normal Speech Results/Procedures Lab Laboratory Tests 06/20/17 11:03: White Blood Count 17.5H, Red Blood Count 4.27L, Hemoglobin 12.8, Hematocrit 40, Mean Corpuscular Volume 93, Mean Corpuscular Hemoglobin 30, Mean Corpuscular Hemoglobin Concent 32, Red Cell Distribution Width 14.9H, Platelet Count 271, Mean Platelet Volume 9.4, Neutrophils (%) (Auto) 93H, Lymphocytes (%) (Auto) 3L , Monocytes (%) (Auto) 5, Eosinophils (%) (Auto) 0, Basophils (%) (Auto) 0, Neutrophils # (Auto) 16.2H, Lymphocytes # (Auto) 0.4L, Monocytes # (Auto) 0.8, Eosinophils # (Auto) 0.0, Basophils # (Auto) 0.0, Sodium Level 133L, Potassium Level 3.9, Chloride Level 98, Carbon Dioxide Level 23, Anion Gap 12, Blood Urea Nitrogen 11, Creatinine 0.75, Estimat Glomerular Filtration Rate > 60, BUN/ Creatinine Ratio 15, Glucose Level 169H, Calcium Level 9.2 06/20/17 18:15: Vancomycin Level Trough 13.1 06/21/17 05:16: White Blood Count 14.3H, Red Blood Count 4.18L, Hemoglobin 12.6, Hematocrit 39, Mean Corpuscular Volume 93, Mean Corpuscular Hemoglobin 30, Mean Corpuscular Hemoglobin Concent 33, Red Cell Distribution Width 14.9H, Platelet Count 274, Mean Platelet Volume 9.6, Neutrophils (%) (Auto) 90H, Lymphocytes (%) (Auto) 3L , Monocytes (%) (Auto) 7, Eosinophils (%) (Auto) 0, Basophils (%) (Auto) 0, Neutrophils # (Auto) 12.9H, Lymphocytes # (Auto) 0.5L, Monocytes # (Auto) 1.0, Eosinophils # (Auto) 0.0, Basophils # (Auto) 0.0, Sodium Level 135, Potassium Level 3.5L, Chloride Level 100, Carbon Dioxide Level 25, Anion Gap 10, Blood Urea Nitrogen 8, Creatinine 0.66, Estimat Glomerular Filtration Rate > 60, BUN/ Creatinine Ratio 12, Glucose Level 127H, Calcium Level 9.1, Phosphorus Level 2.0L, Magnesium Level 1.4L Microbiology 06/19/17 Blood Culture - Preliminary, Resulted No growth Radiology CXR 06/19: IMPRESSION: Dominant masses in the left lung are redemonstrated however there has been development of infiltrate in the right midlung, likely due to pneumonia. 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 HLD HTN COPD Plan Sepsis secondary to pneumonia- on admission febrile and with leukocytosis, CXR with middle lobe infiltrate Vancomycin/zosyn, IVF, sputum and blood cultures Atrial fibrillation with RVR- likely secondary to lung pathology, Cardiology consulted, appreciate assistance -Transferred to ICU 06/21 early am and started on cardizem drip and enoxaparin treatment dose, heart rate remains elevated with borderline low blood pressure Lung mass- plan for continued work-up outpatient H/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- repeated imaging last hospital visit within last couple of weeks showed no new infarct or mass, but has recurrent intermittent speech and swallow issues, is seeing outpatient DMII with peripheral neuropathy- resume home medications and sliding scale insulin, diabetic diet HLD- resume home statin HTN- continue home atenolol COPD- RT, duonebs q4 DVT ppx- enoxaparin Diagnosis/Problems: Clinical Quality Measures DVT/VTE Risk/Contraindication: Risk Factor Score Per Nursin RFS Level Per Nursing on Admit: 4+=Very High MC VILLEGAS MD Jun 21, 2017 10:44
[2017-06-21] MEDS ORDERED: NS IV 1000 ML 1,000 ML IV SCH (11:45)
[2017-06-21] MEDS ORDERED: meTOprolol 5 MG/5 ML (LOPRESSOR) VIAL IV NR (11:45)
--- NOTE | 2017-06-21 11:48 | Consultation-Cardiology ---
HPI-Cardiology Cardiology Consultation: Date of Consultation 06/21/17 Date of Admission Attending Physician Zuly Luciano MD Admitting Physician Bnia Rizo DO Consulting Physician Fahad GLORIA MD HPI: Time Seen by Provider: 09:00 Chief Complaint: Cough and fever This is a 66-year-old lady with history of active smoking and COPD. She was recently found to have a lung mass. She presented to the hospital for a PET scan but was found to have fever and admitted. She also had cough and shortness of breath but denied any other symptoms. It is unclear what the source of sepsis is, however pneumonia is the most likely possibility. She is on broad-spectrum antibiotics. Yesterday evening she became tachycardic and was found to be in atrial fibrillation with rapid ventricular rate. She was transferred to the ICU for continuous Cardizem infusion. She denies any bleeding. She also denies any previous cardiac or vascular history. His history of diabetes and hypertension. She also had a stroke over 10 years ago. Review of Systems-Cardiology Review of Systems Constitutional: fever Eyes: No As described under HPI, No no symptoms reported, No blindness, No blurred vision, No contact lenses, No drainage, No decreased acuity, No foreign body sensation, No glasses, No inflammation, No pain, No photophobia, No previous injury, No shadows, No tunnel vision, No other, No vision change Ears/Nose/Throat: No As described under HPI, No no symptoms reported, No chronic hearing loss, No epistaxis, No ear discharge, No ear pain, No loose teeth, No mouth pain, No mouth swelling, No nasal drainage, No nose pain, No recent hearing loss, No throat pain, No throat swelling, No ulcerations, No other Respiratory: cough, shortness of breath Cardiovascular: No no symptoms reported, No As described under HPI, No chest pain, No edema, No irregular heart rate, No lightheadedness, No palpitations, No syncope, No other Gastrointestinal: No no symptoms reported, No As described under HPI, No abdomen distended, No abdominal pain, No blood streaked bowels, No constipation , No diarrhea, No difficulty swallowing, No nausea, No poor appetite, No poor fluid intake, No rectal bleeding, No vomiting, No other, No nausea/vomiting/ diarrhea, No stool coloration changes Genitourinary: No no symptoms reported, No As described under HPI, No burning, No dysuria, No discharge, No frequency, No flank pain, No hematuria, No incontinence, No pain, No urgency, No other, No urine frequency changes, No urine coloration changes Musculoskeletal: No no symptoms reported, No As describe under HPI, No back pain, No gout, No joint pain, No joint swelling, No muscle pain, No muscle stiffness, No neck pain, No other Skin: No no symptoms reported, No As described under HPI, No change in color, No change in hair/nails, No dryness, No lesions, No lumps, No rash, No other, No skin related problems, No ulcerations, No rash on exposed areas, No ulcerations on exposed areas Psychiatric/Neurological: No no symptoms reported, No As described under HPI, No anxiety, No depression, No emotional problems, No headache, No numbness, No pre-existing deficit, No seizure, No tingling, No tremors, No weakness, No other , No focal weakness, No syncope Hematologic: No no symptoms reported, No As described under HPI, No anemia, No blood clots, No easy bleeding, No easy bruising, No swollen glands, No other, No bleeding abnormalities [id number] Hx Patient Social History Alcohol Use: Denies Use Recreational Drug Use: No Smoking Status: Current Everyday Smoker Type Used: Cigarettes 2nd Hand Smoke Exposure: Yes Recent Foreign Travel: No Recent Infectious Disease Expo: No Hospitalization with Isolation: Denies Physical Abuse Screen: No Sexual Abuse: No Immunizations Up To Date Tetanus Booster (TDap): Unknown Date of Pneumonia Vaccine: Feb 01, 2012 Date of Influenza Vaccine: Aug 12, 2013 Past Medical History PMH As described under Assessment. Allergies and Home Medications Allergies Coded Allergies: aspirin (Verified Allergy, Intermediate, 06/19/17) HEAD TO TOE RASH/HIVES ibuprofen (Verified Allergy, Intermediate, 06/19/17) HEAD TO TOE RASH/HIVES Tetanus Vaccines and Toxoid (Verified Allergy, Unknown, 06/19/17) Home Medications Albuterol Sulfate 2.5 Mg/3 Ml Vial.neb, 2.5 MG IH Q4H, (Reported) Atenolol 50 Mg Tablet, 50 MG PO DAILY, (Reported) Atorvastatin Calcium 20 Mg Tablet, 20 MG PO DAILY, (Reported) Gabapentin 400 Mg Capsule, 400 MG PO TID, (Reported) Glipizide 10 Mg Tablet, 10 MG PO DAILY, (Reported) Oxybutynin Chloride 10 Mg Tab.er.24, 10 MG PO DAILY, (Reported) Physical Exam-Cardiology Physical Exam Vital Signs/I&O Vital Sign - Last 12Hours 06/21/17 06/21/17 06/21/17 06/21/17 02:00 02:00 02:45 03:00 Pulse 141 138 138 Resp 12 28 9 B/P (MAP) 120/87 100/55 121/80 Pulse Ox 90 95 95 O2 Delivery Nasal Cannula Nasal Cannula Nasal Cannula O2 Flow Rate 2.00 2.00 2.00 2.00 06/21/17 06/21/17 06/21/17 06/21/17 04:00 04:00 04:00 04:46 Temp 101.3 101.3 Pulse 134 Resp 11 B/P (MAP) 98/78 Pulse Ox 92 O2 Delivery Nasal Cannula Nasal Cannula Nasal Cannula O2 Flow Rate 2.00 2.00 2.00 06/21/17 06/21/17 06/21/17 06/21/17 05:00 05:16 06:00 06:49 Temp 101.4 Pulse 147 120 Resp 20 16 B/P (MAP) 91/53 103/60 Pulse Ox 93 92 98 O2 Delivery Nasal Cannula Nasal Cannula Nasal Cannula O2 Flow Rate 2.00 2.00 2.00 06/21/17 06/21/17 06/21/17 06/21/17 07:00 08:00 08:00 09:00 Temp 98.2 Pulse 135 125 144 Resp 18 28 B/P (MAP) 97/64 103/58 Pulse Ox 95 95 96 O2 Delivery Nasal Cannula Room Air Nasal Cannula O2 Flow Rate 2.00 2.00 06/21/17 06/21/17 10:23 12:00 Temp 98.6 Pulse 100 Resp 22 B/P (MAP) 87/58 Pulse Ox 96 98 O2 Delivery Nasal Cannula OxyMask O2 Flow Rate 2.00 7.00 Intake and Output 06/22/17 00:00 Intake Total 1000 ml Balance 1000 ml Capillary Refill : Constitutional: No appears stated age, No AAO x 3, No apparent distress, No PERRL, No well-developed, No well-nourished, No other HEENT: No PERRL, No normal ENT inspection, No TMs normal, No pharynx normal, No scleral icterus (R), No scleral icterus (L), No pale conjunctivae (R), No pale conjunctivae (L), No photophobia, No TM abnormal (R), No TM abnormal (L), No pharyngeal erythema, No tonsillar exudate, No other, No discharge, No EOMI, No hearing is well preserved, No hard of hearing, No oral hygience is good, No ulceration, No xanthelasmas are seen Neck: No non-tender, No full range of motion, No supple, No normal inspection, No carotid bruit, No limited range of motion, No lymphadenopathy (R), No lymphadenopathy (L), No tender lateral, No tender midline, No thyromegaly, No other, No carotid pulses are 2 + bilaterally, No with good upstrokes Respiratory: No accessory muscle use, No respiratory distress, No chest tender , No chest expansion is symmetric, No chest is bilaterally symmetric, No lungs clear to percussion, No lungs clear to auscultation, No crackles, No rhonchi, No rales, No stridor, No wheezing, No pleural rub, No other Cardiovascular: irregularly irregular, tachycardia Gastrointestinal: No tender, No soft, No round, No distended, No pulsatile mass , No organomegaly, No guarding, No rebound, No tenderness, No hernia, No mass, No audible bowel sounds, No abnormal bowel sounds, No abdominal bruits, No spleenomegaly, No other Rectal: deferred Extremities: No normal range of motion, No non-tender, No normal inspection, No pedal edema, No calf tenderness, No normal capillary refill, No pelvis stable , No calf tenderness, No inflammation, No pedal edema, No slow capillary refill , No swelling, No other, No abrasion, No clubbing, No cyanosis, No ecchymosis, No laceration, No no lower extremity edema bilateral, No significant edema, No tenderness, No wound Neurologic/Psychiatric: No treasurer II-XII nml as tested, No no motor/sensory deficits, No alert, No normal mood/affect, No oriented x 3, No abnormal cerebellar tests, No abnormal treasurer II-XII, No abnormal gait, No aphasia, No EOM palsy, No facial droop, No motor weakness, No sensory deficit, No depressed affect, No disoriented x 3, No other, No grossly intact, No power is 5/5 both on sides Skin: No normal color, No warm/dry, No cyanosis, No cool, No diaphoresis, No damp, No ecchymosis, No jaundice, No mottled, No pallor, No rash, No tattoos/ piercings, No ulcerations, No rash on exposed areas, No ulcerations on exposed areas, No other Data Review Labs Laboratory Tests 06/20/17 18:15: Vancomycin Level Trough 13.1 06/21/17 05:16: White Blood Count 14.3H, Red Blood Count 4.18L, Hemoglobin 12.6, Hematocrit 39, Mean Corpuscular Volume 93, Mean Corpuscular Hemoglobin 30, Mean Corpuscular Hemoglobin Concent 33, Red Cell Distribution Width 14.9H, Platelet Count 274, Mean Platelet Volume 9.6, Neutrophils (%) (Auto) 90H, Lymphocytes (%) (Auto) 3L , Monocytes (%) (Auto) 7, Eosinophils (%) (Auto) 0, Basophils (%) (Auto) 0, Neutrophils # (Auto) 12.9H, Lymphocytes # (Auto) 0.5L, Monocytes # (Auto) 1.0, Eosinophils # (Auto) 0.0, Basophils # (Auto) 0.0, Sodium Level 135, Potassium Level 3.5L, Chloride Level 100, Carbon Dioxide Level 25, Anion Gap 10, Blood Urea Nitrogen 8, Creatinine 0.66, Estimat Glomerular Filtration Rate > 60, BUN/ Creatinine Ratio 12, Glucose Level 127H, Calcium Level 9.1, Phosphorus Level 2.0L, Magnesium Level 1.4L Microbiology 06/19/17 Blood Culture - Preliminary, Resulted No growth ECG Impression ECG Initial ECG Impression: Atrial Fibrillation w/RVR A/P-Cardiology Assessment/Admission Diagnosis Sepsis, Lung mass, Diabetes, Hypertension, Remote history of stroke, Atrial fibrillation with rapid ventricular rate. Plan Atrial fibrillation with rapid ventricular rate: Continue IV fluids. Continue Cardizem infusion as well as [id number] Lopressor 5 mg every 6 hours. We will plan to change to by mouth medication tomorrow. The patient has elevated CHADSVASC score of 6 due to hypertension, gender, age, history of stroke, diabetes. therefore, she is at elevated risk for stroke and therefore oral anticoagulation is recommended if there is no contraindication. We'll start Eliquis 5 mg twice a day. Atrial fibrillation is likely secondary to underlying cause of sepsis, pneumonia and hypoxemia. Echocardiogram when the patient's heart rate is better controlled. Sepsis: Likely secondary to pneumonia. Continue broad-spectrum antibiotics and IV fluids. Lung mass: Deferred to primary team and Dr. Alcala. Thank you for your consultation. Please call me if you have any questions. Michelle Gloria MD, FACP, FACC, [facility] [place], FHRS, CCDS Interventional Cardiology Cardiac Electrophysiology Vascular Medicine and Endovascular Interventions Clinical Quality Measures DVT/VTE Risk/Contraindication: Risk Factor Score Per Nursin RFS Level Per Nursing on Admit: 4+=Very High Fahad GLORIA MD Jun 21, 2017 11:48 am
[2017-06-21] MEDS: KCL 20 MEQ TAB (K-DUR) PO SCH (13:20)
[2017-06-21] MEDS: MAGNESIUM 1 GM/100 ML IVPB 100 ML IV SCH (13:20)
[2017-06-21] MEDS: POTASSIUM CL 10MEQ/50ML IVPB 50 ML IV SCH (13:27)
[2017-06-21] MEDS ORDERED: ENOXAPARIN 100 MG/1 ML (LOVENOX) SYR SC SCH (21:00)
[2017-06-21] MEDS ORDERED: APIXABAN 5 MG (ELIQUIS) TABLET PO SCH (21:00)
[2017-06-22] VITALS (13 sets, daily range): BP systolic 82–135; BP diastolic 50–73
[2017-06-22 00:18] LABS: ALBUMIN 2.8 GM/DL (3.2-4.5); CALCIUM 9.4 MG/DL (8.5-10.1); CREATININE SERUM 1.41 MG/DL (0.60-1.30); MAGNESIUM 1.7 MG/DL (1.8-2.4); POTASSIUM 4.5 MMOL/L (3.6-5.0)
[2017-06-22] MEDS ORDERED: NS IV 500 ML 500 ML ONE (00:19)
[2017-06-22] MEDS: DILTIAZEM DRIP 100 MG in SODIUM CHLORIDE (ADD-VANTAGE) 100 ML IV SCH ×2 (00:29→08:14)
[2017-06-22] MEDS: RT-ALBUTEROL/IPRATROPIUM 3 ML (DUONEB) VIAL INH SCH ×3 (02:09→10:29)
[2017-06-22] MEDS ORDERED: ALBUMIN 25% 25 GM/100 ML 200 ML IV ONE (02:33)
[2017-06-22] MEDS ORDERED: ALBUMIN 25% 25 GM/100 ML 100 ML IV ONE ×2 (02:45→03:45)
[2017-06-22] MEDS ORDERED: NS IV 500 ML 500 ML IV ONE (04:00)
[2017-06-22 05:06] LABS: BASOPHILS % (AUTO) 0 % (0-10); EOSINOPHILS # (AUTO) 0.1 10^3/uL (0.0-0.3); EOSINOPHILS % (AUTO) 0 % (0-10); LYMPHOCYTES # (AUTO) 0.6 X 10^3 (1.0-4.0); LYMPHOCYTES % (AUTO) 4 % (12-44); MEAN CORPUSCULAR HEMOGLOBIN 30 PG (25-34); MEAN CORPUSCULAR HGB CONC 32 G/DL (32-36); MEAN CORPUSCULAR VOLUME 95 FL (80-99); MEAN PLATELET VOLUME 9.7 FL (7.4-10.4); MONOCYTES % (AUTO) 7 % (0-12); NEUTROPHILS # (AUTO) 13.1 X 10^3 (1.8-7.8); NEUTROPHILS % (AUTO) 89 % (42-75); PLATELET COUNT 280 10^3/uL (130-400); RED BLOOD COUNT 3.77 10^6/uL (4.35-5.85); RED CELL DISTRIBUTION WIDTH 15.6 % (10.0-14.5); WHITE BLOOD COUNT 14.7 10^3/uL (4.3-11.0)
[2017-06-22 05:29] LABS: CREATININE SERUM 1.68 MG/DL (0.60-1.30)
[2017-06-22 05:33] LABS: MAGNESIUM 1.9 MG/DL (1.8-2.4); PHOSPHORUS 4.2 MG/DL (2.3-4.7)
--- NOTE | 2017-06-22 05:42 | Pulmonary Progress Note ---
Subjective Time Seen by Provider: 06:11 Subjective/Events-last exam Pt appears worse today. SHe is requiring more oxygen and desaturating fast with exertion and if oxygen is taken off. Exam Exam Vital Signs Date Time Temp Pulse Resp B/P (MAP) Pulse Ox O2 Delivery O2 Flow Rate FiO2 06/22/17 05:31 OxyMask 7.00 06/22/17 05:00 101 24 99/57 OxyMask 6.00 06/22/17 04:02 98.6 OxyMask 6.00 06/22/17 04:00 94 OxyMask 6.00 06/22/17 04:00 112 28 92/54 OxyMask 6.00 06/22/17 03:00 111 27 104/55 OxyMask 6.00 06/22/17 02:10 93 OxyMask 6.00 06/22/17 02:00 109 23 98/64 97 OxyMask 6.00 06/22/17 01:00 111 06/22/17 01:00 89 26 92/56 93 OxyMask 6.00 06/22/17 00:53 99.1 OxyMask 6.00 06/22/17 00:29 98.6 112 14 111/67 92 3.00 06/22/17 00:00 116 21 108/70 Nasal Cannula 3.00 06/22/17 00:00 93 OxyMask 6.00 06/21/17 23:00 113 12 110/65 Nasal Cannula 3.00 06/21/17 22:26 92 Nasal Cannula 3.50 06/21/17 22:00 117 17 117/71 Nasal Cannula 3.00 06/21/17 21:00 112 14 111/67 94 Nasal Cannula 3.00 06/21/17 20:00 Nasal Cannula 3.00 06/21/17 20:00 122 32 127/79 94 Nasal Cannula 3.00 06/21/17 19:35 97.2 101 22 102/66 94 Nasal Cannula 3.00 06/21/17 19:35 98.6 60 24 98/59 92 7.00 06/21/17 19:00 109 06/21/17 18:00 60 24 98/59 92 OxyMask 7.00 06/21/17 17:00 115 28 104/67 94 OxyMask 7.00 06/21/17 16:00 105 29 107/72 93 OxyMask 7.00 06/21/17 15:17 93 Nasal Cannula 3.50 06/21/17 15:00 124 13 116/59 OxyMask 7.00 06/21/17 14:41 97 6 98/68 93 3.00 06/21/17 14:00 122 13 100/65 OxyMask 7.00 06/21/17 13:00 118 06/21/17 13:00 116 29 83/59 OxyMask 7.00 06/21/17 12:00 98.6 100 22 87/58 98 OxyMask 7.00 06/21/17 10:23 96 Nasal Cannula 2.00 06/21/17 09:00 144 28 103/58 96 Nasal Cannula 2.00 06/21/17 08:00 95 Room Air 06/21/17 08:00 98.2 125 18 97/64 95 Nasal Cannula 2.00 06/21/17 07:00 135 06/21/17 06:49 98 Nasal Cannula 2.00 06/21/17 06:00 120 16 103/60 92 Nasal Cannula 2.00 General Appearance: No Apparent Distress, WD/WN, Moderate Distress, Obese HEENT: PERRL/EOMI, Normal ENT Inspection Neck: Full Range of Motion, Normal Inspection, Non Tender, Supple Respiratory: Chest Non Tender, Normal Breath Sounds, Accessory Muscle Use, Decreased Breath Sounds, Rhonci, Other Cardiovascular: Regular Rate, Rhythm Gastrointestinal: normal bowel sounds, non tender, soft Extremity: Normal Capillary Refill, Normal Inspection, No Calf Tenderness Neurologic/Psychiatric: Alert, Oriented x3, No Motor/Sensory Deficits, Normal Mood/Affect, fuselage framer II-XII Norm as Tested Skin: Warm/Dry Results Lab Laboratory Tests 06/20/17 11:03 06/21/17 05:16 06/21/17 23:38 06/22/17 04:42 Assessment/Plan Assessment/Plan sepsis with Pneumonia -HCAP - vanco and zosyn and await edouard cultures -Levaquin IV - will add secondary to worsening clinical status while on Vanco Zosyn. Cultures are negative. PT has not been able to produce a sputum. -IVF 125cc/hr with NS -Check ABG Acute renal failure with only 75cc x 10 hrs -bladder scan, flush wilson -S/P albumin -D/C oxybutin, and Neurontin -Will check urine chemistry prior to giving lasix 40mg IV X 1 Hypoglycemia -D/C glipizide Left apical lung mass-- Cancer until proven otherwise. -Will plan on doing bronchoscopy with EBUS as out patient once patient is stable A Fib RVR -Cardizem gtt -pt is on eliquis Tobacco dependance I discussed CODE options with patient and with RN at bedside. PT states she wants to remain a full code. She is ok with intubation, tracheostomy and retirement ventilation. I do not believe patient understands the extent of her disease process and she is currently in denial. I am going to consult hospice for education. Pt's prognosis is poor and she appears to be continuing to decline. I believe she will require ventilator support and I am also concerned about her ARF. 60min spent with patient and medical team discussing current condition, medical options, and prognosis. Clinical Quality Measures DVT/VTE Risk/Contraindication: Risk Factor Score Per Nursin RFS Level Per Nursing on Admit: 4+=Very High JANIS GUZMAN DO Jun 22, 2017 05:42
[2017-06-22 05:43] LABS: CALCIUM 9.1 MG/DL (8.5-10.1); POTASSIUM 4.5 MMOL/L (3.6-5.0)
[2017-06-22] MEDS ORDERED: FUROSEMIDE 40 MG/4 ML INJ (LASIX) IVP ONE (06:00)
[2017-06-22] MEDS: VANCOMYCIN 1250 MG/NS 250 ML IVPB IV SCH ×2 (06:28)
[2017-06-22] MEDS: MAGNESIUM 1 GM/100 ML IVPB 100 ML IV SCH (06:32)
[2017-06-22] MEDS: POTASSIUM CL 10MEQ/50ML IVPB 50 ML IV SCH (06:32)
[2017-06-22] MEDS: KCL 20 MEQ TAB (K-DUR) PO SCH (06:32)
[2017-06-22 06:37] LABS: POTASSIUM URINE RANDOM 44 MMOL/L (25-125)
[2017-06-22 06:56] LABS: ABG BASE EXCESS -3.3 MMOL/L (-2.5-2.5); ABG HCO3 24 MMOL/L (23-27); ABG OXYGEN SATURATION 94 % (94-100); ABG PCO2 68 MMHG (35-45); ABG PO2 85 MMHG (79-93); ABG TCO2 25.9 MMOL/L (21.0-31.0)
[2017-06-22 06:58] LABS: ABG PH 7.18 (7.37-7.43); ALLENS TEST POSITIVE
[2017-06-22] MEDS: PIPERACILLIN/TAZOBACTAM 4.5 GM/NS 100 ML IVPB IV SCH ×2 (06:58)
[2017-06-22 06:59] LABS: PATIENT TEMP 99.8
[2017-06-22] MEDS ORDERED: SODIUM BICARB 8.4% 50 MEQ/50 ML (ABBOTT) SYR IV ONE (07:15)
--- NOTE | 2017-06-22 07:34 | Diagnostic Imaging Report ---
INDICATION: Followup exam. FINDINGS: Frontal view of the chest is compared to exam from yesterday. Dense infiltrates in the right upper lobe have slightly improved. A round nodular infiltrate in the left upper lobe slightly better. A solid mass cannot be excluded. A 1.8 cm nodule is present on left lower lobe. This is better visualized due to the decreasing infiltrate. IMPRESSION: Bilateral pulmonary infiltrates have slightly improved. There is a mass in the left lower lobe. Round infiltrate in the left upper lobe may also be a mass. Dictated by: Dictated on workstation # [id number]
--- NOTE | 2017-06-22 08:00 | Diagnostic Imaging Report ---
INDICATION: Followup shortness of air, ICU care management FINDINGS: Portable view of the chest demonstrates slight increase of the dense infiltrate in the right upper lobe. Some infiltrates in the right perihilar region extending into the lower lung not appreciably changed. Masslike density in the left upper lobe and along the left heart border unchanged. No pleural effusions are present. IMPRESSION: 1. Slight increase of the right pulmonary infiltrates 2. Masslike densities in the left lung are again identified. Dictated by: Dictated on workstation # [id number]
--- NOTE | 2017-06-22 08:33 | Pulmonary Progress Note ---
Standard Progress Note Progress Notes Time Seen by Provider: 08:29 Assessment & Plan sepsis with Pneumonia -HCAP - vanco and zosyn and await edouard cultures -Levaquin IV - will add secondary to worsening clinical status while on Vanco Zosyn. Cultures are negative. PT has not been able to produce a sputum. -IVF 125cc/hr with NS -ABG reviewed Acute renal failure with only 75cc x 10 hrs -bladder scan, flush wilson -S/P albumin -D/C oxybutin, and Neurontin -Will check urine chemistry prior to giving lasix 40mg IV X 1 Hypoglycemia -D/C glipizide Left apical lung mass-- Cancer until proven otherwise. -Will plan on doing bronchoscopy with EBUS as out patient once patient is stable A Fib RVR -Cardizem gtt -pt is on eliquis Tobacco dependance Called to bedside secondary to worsening respiratory failure with accessory muscle use. Caregiver is now at bedside. I explained to caregiver the extent of patients disease process. Secondary to patients declining condition I will proceed with intubation. 15min spent with patient and caregiver explaining condition and plan of care. JANIS GUZMAN DO Jun 22, 2017 08:33
[2017-06-22] MEDS ORDERED: PROPOFOL DRIP (ICU) 100 ML IV SCH (08:45)
[2017-06-22] MEDS ORDERED: NS IV 1000 ML 1,000 ML IV SCH (08:45)
[2017-06-22] MEDS ORDERED: MIDAZOLAM 5 MG/5 ML (VERSED) VIAL IVP NR (08:48)
[2017-06-22] MEDS ORDERED: LEVOFLOXACIN 750 MG/150 ML IV 150 ML IV SCH (09:00)
--- NOTE | 2017-06-22 09:52 | Pulmonary Procedures ---
Pulmonary Procedures Date of Procedure Date of Service: Jun 22, 2017 Bronch Bronchoscopy with bronchoalveolar lavage (BAL) of FABY and right lung washing. Preop DX Pneumonia, mucous plugging and LLL mass. No endobronchial lesions noted Postop DX: same Complications: none After informed consent obtained and formal time out pt was sedated using Diprivan Versed. Bronchoscope was advanced through the ET tube. . An anatomical tour was undertaken down to the segmental bronchi bilaterally. No endobronchial lesions noted. From the RML a bronchoalveolar lavage (BAL) of FABY and right lung washing were obtained. Pt tolerated procedure well. No complications noted. Stat CXR is pending. JANIS GUZMAN DO Jun 22, 2017 09:52
--- NOTE | 2017-06-22 09:53 | Pulmonary Procedures ---
Pulmonary Procedures Date of Procedure Date of Service: Jun 22, 2017 Reason for Intubation: respiratory failure Time of Intubation: 09:52 Intubation Method: orotracheal Medications: Propofol, Versed Positive End Tide CO2: Yes Breath Sounds after Intubation: bilateral-equal Intubation Complications: no complications Post Intubation Xray: Yes JANIS GUZMAN DO Jun 22, 2017 09:53
[2017-06-22] MEDS ORDERED: CHLORHEXIDINE 0.12% SOLN 15 ML (PERIDEX) UDC ONE (09:58)
[2017-06-22] MEDS: NS IV 1000 ML 1,000 ML IV SCH (10:21)
--- NOTE | 2017-06-22 11:41 | Diagnostic Imaging Report ---
CLINICAL INDICATION: Patient intubated. EXAM: Portable chest x-ray semiupright view. COMPARISON: Portable chest x-ray dated 06/22/2017 at 0517 hours. FINDINGS: There is interval placement of ET tube with tip seen grossly 4.3 cm in the expected region of the patrick. There is interval placement of nasogastric or orogastric feeding tube, which is below level diaphragm and incompletely imaged. There are stable consolidation of the right upper lobe and area of consolidation in the left upper lobe and patchy areas of infiltrates in both lower lung for regions. There is interval opacification involving the periphery of the right lung base which may represent small pleural effusion. There is no pneumothorax. Pulmonary vasculature and cardiac silhouettes within normal limits. The remainder of this exam shows no significant interval change compared to the prior study of comparison. IMPRESSION: 1: Interval placement of ET tube and nasogastric or orogastric feeding tube in good position, as described above. 2: Suspected interval small pleural effusion. 3: Stable bilateral lung infiltrates and patchy areas of consolidation, as described above. Dictated by: Dictated on workstation # [id number]
--- NOTE | 2017-06-22 12:28 | Discharge Summary ---
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 HLD HTN COPD Discharge Diagnosis Sepsis secondary to pneumonia- on admission febrile and with leukocytosis, CXR with middle lobe infiltrate Vancomycin/zosyn, IVF, sputum and blood cultures 06/22- worsened respiratory status requiring intubation, bronchoscopy done with washings of left and right side Atrial fibrillation with RVR- likely secondary to lung pathology, Cardiology consulted, appreciate assistance -Transferred to ICU 06/21 early am and started on cardizem drip and enoxaparin treatment dose, heart rate remains elevated with borderline low blood pressure Acute renal insufficiency- overnight 06/21 into 06/22, minimal urine output with no response to furosemide, worsening creatinine in the am concerning for ATN with fluid overload and oliguria, discussed with Dr. Johnson at [facility] in [place] and accepted in transfer Lung mass- plan for continued work-up outpatient, cytology from bronchoscopy lavage H/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- repeated imaging last hospital visit within last couple of weeks showed no new infarct or mass, but has recurrent intermittent speech and swallow issues, is seeing ST outpatient DMII with peripheral neuropathy- resumed home medications and sliding scale insulin, diabetic diet HLD- resumed home statin HTN- continued home atenolol COPD- RT, duonebs q4 Chief Complaint/HPI Chief Complaint/HPI 66 yo admitted to hospital from Pulm clinic after being unable to walk yesterday due to weakness and noted to have fever of 103 in clinic, concern for pneumonia. She today admits epigastric pain and cough. She denies mucous or hemoptysis. She does use oxygen at night already. She states her pain is improved with belching. Discharge Summary-Simple/Stand Procedures Intubation Bronchoscopy Consultations Discharge Physical Examination Allergies: Coded Allergies: aspirin (Verified Allergy, Intermediate, 06/19/17) HEAD TO TOE RASH/HIVES ibuprofen (Verified Allergy, Intermediate, 06/19/17) HEAD TO TOE RASH/HIVES Tetanus Vaccines and Toxoid (Verified Allergy, Unknown, 06/19/17) Vitals & I&Os Vital Sign - Last 12Hours Date Time Temp Pulse Resp B/P (MAP) Pulse Ox O2 Delivery O2 Flow Rate FiO2 9/1/17 10:29 101 18 100 100 06/22/17 08:45 101.2 OxyMask 10.00 General Appearance: Other (intubated) Respiratory: Other (ronchi) Cardiovascular: Other (tachycardic, irregular) Abdominal: Other (distended) Hospital Course See final discharge diagnosis. Labs Laboratory Tests Test 06/20/17 18:15 06/21/17 05:16 06/21/17 22:17 06/21/17 22:50 Range/Units Vancomycin Level Trough 13.1 10.0-20.0 UG/ML White Blood Count 14.3 H 4.3-11.0 10^3/uL Red Blood Count 4.18 L 4.35-5.85 10^6/uL Hemoglobin 12.6 11.5-16.0 G/DL Hematocrit 39 35-52 % Mean Corpuscular Volume 93 80-99 FL Mean Corpuscular Hemoglobin 30 25-34 PG Mean Corpuscular Hemoglobin Concent 33 32-36 G/DL Red Cell Distribution Width 14.9 H 10.0-14.5 % Platelet Count 274 130-400 10^3/uL Mean Platelet Volume 9.6 7.4-10.4 FL Neutrophils (%) (Auto) 90 H 42-75 % Lymphocytes (%) (Auto) 3 L 12-44 % Monocytes (%) (Auto) 7 0-12 % Eosinophils (%) (Auto) 0 0-10 % Basophils (%) (Auto) 0 0-10 % Neutrophils # (Auto) 12.9 H 1.8-7.8 X 10^3 Lymphocytes # (Auto) 0.5 L 1.0-4.0 X 10^3 Monocytes # (Auto) 1.0 0.0-1.0 X 10^3 Eosinophils # (Auto) 0.0 0.0-0.3 10^3/uL Basophils # (Auto) 0.0 0.0-0.1 10^3/uL Sodium Level 135 135-145 MMOL/L Potassium Level 3.5 L 3.6-5.0 MMOL/L Chloride Level 100 98-107 MMOL/L Carbon Dioxide Level 25 21-32 MMOL/L Anion Gap 10 5-14 MMOL/L Blood Urea Nitrogen 8 7-18 MG/DL Creatinine 0.66 0.60-1.30 MG/DL Estimat Glomerular Filtration Rate > 60 BUN/Creatinine Ratio 12 Glucose Level 127 H 70-105 MG/DL Calcium Level 9.1 8.5-10.1 MG/DL Phosphorus Level 2.0 L 2.3-4.7 MG/DL Magnesium Level 1.4 L 1.8-2.4 MG/DL Glucometer 49 *L 82 70-110 MG/DL Test 06/21/17 23:38 06/22/17 04:42 06/22/17 06:00 06/22/17 06:20 Range/Units Sodium Level 135 136 135-145 MMOL/L Potassium Level 4.5 4.5 3.6-5.0 MMOL/L Chloride Level 103 98 98-107 MMOL/L Carbon Dioxide Level 21 16 L 21-32 MMOL/L Anion Gap 11 22 H 5-14 MMOL/L Blood Urea Nitrogen 16 20 H 7-18 MG/DL Creatinine 1.41 H 1.68 H 0.60-1.30 MG/DL Estimat Glomerular Filtration Rate 37 30 BUN/Creatinine Ratio 11 12 Glucose Level 78 126 H 70-105 MG/DL Calcium Level 9.4 9.1 8.5-10.1 MG/DL Magnesium Level 1.7 L 1.9 1.8-2.4 MG/DL B-Type Natriuretic Peptide 535.5 H <100.0 PG/ML Albumin 2.8 L 3.2-4.5 GM/DL White Blood Count 14.7 H 4.3-11.0 10^3/uL Red Blood Count 3.77 L 4.35-5.85 10^6/uL Hemoglobin 11.4 L 11.5-16.0 G/DL Hematocrit 36 35-52 % Mean Corpuscular Volume 95 80-99 FL Mean Corpuscular Hemoglobin 30 25-34 PG Mean Corpuscular Hemoglobin Concent 32 32-36 G/DL Red Cell Distribution Width 15.6 H 10.0-14.5 % Platelet Count 280 130-400 10^3/uL Mean Platelet Volume 9.7 7.4-10.4 FL Neutrophils (%) (Auto) 89 H 42-75 % Lymphocytes (%) (Auto) 4 L 12-44 % Monocytes (%) (Auto) 7 0-12 % Eosinophils (%) (Auto) 0 0-10 % Basophils (%) (Auto) 0 0-10 % Neutrophils # (Auto) 13.1 H 1.8-7.8 X 10^3 Lymphocytes # (Auto) 0.6 L 1.0-4.0 X 10^3 Monocytes # (Auto) 1.0 0.0-1.0 X 10^3 Eosinophils # (Auto) 0.1 0.0-0.3 10^3/uL Basophils # (Auto) 0.0 0.0-0.1 10^3/uL Phosphorus Level 4.2 2.3-4.7 MG/DL Urine Random Sodium < 20 L 50-200 MMOL/L Urine Random Potassium 44 25-125 MMOL/L Urine Random Chloride < 20 L 110-250 MMOL/L Urine Creatinine 66 30-125 MG/DL Test 06/22/17 06:45 06/22/17 11:50 Range/Units Blood Gas Puncture Site RIGHT RADIAL Blood Gas Patient Temperature 99.8 Arterial Blood pH 7.18 *L 7.37-7.43 Arterial Blood Partial Pressure CO2 68 H 35-45 MMHG Arterial Blood Partial Pressure O2 85 79-93 MMHG Arterial Blood HCO3 24 23-27 MMOL/L Arterial Blood Total CO2 25.9 21.0-31.0 MMOL/L Arterial Blood Oxygen Saturation 94 94-100 % Arterial Blood Base Excess -3.3 L -2.5-2.5 MMOL/L Severiano Test POSITIVE Blood Gas Ventilator Setting NO Blood Gas Inspired Oxygen 7 L Glucometer 107 70-110 MG/DL Radiology Reviewed CXR 06/19: IMPRESSION: Dominant masses in the left lung are redemonstrated however there has been development of infiltrate in the right midlung, likely due to pneumonia. Discharge Condition at discharge Critical, transferred Clinical Quality Measures DVT/VTE Risk/Contraindication: Risk Factor Score Per Nursin RFS Level Per Nursing on Admit: 4+=Very High Copy Copies To 1: CHILO Martinze BETHANY N MD Jun 22, 2017 12:28 pm
[2017-06-22] MEDS ORDERED: TROUGH ORDER-PHARMACY XX NR (17:00)
--- NOTE | 2017-06-22 21:54 | Cardiology Progress Note ---
Cardiology SOAP Progress Note Subjective: Late entry. Patient seen at 7.45am Patient in respiratory distress. Objective: I&O/Vital Signs Vital Sign - Last 12Hours 06/22/17 06/22/17 06/22/17 10:00 10:29 11:00 Pulse 121 101 117 Resp 15 18 21 B/P (MAP) 93/60 93/55 Pulse Ox 97 100 91 O2 Delivery Mechanical Ventilator Mechanical Ventilator O2 Flow Rate 100.00 60.00 FiO2 100 Intake and Output 06/23/17 00:00 Output Total 120 ml Balance -120 ml Weight (Pounds): 205 Weight (Ounces): 5.0 Weight (Calculated Kilograms): [id number] Constitutional: No appears stated age, No AAO x 3, No apparent distress, No PERRL, No well-developed, No well-nourished, No other Respiratory: No accessory muscle use, respiratory distress, No chest tender, No chest expansion is symmetric, No chest is bilaterally symmetric, No lungs clear to percussion, No lungs clear to auscultation, crackles, rhonchi, No rales , No stridor, No wheezing, No pleural rub, No other Cardiovascular: irregularly irregular, tachycardia Gastrointestional: No tender, No soft, No round, No distended, No pulsatile mass, No organomegaly, No guarding, No rebound, No tenderness, No hernia, No mass, No audible bowel sounds, No abnormal bowel sounds, No abdominal bruits, No spleenomegaly, No other Extremities: No normal range of motion, No non-tender, No normal inspection, No pedal edema, No calf tenderness, No normal capillary refill, No pelvis stable , No calf tenderness, No inflammation, No pedal edema, No slow capillary refill , No swelling, No other, No abrasion, No clubbing, No cyanosis, No ecchymosis, No laceration, No no lower extremity edema bilateral, No significant edema, No tenderness, No wound Neurologic/Psychiatric: No fabricator industrial furnace II-XII nml as tested, No no motor/sensory deficits, No alert, No normal mood/affect, No oriented x 3, No abnormal cerebellar tests, No abnormal fabricator industrial furnace II-XII, No abnormal gait, No aphasia, No EOM palsy, No facial droop, No motor weakness, No sensory deficit, No depressed affect, No disoriented x 3, No other, No grossly intact, No power is 5/5 both on sides Skin: No normal color, No warm/dry, No cyanosis, No cool, No diaphoresis, No damp, No ecchymosis, No jaundice, No mottled, No pallor, No rash, No tattoos/ piercings, No ulcerations, No rash on exposed areas, No ulcerations on exposed areas, No other Results/Procedures: Labs Laboratory Tests 06/21/17 22:17: Glucometer 49*L 06/21/17 22:50: Glucometer 82 06/21/17 23:38: Sodium Level 135, Potassium Level 4.5, Chloride Level 103, Carbon Dioxide Level 21, Anion Gap 11, Blood Urea Nitrogen 16, Creatinine 1.41H, Estimat Glomerular Filtration Rate 37, BUN/Creatinine Ratio 11, Glucose Level 78, Calcium Level 9.4 , Magnesium Level 1.7L, B-Type Natriuretic Peptide 535.5H, Albumin 2.8L 06/22/17 04:42: Sodium Level 136, Potassium Level 4.5, Chloride Level 98, Carbon Dioxide Level 16L, Anion Gap 22H, Blood Urea Nitrogen 20H, Creatinine 1.68H, Estimat Glomerular Filtration Rate 30, BUN/Creatinine Ratio 12, Glucose Level 126H, Calcium Level 9.1, Magnesium Level 1.9, White Blood Count 14.7H, Red Blood Count 3.77L, Hemoglobin 11.4L, Hematocrit 36, Mean Corpuscular Volume 95, Mean Corpuscular Hemoglobin 30, Mean Corpuscular Hemoglobin Concent 32, Red Cell Distribution Width 15.6H, Platelet Count 280, Mean Platelet Volume 9.7, Neutrophils (%) (Auto) 89H, Lymphocytes (%) (Auto) 4L, Monocytes (%) (Auto) 7, Eosinophils (%) (Auto) 0, Basophils (%) (Auto) 0, Neutrophils # (Auto) 13.1H, Lymphocytes # (Auto) 0.6L, Monocytes # (Auto) 1.0, Eosinophils # (Auto) 0.1, Basophils # (Auto) 0.0, Phosphorus Level 4.2 06/22/17 06:00: Urine Random Sodium < 20L, Urine Random Potassium 44, Urine Random Chloride < 20L, Urine Creatinine 66 06/22/17 06:20: 06/22/17 06:45: Blood Gas Puncture Site RIGHT RADIAL, Blood Gas Patient Temperature 99.8, Arterial Blood pH 7.18*L, Arterial Blood Partial Pressure CO2 68H, Arterial Blood Partial Pressure O2 85, Arterial Blood HCO3 24, Arterial Blood Total CO2 25.9, Arterial Blood Oxygen Saturation 94, Arterial Blood Base Excess -3.3L, Severiano Test POSITIVE, Blood Gas Ventilator Setting NO, Blood Gas Inspired Oxygen 7 L 06/22/17 11:50: Glucometer 107 Microbiology 06/20/17 Blood Culture - Preliminary, Resulted No growth 06/21/17 MRSA Screen - Final, Complete MRSA not isolated A/P: Assessment/Dx: Sepsis, Lung mass, Diabetes, Hypertension, Remote history of stroke, Atrial fibrillation with rapid ventricular rate. respiratory distress Plan: Atrial fibrillation with rapid ventricular rate: Continue IV fluids. Continue Cardizem infusion as well as [id number] Lopressor 5 mg every 6 hours. We will plan to change to by mouth medication tomorrow. The patient has elevated CHADSVASC score of 6 due to hypertension, gender, age, history of stroke, diabetes. therefore, she is at elevated risk for stroke and therefore oral anticoagulation is recommended if there is no contraindication. We'll start Eliquis 5 mg twice a day. Atrial fibrillation is likely secondary to underlying cause of sepsis, pneumonia and hypoxemia. Echocardiogram when the patient's heart rate is better controlled. Sepsis: Likely secondary to pneumonia. Continue broad-spectrum antibiotics and IV fluids. Respiratory distress: spoke to the RN to discuss with Dr Alcala. She told me that there is plan to intubate. [place] Lung mass: Deferred to primary team and Dr. Alcala. Thank you for your consultation. Please call me if you have any questions. Michelle Gloria MD, FACP, FACC, FSCAI, FHRS, CCDS Interventional Cardiology Cardiac Electrophysiology Vascular Medicine and Endovascular Interventions Fahad GLORIA MD Jun 22, 2017 21:54
[2017-06-23] MEDS ORDERED: PANTOPRAZOLE 40 MG/10 ML (PROTONIX) VIAL IV SCH (09:00)
== END 2017-06-22 12:15 | disposition short-term general hospital (02) | DRG 853 ==
LOC: 4TH 15:57 → ICU 06-21 01:54
PROVIDERS: ADMIT Family Medicine; ATTEND Family Medicine
PROC: 0B9G8ZX Drainage of Left Upper Lung Lobe, Via Natural or Artificial Opening Endoscopic, Diagnostic (ICD-10-PCS; principal; 2017-06-22)
PROC: 0B9K8ZX Drainage of Right Lung, Via Natural or Artificial Opening Endoscopic, Diagnostic (ICD-10-PCS; 2017-06-22)
PROC: 5A1935Z Respiratory Ventilation, Less than 24 Consecutive Hours (ICD-10-PCS; 2017-06-22)
DX: A41.9 Sepsis, unspecified organism (principal); J18.9 Pneumonia, unspecified organism; N17.9 Acute kidney failure, unspecified; J96.90 Respiratory failure, unspecified, unspecified whether with hypoxia or hypercapnia; I48.0 Paroxysmal atrial fibrillation; R91.8 Other nonspecific abnormal finding of lung field; T17.900A Unspecified foreign body in respiratory tract, part unspecified causing asphyxiation, initial encounter; J44.9 Chronic obstructive pulmonary disease, unspecified; E11.42 Type 2 diabetes mellitus with diabetic polyneuropathy; E11.649 Type 2 diabetes mellitus with hypoglycemia without coma; F17.210 Nicotine dependence, cigarettes, uncomplicated; I10 Essential (primary) hypertension; E78.00 Pure hypercholesterolemia, unspecified; M19.91 Primary osteoarthritis, unspecified site; I69.320 Aphasia following cerebral infarction; I69.321 Dysphasia following cerebral infarction; E66.9 Obesity, unspecified; Z68.35 Body mass index [BMI] 35.0-35.9, adult; Z99.81 Dependence on supplemental oxygen; Z79.84 Long term (current) use of oral hypoglycemic drugs; Z85.118 Personal history of other malignant neoplasm of bronchus and lung
CPT/HCPCS: 36415; 71010; 71020; 80048; 80051; 80053; 80202; 81000; 82040; 82570; 82805; 82962; 83605; 83735; 83880; 83935; 84100; 85007; 85025; 85027; 87040; 87070; 87081; 87101; 87116; 87205; 93005; 94002; 94640; 94664; 94760

== ENCOUNTER → 2017-06-19 | Outpatient (CLI) | payer MEDICARE ==
[~2017-06-19] MED LIST changes: +ALBU2.5V4 IH
--- NOTE | 2017-06-20 13:54 | Diagnostic Imaging Report ---
EXAMINATION: PET/CT INDICATION: Lung mass TECHNIQUE: PET/CT imaging was obtained from the base of the skull through the pelvis after the administration of 13.15 mCi of F-[address] imaging was utilized for localization and attenuation correction purposes. The low energy CT utilized for attenuation correction is not considered to be of high enough spatial resolution to allow in and of itself a separate anatomical analysis. There are no previous PET/CT examinations available for comparison. The CT chest exam performed on 05/31/17 did note a 4.6 x 4.1 x 3.9 CM irregular mass in the lateral aspect of the left upper lobe. That mass is again identified on this study and does not seem to have changed significantly in size or appearance. This mass is hypermetabolic with a maximum SUV of 7.4. Consequently this finding should be considered neoplastic until proven otherwise. The CT chest exam also identified a circumscribed nodule in the left lower lobe measuring 2.1 CM. This was felt to represent a benign process such as a hamartoma. That lesion is not hypermetabolic on this exam and consequently not felt to be related to malignancy. The previous CT exam did note a few lymph nodes in the right hilum and right pretracheal region. The node in the right pretracheal region has increased in size and now measures 1.6 CM in maximum dimension as opposed to 1.0 CM on the prior study. This node is slightly hypermetabolic with a maximum SUV of 2.6. Also, as noted on the chest exam performed in conjunction with this study there is now a prominent alveolar/interstitial infiltrate involving the right perihilar region. Most likely this is due to pneumonia/atelectasis. The slight enlargement of the pretracheal node on the right in the interval since the prior exam could be related to pneumonia/atelectasis as opposed to neoplastic involvement of the nodes. There is no other hypermetabolic activity identified to suggest the presence of malignancy. Specifically, the nodule associated with the left adrenal gland seen on the previous study is not hypermetabolic. The CT images fail to show any sign of an acute abnormality. The area of encephalomalacia involving the left frontal lobe seen on the MRI brain exam of 05/31/17 is again visualized. IMPRESSION: 1. The mass in the left upper lung seen previously is hypermetabolic and should be considered neoplastic until proven otherwise. 2. The nodes in the mediastinum have increased in size somewhat since the prior exam and the nodes do show slight hyper metabolic activity. However these nodes may represent reactive nodes secondary to the prominent area of pneumonia/atelectasis involving the right perihilar region. The possibility that there are involved by neoplasm cannot be entirely excluded however. 3. No other hypermetabolic activity is seen to suggest the presence of malignancy. Specifically, the nodule in the left lung base and the nodule associated with the left adrenal gland are not hypermetabolic. 4. These results were discussed with REDDY Rangel.. Dictated by: Dictated on workstation # [id number]
== END ==
LOC: RAD 08:34
PROVIDERS: ATTEND Nurse Practitioner Adult Health
DX: R06.02 Shortness of breath (principal)
CPT/HCPCS: 78816